=== PATIENT | female | born 1945 | race Caucasian/White ===

== ENCOUNTER 2016-08-18 21:52 | Inpatient (IN) | payer MEDICARE ==
[2016-08-18] MEDS ORDERED: ONDANSETRON 4 MG/2 ML VIAL IVP STA (22:17)
[2016-08-18] MEDS ORDERED: ASPIRIN 325 MG TAB PO STA (22:56)
[2016-08-18] MEDS ORDERED: SODIUM CHLORIDE 0.9% 1,000 ML IV ONE (22:56)
[2016-08-18] MEDS ORDERED: LABETALOL 5 MG/ML VIAL MDV IVP STA (23:03)
[2016-08-18 23:25] LABS: Basophils % (A) 0 %; CH 32.2; CHCM 37.2; Eosinophils # (A) 0.1 k/uL (0-0.7); Eosinophils % (A) 1 %; HGB 14.2 gm/dL (11.4-16.0); Luc % (Auto) 3; Lymphocytes # (A) 1.1 k/uL (1.0-4.8); Lymphocytes % (A) 14 %; MCH 32.5 pg (25.0-35.0); MCHC 37.5 g/dL (31.0-37.0); MCV 86.7 fL (80.0-100.0); Monocytes # (A) 0.5 k/uL (0-1.0); Monocytes % (A) 7 %; Neutrophils # (A) 5.7 k/uL (1.3-7.7); Neutrophils % (A) 75 %; RBC 4.38 m/uL (3.80-5.40); RDW 12.2 % (11.5-15.5); WBC 7.6 k/uL (3.8-10.6); WBC (Perox) 7.77
[2016-08-18 23:36] LABS: Blood Urea Nitrogen 19 mg/dL (7-17); Calcium 8.8 mg/dL (8.4-10.2); Carbon Dioxide 26 mmol/L (22-30); Chloride 85 mmol/L (98-107); Glucose 103 mg/dL (74-99); Non-African American GFR(MDRD) >60 (>60 ml/min/1.73 sqM)
[2016-08-18 23:37] LABS: Anion Gap 8 mmol/L
[2016-08-18 23:41] LABS: Potassium 2.8 mmol/L (3.5-5.1); Sodium 119 mmol/L (137-145)
[2016-08-18] MEDS ORDERED: POTASSIUM CHLORIDE ER 20 MEQ TAB.ER PO STA (23:44)
[2016-08-18] MEDS ORDERED: METOCLOPRAMIDE 5 MG/ML 2 ML VIAL IVP STA (23:58)
[2016-08-18] MEDS ORDERED: diphenhydrAMINE 50 MG/ML 1 ML VIAL IVP STA (23:58)
--- NOTE | 2016-08-19 00:14 | XR ---
Exam: XR CXR 2 VIEWS History: Dizzy. Comparison: 03/19/13. Technique: 2 views. Findings: No focal consolidation or significant effusion. The heart shadow is mildly enlarged. Impression: Mildly enlarged heart shadow. No focal consolidation or significant pleural effusion.
[2016-08-19] MEDS ORDERED: NALOXONE 0.4 MG/ML 1 ML VIAL IV PRN (00:17)
[2016-08-19] MEDS ORDERED: MORPHINE SULFATE 4 MG/ML SYRINGE IV PRN (00:17)
[2016-08-19] MEDS ORDERED: ONDANSETRON 4 MG/2 ML VIAL IVP PRN (00:17)
[2016-08-19] MEDS ORDERED: HYDROcodone/APAP 5-325MG 1 EACH TAB PO PRN (00:25)
[2016-08-19] MEDS ORDERED: LORazepam 0.5 MG TAB PO PRN (00:25)
[2016-08-19] MEDS ORDERED: SODIUM CHLORIDE 0.9% 1,000 ML IV SCH (00:30)
--- NOTE | 2016-08-19 00:30 | ED ---
General Adult HPI - General Chief complaint: ENT Stated complaint: FLU-LIKE SYMPTOMS; LIGHT HEADEDNESS Source: EMS Mode of arrival: EMS Limitations: no limitations - History of Present Illness Initial comments: 71-year-old female presented for evaluation of a constellation of symptoms including dizziness, nausea, vomiting, shortness of breath, and lightheadedness. She states that she has been intermittently having his symptoms since Friday but then became much worse. She states she was seen by Dr. Ward who changed her blood pressure medication from diltiazem to hydrochlorothiazide. She was also recently started on a Z-Matthew and prednisone for strep throat although the initial swab was negative and the culture was sent. 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 Gonzalez. Severity scale (1-10): 0 - Related Data Home Medications Medication Instructions Recorded Confirmed Aspirin 325 mg PO DAILY 09/10/15 08/18/16 Colesevelam [Welchol] 1,250 mg PO TID-W/MEALS 09/10/15 08/18/16 LORazepam [Ativan] 0.5 mg PO BID PRN 09/10/15 08/18/16 Levothyroxine Sodium [Synthroid] 50 mcg PO HS 09/10/15 08/18/16 Losartan Potassium 100 mg PO AC-BRKFST 09/10/15 08/18/16 OXcarbazepine [Trileptal] 300 mg PO QAM 09/10/15 08/18/16 amLODIPine BESYLATE [Norvasc] 10 mg PO AC-SUPPER 09/10/15 08/18/16 OXcarbazepine [Oxcarbazepine] 600 mg PO HS 09/11/15 08/18/16 Azithromycin [Zithromax Z-pack] See Taper PO DAILY 08/18/16 08/18/16 Hydrochlorothiazide 25 mg PO QAM 08/18/16 08/18/16 Hydrocodone/Acetaminophen [[place] 1 tab PO Q6HR PRN 08/18/16 08/18/16 5-325] methylPREDNISolone Dose Pack See Taper PO DAILY 08/18/16 08/18/16 [Medrol Dose Pack] Allergies Allergy/AdvReac Type Severity Reaction Status Date / Time nitroglycerin AdvReac Seizure Verified 08/18/16 23:09 with Patch Review of Systems ROS Statement: Those systems with pertinent positive or pertinent negative responses have been documented in the HPI. ROS Other: All systems not noted in ROS Statement are negative. Constitutional: Denies: fever, chills Eyes: Denies: eye pain, eye discharge ENT: Reports: throat pain. Denies: ear pain Respiratory: Reports: dyspnea. Denies: cough Cardiovascular: Denies: chest pain, palpitations, dyspnea on exertion, orthopnea Endocrine: Reports: fatigue. Denies: polydipsia, polyuria Gastrointestinal: Denies: abdominal pain, nausea, vomiting, diarrhea, constipation, hematemesis Genitourinary: Denies: urgency, dysuria Musculoskeletal: Denies: back pain, arthralgia, myalgia Skin: Denies: rash, lesions Neurological: Reports: weakness, other (Dizziness/lightheadedness). Denies: headache Psychiatric: Denies: anxiety, depression Hematological/Lymphatic: Denies: easy bleeding, easy bruising 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 Past Anesthesia/Blood Transfusion Reactions: No Reported Reaction Past Psychological History: No Psychological Hx Reported Smoking Status: Never smoker Past Alcohol Use History: None Reported Past Drug Use History: None Reported - Past Family History Mother Family Medical History: Congestive Heart Failure (CHF), Dementia, Renal Disease Father Family Medical History: Myocardial Infarction ([place]) General Exam Limitations: no limitations General appearance: alert, in no apparent distress Head exam: Present: atraumatic, normocephalic, normal inspection Eye exam: Present: normal appearance, PERRL, EOMI. Absent: scleral icterus, conjunctival injection, periorbital swelling ENT exam: Present: normal exam, mucous membranes moist Neck exam: Present: normal inspection. Absent: tenderness, meningismus, lymphadenopathy Respiratory exam: Present: normal lung sounds bilaterally. Absent: respiratory distress, wheezes, rales, rhonchi, stridor Cardiovascular Exam: Present: regular rate, normal rhythm, normal heart sounds. Absent: systolic murmur, diastolic murmur, rubs, gallop, clicks GI/Abdominal exam: Present: soft, normal bowel sounds. Absent: distended, tenderness, guarding, rebound, rigid Rectal exam: Present: deferred Extremities exam: Present: normal inspection, full ROM, normal capillary refill. Absent: tenderness, pedal edema, joint swelling, calf tenderness Back exam: Present: normal inspection Neurological exam: Present: alert, oriented X3, CN II-XII intact Psychiatric exam: Present: normal affect, normal mood Skin exam: Present: warm, dry, intact, normal color. Absent: rash Course Vital Signs 08/18/16 08/18/16 08/18/16 21:56 23:17 23:52 Temperature 97.6 F 97.9 F Pulse Rate 67 65 Pulse Rate [ Speech And Hearing Director ] Respiratory 16 18 16 Rate Blood Pressure 220/93 165/71 Blood Pressure 187/79 [Right Arm Supine] O2 Sat by Pulse 100 99 98 Oximetry 08/19/16 01:36 Temperature 98.0 F Pulse Rate Pulse Rate [ 75 Speech And Hearing Director ] Respiratory 16 Rate Blood Pressure Blood Pressure 179/75 [Right Arm Supine] O2 Sat by Pulse 97 Oximetry EKG Findings - EKG Comments: EKG Findings:: Normal sinus rhythm with LVH and a ventricular rate of 67, LOREE 164, QRS 120, QT/QTc 456/481. Medical Decision Making - Medical Decision Making 71-year-old female with a history of AVM repair in her brain presenting for evaluation of dizziness, nausea, shortness of breath, and lightheadedness. She recently had some medication changes from the size and hydrochlorothiazide for her hypertension. Otherwise she states she recently had a CT of her head some months ago which was normal and showed no changes. On physical examination the patient does appear to be in no apparent distress. Cranial nerves II through XII are intact without focal neurologic deficit. The patient required assistance and relating the hallway however due to the dizziness. Initially she was quite hypertensive however on repeat evaluations her blood pressure continued to improve. She required Zofran for continued nausea. Labs revealed a hyponatremia and hypokalemia and given these results decision was made to admit her. Admitting physician and had no further requests for her and admission orders were placed without further issue. - Lab Data Result diagrams: 08/18/16 23:12 08/18/16 23:12 Lab Results 08/18/16 08/18/16 08/18/16 Range/Units 23:12 23:12 23:12 WBC 7.6 (3.8-10.6) k/uL RBC 4.38 (3.80-5.40) m/uL Hgb 14.2 (11.4-16.0) gm/dL Hct 38.0 (34.0-46.0) % MCV 86.7 (80.0-100.0) fL MCH 32.5 (25.0-35.0) pg MCHC 37.5 H (31.0-37.0) g/dL RDW 12.2 (11.5-15.5) % Plt Count 220 (150-450) k/uL Neutrophils % 75 % Lymphocytes % 14 % Monocytes % 7 % Eosinophils % 1 % Basophils % 0 % Neutrophils # 5.7 (1.3-7.7) k/uL Lymphocytes # 1.1 (1.0-4.8) k/uL Monocytes # 0.5 (0-1.0) k/uL Eosinophils # 0.1 (0-0.7) k/uL Basophils # 0.0 (0-0.2) k/uL Sodium 119 L* (137-145) mmol/L Potassium 2.8 L* (3.5-5.1) mmol/L Chloride 85 L (98-107) mmol/L Carbon Dioxide 26 (22-30) mmol/L Anion Gap 8 mmol/L BUN 19 H (7-17) mg/dL Creatinine 0.60 (0.52-1.04) mg/dL Est GFR (MDRD) Af Amer >60 (>60 ml/min/1.73 sqM) Est GFR (MDRD) Non-Af >60 (>60 ml/min/1.73 sqM) Glucose 103 H (74-99) mg/dL Calcium 8.8 (8.4-10.2) mg/dL Magnesium (1.6-2.3) mg/dL Troponin I (0.000-0.034) ng/mL NT-Pro-B Natriuret Pep 73 pg/mL 08/18/16 08/18/16 Range/Units 23:12 23:12 WBC (3.8-10.6) k/uL RBC (3.80-5.40) m/uL Hgb (11.4-16.0) gm/dL Hct (34.0-46.0) % MCV (80.0-100.0) fL MCH (25.0-35.0) pg MCHC (31.0-37.0) g/dL RDW (11.5-15.5) % Plt Count (150-450) k/uL Neutrophils % % Lymphocytes % % Monocytes % % Eosinophils % % Basophils % % Neutrophils # (1.3-7.7) k/uL Lymphocytes # (1.0-4.8) k/uL Monocytes # (0-1.0) k/uL Eosinophils # (0-0.7) k/uL Basophils # (0-0.2) k/uL Sodium (137-145) mmol/L Potassium (3.5-5.1) mmol/L Chloride (98-107) mmol/L Carbon Dioxide (22-30) mmol/L Anion Gap mmol/L BUN (7-17) mg/dL Creatinine (0.52-1.04) mg/dL Est GFR (MDRD) Af Amer (>60 ml/min/1.73 sqM) Est GFR (MDRD) Non-Af (>60 ml/min/1.73 sqM) Glucose (74-99) mg/dL Calcium (8.4-10.2) mg/dL Magnesium 1.6 (1.6-2.3) mg/dL Troponin I <0.012 (0.000-0.034) ng/mL NT-Pro-B Natriuret Pep pg/mL Disposition Clinical Impression: Hyponatremia, Hypokalemia, Dizziness Disposition: ADMITTED IP TO THIS [facility] Decision to Admit Reason: Admit from EC Decision Date: 08/19/16 Decision Time: 00:29
[2016-08-19] MEDS: ASPIRIN 325 MG TAB PO SCH (07:30)
[2016-08-19] MEDS: OXcarbazepine 300 MG TAB PO SCH (07:30)
[2016-08-19] MEDS: LOSARTAN 50 MG TAB PO SCH (07:31)
[2016-08-19] MEDS: COLESEVELAM 625 MG TAB PO SCH ×3 (07:44→17:56)
[2016-08-19 07:48] LABS: Basophils % (A) 1 %; CH 32.4; CHCM 35.9; Eosinophils % (A) 1 %; HCT 38.6 % (34.0-46.0); HDW 2.33; HGB 13.5 gm/dL (11.4-16.0); Luc # (Auto) 0.16; Luc % (Auto) 3; Lymphocytes # (A) 1.4 k/uL (1.0-4.8); Lymphocytes % (A) 23 %; MCH 31.6 pg (25.0-35.0); MCV 90.3 fL (80.0-100.0); Mean Platelet Volume 6.2; Monocytes # (A) 0.4 k/uL (0-1.0); Monocytes % (A) 7 %; Neutrophils # (A) 3.9 k/uL (1.3-7.7); Neutrophils % (A) 66 %; RBC 4.27 m/uL (3.80-5.40); RDW 12.5 % (11.5-15.5); WBC (Perox) 6.26
[2016-08-19 07:59] LABS: Anion Gap 8 mmol/L; Blood Urea Nitrogen 14 mg/dL (7-17); Calcium 9.1 mg/dL (8.4-10.2); Carbon Dioxide 28 mmol/L (22-30); Chloride 93 mmol/L (98-107); Glucose 89 mg/dL (74-99); Non-African American GFR(MDRD) >60 (>60 ml/min/1.73 sqM); Potassium 3.4 mmol/L (3.5-5.1); Sodium 129 mmol/L (137-145)
[2016-08-19] MEDS ORDERED: HYDROCHLOROTHIAZIDE 25 MG TAB PO SCH (09:00)
[2016-08-19] MEDS ORDERED: Potassium Replacement Protocol 1 EACH MISC MISCELLANE PRN (11:23)
[2016-08-19] MEDS ORDERED: DEXTROSE 5% IN WATER 1,000 ML IV ONE (12:29)
[2016-08-19] MEDS: POTASSIUM CHLORIDE ER 20 MEQ TAB.ER PO SCH ×2 (12:30→13:45)
--- NOTE | 2016-08-19 12:35 | P.NPCON ---
History of Present Illness - Reason for Consult hyponatremia - History of Present Illness Reason for consultation: Hyponatremia History of present illness: Patient is a 71-year-old female seen in renal consultation for hyponatremia. Patient's sodium level was 119 on admission and he was started on IV hydration. Her sodium level this morning is 129. Patient was recently started on hydrochlorothiazide last Friday. She also developed nausea and some vomiting over the last few days. She was dizzy as well. She was having a sore throat for which she was evaluated at an urgent care and given antibiotics. Patient didn't really feel much better in terms of her nausea and dizziness and subsequently came to the hospital. Currently she is resting in bed. She feels better. No further vomiting or diarrhea. Denies chest pain or shortness of breath. No history of renal disease. Denies any family history of renal disease. GFR is at baseline. She denies drinking excessive amounts of liquids. Her oral intake the last few days has been poor due to nausea. She is currently maintained on normal saline running at 75 mL an hour. Vital signs are stable. General: The patient appeared well nourished and normally developed. HEENT: Head exam is unremarkable. Neck is without jugular venous distension. LUNGS: Lungs are clear to auscultation and percussion. Breath sounds decreased. HEART: Rate and Rhythm are regular. First and second heart sounds normal. No murmurs, rubs or gallops. ABDOMEN: Abdominal exam reveals normal bowel sounds. Non-tender and non- distended. No evidence of peritonitis. EXTREMITITES: No clubbing, cyanosis, or edema. 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 Past Anesthesia/Blood Transfusion Reactions: No Reported Reaction Past Psychological History: No Psychological Hx Reported Smoking Status: Never smoker Past Alcohol Use History: None Reported Past Drug Use History: None Reported - Past Family History Mother Family Medical History: Congestive Heart Failure (CHF), Dementia, Renal Disease Additional Family Medical History / Comment(s): in her 90s Father Family Medical History: Myocardial Infarction ([place]) Medications and Allergies Home Medications Medication Instructions Recorded Confirmed Type Aspirin 325 mg PO DAILY 09/10/15 08/18/16 History Colesevelam [Welchol] 1,250 mg PO TID-W/MEALS 09/10/15 08/18/16 History LORazepam [Ativan] 0.5 mg PO BID PRN 09/10/15 08/18/16 History Levothyroxine Sodium [Synthroid] 50 mcg PO HS 09/10/15 08/18/16 History Losartan Potassium 100 mg PO AC-BRKFST 09/10/15 08/18/16 History OXcarbazepine [Trileptal] 300 mg PO QAM 09/10/15 08/18/16 History amLODIPine BESYLATE [Norvasc] 10 mg PO AC-SUPPER 09/10/15 08/18/16 History OXcarbazepine [Oxcarbazepine] 600 mg PO HS 09/11/15 08/18/16 History Azithromycin [Zithromax Z-pack] See Taper PO DAILY 08/18/16 08/18/16 History Hydrochlorothiazide 25 mg PO QAM 08/18/16 08/18/16 History Hydrocodone/Acetaminophen [[place] 1 tab PO Q6HR PRN 08/18/16 08/18/16 History 5-325] methylPREDNISolone Dose Pack See Taper PO DAILY 08/18/16 08/18/16 History [Medrol Dose Pack] Allergies Allergy/AdvReac Type Severity Reaction Status Date / Time nitroglycerin AdvReac Seizure Verified 08/18/16 23:09 with Patch Physical Exam Vitals: Vital Signs Temp Pulse Pulse Resp BP BP Pulse Ox 08/19/16 07:00 97.2 F L 61 16 140/60 95 08/19/16 03:00 97.7 F 70 16 163/78 96 08/19/16 01:36 98.0 F 75 16 179/75 97 08/18/16 23:52 97.9 F 16 187/79 98 08/18/16 23:17 65 18 165/71 99 08/18/16 21:56 97.6 F 67 16 220/93 100 Intake and Output 08/18/16 08/19/16 08/19/16 22:59 06:59 14:59 Other: Voiding Method Bedside Commode # Voids 1 1 Weight 87.09 kg 81 kg Results - Lab Results Most recent lab results Calcium 9.1 mg/dL (8.4-10.2) 08/19/16 07:09 Magnesium 1.6 mg/dL (1.6-2.3) 08/18/16 23:12 08/19/16 07:09 08/19/16 11:52 Assessment and Plan Plan: Assessment: #1. Hypovolemic hyponatremia secondary to thiazide diuretics along with vomiting/poor oral intake. Improving with IV hydration. Sodium level was 119 on admission and is up to 129 this morning. #2. Hypokalemia secondary to GI losses as well as thiazide diuretic. Improved. #3. Benign hypertension. Better controlled now. Plan: Discontinue normal saline. Start D5W to be run at 50 mL an hour for the next 5 hours. Repeat sodium level at 5 PM today. Thiazide diuretic has been discontinued. Encouraged oral intake. Avoid rapid correction of sodium. Thank you for the consultation. I will continue to follow the patient with you during her hospital stay.
--- NOTE | 2016-08-19 13:16 | CT ---
EXAMINATION TYPE: CT brain wo con DATE OF EXAM: 08/19/2016 COMPARISON: Previous study dated 09/10/2015 HISTORY: Patient complains of dizziness. CT DLP: 1012 mGycm Automated exposure control for dose reduction was used. FINDINGS: There are mild, generalized changes of sulcal prominence and ventriculomegaly, compatible with atroph ic change. There is evidence of an old left posterior cerebral artery infarct. There is diffuse periv entricular white matter lucency, compatible with chronic white matter ischemic change. Areas of questionable ischemia along the precentral gyrus on the right are not as conspicuous on toda y's examination. There is no mass effect, midline shift or intracranial blood. Visualized portions of the paranasal sinuses and mastoids are clear. No depressed skull fracture is s een. IMPRESSION: 1. NO ACUTE INTRACRANIAL ABNORMALITY. 2. 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 3. MILD ATROPHY. 4. CHRONIC WHITE MATTER ISCHEMIC CHANGE.
[2016-08-19 15:50] VITALS: RESP 18
[2016-08-19] MEDS ORDERED: amLODIPine 10 MG TAB PO SCH (17:30)
[2016-08-19 17:40] LABS: Anion Gap 7 mmol/L; Blood Urea Nitrogen 17 mg/dL (7-17); Calcium 9.5 mg/dL (8.4-10.2); Carbon Dioxide 30 mmol/L (22-30); Chloride 90 mmol/L (98-107); Glucose 95 mg/dL (74-99); Non-African American GFR(MDRD) >60 (>60 ml/min/1.73 sqM); Potassium 3.6 mmol/L (3.5-5.1); Sodium 127 mmol/L (137-145)
--- NOTE | 2016-08-19 19:35 | P.HPIM ---
History of Present Illness H&P Date: 08/19/16 71-year-old female with history of essential hypertension who was recently started on hydrochlorothiazide over week ago for uncontrolled hypertension comes in the hospital with the complaints of dizziness and headaches. Patient apparently has had some upper respiratory symptoms was started on prednisone and a Z-Matthew 4 days ago at urgent care center Over the last 24 hours prior to admission patient was noted to have significant dizziness came in the hospital was noted to have a serum sodium of 119 Or night patient was given IV fluids thereafter her serum sodium improved to 129 At the time of my evaluation patient has having any headaches blurry vision nausea vomiting chest pain patient does state to have a cough nonproductive in nature at this time No urinary urgency frequency or diarrhea is reported Patient states that she drinks about 4-5 cups of water every day Does have a history of AVM status post surgical resection has had some atypical seizure-like activity which is controlled with Trileptal Review of Systems All systems: negative (Noted in HPI) 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 Past Anesthesia/Blood Transfusion Reactions: No Reported Reaction Past Psychological History: No Psychological Hx Reported Smoking Status: Never smoker Past Alcohol Use History: None Reported Past Drug Use History: None Reported - Past Family History Mother Family Medical History: Congestive Heart Failure (CHF), Dementia, Renal Disease Additional Family Medical History / Comment(s): in her 90s Father Family Medical History: Myocardial Infarction ([place]) Medications and Allergies Home Medications Medication Instructions Recorded Confirmed Type Aspirin 325 mg PO DAILY 09/10/15 08/18/16 History Colesevelam [Welchol] 1,250 mg PO TID-W/MEALS 09/10/15 08/18/16 History LORazepam [Ativan] 0.5 mg PO BID PRN 09/10/15 08/18/16 History Levothyroxine Sodium [Synthroid] 50 mcg PO HS 09/10/15 08/18/16 History Losartan Potassium 100 mg PO AC-BRKFST 09/10/15 08/18/16 History OXcarbazepine [Trileptal] 300 mg PO QAM 09/10/15 08/18/16 History amLODIPine BESYLATE [Norvasc] 10 mg PO AC-SUPPER 09/10/15 08/18/16 History OXcarbazepine [Oxcarbazepine] 600 mg PO HS 09/11/15 08/18/16 History Azithromycin [Zithromax Z-pack] See Taper PO DAILY 08/18/16 08/18/16 History Hydrochlorothiazide 25 mg PO QAM 08/18/16 08/18/16 History Hydrocodone/Acetaminophen [[place] 1 tab PO Q6HR PRN 08/18/16 08/18/16 History 5-325] methylPREDNISolone Dose Pack See Taper PO DAILY 08/18/16 08/18/16 History [Medrol Dose Pack] Allergies Allergy/AdvReac Type Severity Reaction Status Date / Time nitroglycerin AdvReac Seizure Verified 08/18/16 23:09 with Patch Physical Exam Vitals: Vital Signs Temp Pulse Pulse Resp BP BP Pulse Ox 08/19/16 15:00 96.6 F L 66 18 135/61 100 08/19/16 07:00 97.2 F L 61 16 140/60 95 08/19/16 03:00 97.7 F 70 16 163/78 96 08/19/16 01:36 98.0 F 75 16 179/75 97 08/18/16 23:52 97.9 F 16 187/79 98 08/18/16 23:17 65 18 165/71 99 08/18/16 21:56 97.6 F 67 16 220/93 100 Intake and Output 08/19/16 08/19/16 08/19/16 06:59 14:59 22:59 Other: Voiding Method Bedside Commode # Voids 1 3 Weight 81 kg Physical exam Gen. appearance oriented 3 in no distress Neck is supple no JVD Lungs good air entry clear to auscultation no rhonchi or wheezing Heart S1-S2 heard regular rate and rhythm no murmurs appreciated Abdomen is soft nontender no organomegaly bowel sounds are intact Neurologically cranial nerves II-12 grossly intact no focal motor or sensory deficits noted Skin no abnormalities appreciated Results CBC & Chem 7: 08/19/16 07:09 08/19/16 17:16 Labs: Abnormal Lab Results - Last 24 Hours (Table) 08/18/16 08/18/16 08/19/16 Range/Units 23:12 23:12 07:09 MCHC 37.5 H (31.0-37.0) g/dL Sodium 119 L* 129 L (137-145) mmol/L Potassium 2.8 L* 3.4 L (3.5-5.1) mmol/L Chloride 85 L 93 L (98-107) mmol/L BUN 19 H (7-17) mg/dL Glucose 103 H (74-99) mg/dL TSH (0.465-4.680) mIU/L Ur Random Sodium (30-90) mmol/L 08/19/16 08/19/16 08/19/16 Range/Units 11:52 12:00 17:16 MCHC (31.0-37.0) g/dL Sodium 129 L 127 L (137-145) mmol/L Potassium (3.5-5.1) mmol/L Chloride 90 L (98-107) mmol/L BUN (7-17) mg/dL Glucose (74-99) mg/dL TSH 5.760 H (0.465-4.680) mIU/L Ur Random Sodium 96 H (30-90) mmol/L Thrombosis Risk Factor Assmnt - Choose All That Apply Each Factor Represents 1 point: Obesity (BMI >25), Swollen legs (current) Other Risk Factors: Yes Each Risk Factor Represents 2 Points: Age 61-74 years Thrombosis Risk Factor Assessment Total Risk Factor Score: 4 Thrombosis Risk Factor Assessment Level: Moderate Risk Assessment and Plan Plan: 1 symptomatic hyponatremia likely due to a combination of dehydration and use of hydrochlorothiazide para #2 essential hypertension for a #3 history of AVM #4 chronic headaches #5 dyslipidemia Plan A computed tomography scan of the head will be done to rule out any abnormalities Serum sodium has rapidly been corrected we'll repeat a serum sodium if patient' s sodium is around 129 may need D5 W we'll have nephrology evaluate the patient has well If patient's sodium is improved and asymptomatic over the next 24 hours patient will be discharged home on a different medication depending on her blood pressures during the hospital physician This was discussed with the patient and the medical or surgical instrument maker
[2016-08-19] MEDS ORDERED: LEVOTHYROXINE 50 MCG TAB PO SCH (21:00)
[2016-08-19] MEDS ORDERED: OXcarbazepine 300 MG TAB PO SCH (21:00)
[2016-08-20] MEDS: COLESEVELAM 625 MG TAB PO SCH (07:59)
[2016-08-20] MEDS: LOSARTAN 50 MG TAB PO SCH (07:59)
[2016-08-20] MEDS: OXcarbazepine 300 MG TAB PO SCH (07:59)
[2016-08-20] MEDS: ASPIRIN 325 MG TAB PO SCH (07:59)
[2016-08-20 08:04] VITALS: BP 142/68; PULSE 63; TEMP 97.1
[2016-08-20 08:13] LABS: Basophils # (A) 0.1 k/uL (0-0.2); Basophils % (A) 1 %; CH 31.6; CHCM 35.5; Eosinophils # (A) 0.1 k/uL (0-0.7); Eosinophils % (A) 2 %; HCT 39.8 % (34.0-46.0); HDW 2.44; HGB 14.3 gm/dL (11.4-16.0); Luc # (Auto) 0.21; Luc % (Auto) 3; Lymphocytes # (A) 1.8 k/uL (1.0-4.8); Lymphocytes % (A) 27 %; MCHC 35.9 g/dL (31.0-37.0); MCV 89.1 fL (80.0-100.0); Mean Platelet Volume 6.1; Monocytes # (A) 0.5 k/uL (0-1.0); Monocytes % (A) 8 %; Neutrophils # (A) 3.8 k/uL (1.3-7.7); Neutrophils % (A) 59 %; RBC 4.46 m/uL (3.80-5.40); RDW 12.4 % (11.5-15.5); WBC 6.5 k/uL (3.8-10.6); WBC (Perox) 6.86
--- NOTE | 2016-08-20 08:28 | P.DS ---
Providers Date of admission: 08/19/16 00:28 Attending physician: Nate Melo Consults: 08/19/16 00:21 Consult Physician Routine Consulting Provider: Boni Schmidt Consult Reason/Comments: Hyponatremia Do you want consulting provider notified?: Yes Primary care physician: Nate Melo - Discharge Diagnosis(es) (1) Dizziness Current Visit: Yes Status: Acute (2) Hyponatremia Current Visit: Yes Status: Acute (3) Weakness Current Visit: No Status: Acute Hospital Course: This is a discharge summary a 71-year-old white female essentially admitted for hyponatremia. Etiology is related to the fact that she was recently changed hydrochlorothiazide by her barrel cap setter for elevated blood pressure. The patient also had element of pharyngitis which caused decreased appetite. The patient was rehydrated and has not been stable. BMP is pending for this morning. She will be cleared once nephrology clears the patient. Follow-up with me in 3 days for BMP. Patient Condition at Discharge: Stable Plan - Discharge Summary New Discharge Prescriptions: Continue Aspirin 325 mg PO DAILY OXcarbazepine [Trileptal] 300 mg PO QAM Losartan Potassium 100 mg PO AC-BRKFST amLODIPine BESYLATE [Norvasc] 10 mg PO AC-SUPPER Colesevelam [Welchol] 1,250 mg PO TID-W/MEALS Levothyroxine Sodium [Synthroid] 50 mcg PO HS LORazepam [Ativan] 0.5 mg PO BID PRN PRN Reason: Onset of Seizure OXcarbazepine [Oxcarbazepine] 600 mg PO HS Azithromycin [Zithromax Z-pack] See Taper PO DAILY methylPREDNISolone Dose Pack [Medrol Dose Pack] See Taper PO DAILY Hydrocodone/Acetaminophen [[place] 5-325] 1 tab PO Q6HR PRN PRN Reason: Headache Discontinued Hydrochlorothiazide 25 mg PO QAM Discharge Medication List Aspirin 325 mg PO DAILY 09/10/15 [History] Colesevelam [Welchol] 1,250 mg PO TID-W/MEALS 09/10/15 [History] LORazepam [Ativan] 0.5 mg PO BID PRN 09/10/15 [History] Levothyroxine Sodium [Synthroid] 50 mcg PO HS 09/10/15 [History] Losartan Potassium 100 mg PO AC-BRKFST 09/10/15 [History] OXcarbazepine [Trileptal] 300 mg PO QAM 09/10/15 [History] amLODIPine BESYLATE [Norvasc] 10 mg PO AC-SUPPER 09/10/15 [History] OXcarbazepine [Oxcarbazepine] 600 mg PO HS 09/11/15 [History] Azithromycin [Zithromax Z-pack] See Taper PO DAILY 08/18/16 [History] Hydrocodone/Acetaminophen [[place] 5-325] 1 tab PO Q6HR PRN 08/18/16 [History] methylPREDNISolone Dose Pack [Medrol Dose Pack] See Taper PO DAILY 08/18/16 [ History] Follow up Appointment(s)/Referral(s): Nate Melo MD [Primary Care Provider] - 3 Days Discharge Disposition: HOME SELF-CARE
[2016-08-20 08:29] LABS: Anion Gap 9 mmol/L; Blood Urea Nitrogen 15 mg/dL (7-17); Calcium 9.6 mg/dL (8.4-10.2); Carbon Dioxide 29 mmol/L (22-30); Chloride 92 mmol/L (98-107); Glucose 84 mg/dL (74-99); Magnesium 1.6 mg/dL (1.6-2.3); Non-African American GFR(MDRD) >60 (>60 ml/min/1.73 sqM); Potassium 3.4 mmol/L (3.5-5.1); Sodium 130 mmol/L (137-145)
== END 2016-08-20 09:22 | disposition home or self-care (01) | DRG 641 ==
LOC: EC 21:52 → 4MS4W 08-19 00:28
PROVIDERS: ADMIT Family Medicine; ATTEND Family Medicine
DX: E87.1 Hypo-osmolality and hyponatremia (principal); E86.0 Dehydration; G40.909 Epilepsy, unspecified, not intractable, without status epilepticus; E78.5 Hyperlipidemia, unspecified; T50.2X5A Adverse effect of carbonic-anhydrase inhibitors, benzothiadiazides and other diuretics, initial encounter; E87.6 Hypokalemia; I10 Essential (primary) hypertension; J02.9 Acute pharyngitis, unspecified; E86.1 Hypovolemia; R51 Headache; Z79.82 Long term (current) use of aspirin; Z79.899 Other long term (current) drug therapy; Z88.8 Allergy status to other drugs, medicaments and biological substances; Z82.49 Family history of ischemic heart disease and other diseases of the circulatory system; Y92.009 Unspecified place in unspecified non-institutional (private) residence as the place of occurrence of the external cause
CPT/HCPCS: 36415; 70450; 71020; 80048; 83735; 83880; 83930; 83935; 84295; 84300; 84439; 84443; 84484; 84560; 85025; 93005; 96361; 96374; 96375; 99285

== ENCOUNTER → 2016-10-07 | Outpatient (CLI) | payer MEDICARE ==
--- NOTE | 2016-10-07 11:06 | US ---
EXAMINATION TYPE: US kidneys/renal and bladder DATE OF EXAM: 10/07/2016 COMPARISON: NONE CLINICAL HISTORY: Hyponatremia E87.1. EXAM MEASUREMENTS: Right Kidney: 10.8 x 4.8 x 4.6 cm Left Kidney: 10.7 x 5.5 x 5.5 cm Right Kidney: no evidence of hydronephrosis or mass Left Kidney: hyperechoic area laterally = 0.9 x 0.8 x 1.1cm . This may represent focal cortical defec t and insinuating perirenal fat versus hyperechoic lesion such as an angiomyolipoma. Bladder: appears wnl Bilateral Jets seen: Yes There is no evidence for hydronephrosis at this point in time. No nephrolithiasis is seen. No kendrick s are identified. The urinary bladder is anechoic. Bilateral ureteral jets are seen. IMPRESSION: 1. No evidence of nephrolithiasis or hydronephrosis. 2. 9 mm hyperechoic area of the lateral left renal cortex which could represent a focal cortical defe ct within terminating perirenal fat or a hyperechoic lesion such as an angiomyolipoma.
== END | disposition home or self-care (01) ==
LOC: RADUSWWP 09:40
PROVIDERS: ATTEND Internal Medicine Nephrology
DX: E87.1 Hypo-osmolality and hyponatremia (principal)
CPT/HCPCS: 76770

== ENCOUNTER 2017-05-27 08:29 | Emergency (ER) | payer MEDICARE ==
[2017-05-27] MEDS ORDERED: SODIUM CHLORIDE 0.9% 500 ML IV STA (09:01)
--- NOTE | 2017-05-27 09:03 | ED ---
General Adult HPI - General Chief complaint: Abdominal Pain Stated complaint: poss med reaction Time Seen by Provider: 05/27/17 08:52 Source: patient, RN notes reviewed Mode of arrival: ambulatory Limitations: no limitations - History of Present Illness Initial comments: Patient 72-year-old female presenting to the emergency room today with a chief complaint of diarrhea. Patient does admit that she is diarrhea was so bright red blood per rectum at times over the last 5 days. Patient does admit she is felt some cramping in the abdomen. She states difficult time eating. She states she feels like she eats and things are going straight through her. She does admit that she had a tooth infection approximately one month ago was on antibiotics of penicillin for approximately 3 days switch to clindamycin which she took for 2 days was having a reaction to and was changed to azithromycin which she finished the entire course. Patient states she was doing well for approximately 2 weeks before the symptoms started. Patient doesn't that she had a stool sample given to the family physician and was called with a message stating that was positive. Patient denies any other complaints or symptoms currently. Patient denies any recent fever, chills, shortness of breath, chest pain, back pain, nausea or vomiting, numbness or tingling, dysuria or hematuria , constipation, headaches or visual changes, or any other complaints. - Related Data Home Medications Medication Instructions Recorded Confirmed Aspirin 325 mg PO DAILY 09/10/15 05/27/17 Colesevelam [Welchol] 1,875 mg PO AC-BRKFST 09/10/15 05/27/17 LORazepam [Ativan] 0.5 mg PO BID PRN 09/10/15 05/27/17 Levothyroxine Sodium [Synthroid] 50 mcg PO HS 09/10/15 05/27/17 Losartan Potassium 100 mg PO AC-BRKFST 09/10/15 05/27/17 OXcarbazepine [Trileptal] 300 mg PO HS 09/10/15 05/27/17 amLODIPine BESYLATE [Norvasc] 10 mg PO AC-SUPPER 09/10/15 05/27/17 Acetaminophen-Codeine 300-30mg 1 tab PO Q4-6H PRN 05/27/17 05/27/17 [Tylenol w/codeine #3] Colesevelam [Welchol] 1,250 mg PO AC-LUNCH 05/27/17 05/27/17 Multivitamins, Thera [Multivitamin 1 tab PO DAILY 05/27/17 05/27/17 (formulary)] Allergies Allergy/AdvReac Type Severity Reaction Status Date / Time nitroglycerin AdvReac Seizure Verified 05/27/17 10:12 with Patch Review of Systems ROS Statement: Those systems with pertinent positive or pertinent negative responses have been documented in the HPI. ROS Other: All systems not noted in ROS Statement are negative. 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 Eye: Pupils are equal, round and reactive to light, extra-ocular movements are intact. No nystagmus. There is normal conjunctiva bilaterally. No signs of icterus. Ears, nose, mouth and throat: There are moist mucous membranes and no oral lesions. Neck: The neck is supple, there is no tenderness or JVD. Cardiovascular: There is a regular rate and rhythm. No murmur, rub or gallop is appreciated. Respiratory: Lungs are clear to auscultation, respirations are non-labored, breath sounds are equal. No wheezes, stridor, rales, or rhonchi. Gastrointestinal: Soft, non-distended, non-tender abdomen without masses or organomegaly noted. There is no rebound or guarding present. No CVA tenderness. Bowel sounds are unremarkable. Musculoskeletal: Normal ROM, no tenderness. Strength 5/5. Sensation intact. Pulses equal bilaterally 2+. Neurological: A&O x 3. CN II-XII intact, There are no obvious motor or sensory deficits. Coordination appears grossly intact. Speech is normal. Skin: Skin is warm and dry and no rashes or lesions are noted. Psychiatric: Cooperative, appropriate mood & affect, normal judgment. Limitations: no limitations Course Vital Signs 05/27/17 05/27/17 08:36 11:00 Temperature 97.6 F Pulse Rate 93 82 Respiratory 20 20 Rate Blood Pressure 138/65 126/64 O2 Sat by Pulse 98 97 Oximetry Medical Decision Making - Medical Decision Making Case discussed in detail with attending physician Dr. Flores. Patient reexamined this time shows no signs of distress. Patient's labs been reviewed. CT of the abdomen and pelvis reviewed and does show findings consistent with colitis versus diverticulitis. They also see a mass left kidney measuring approximately a centimeter and a half. Patient be admitted so on Cipro Flagyl covering for infection with consult to urology for kidney mass. - Lab Data Result diagrams: 05/27/17 09:10 05/27/17 09:10 Lab Results 05/27/17 05/27/17 05/27/17 Range/Units 09:10 09:10 09:10 WBC 8.3 (3.8-10.6) k/uL RBC 4.42 (3.80-5.40) m/uL Hgb 11.8 (11.4-16.0) gm/dL Hct 36.4 (34.0-46.0) % MCV 82.3 (80.0-100.0) fL MCH 26.6 (25.0-35.0) pg MCHC 32.3 (31.0-37.0) g/dL RDW 15.6 H (11.5-15.5) % Plt Count 225 (150-450) k/uL Neutrophils % 82 % Lymphocytes % 9 % Monocytes % 6 % Eosinophils % 2 % Basophils % 1 % Neutrophils # 6.8 (1.3-7.7) k/uL Lymphocytes # 0.8 L (1.0-4.8) k/uL Monocytes # 0.5 (0-1.0) k/uL Eosinophils # 0.1 (0-0.7) k/uL Basophils # 0.0 (0-0.2) k/uL PT 9.8 (9.0-12.0) sec INR 1.0 (<1.2) APTT 22.0 (22.0-30.0) sec Sodium 142 (137-145) mmol/L Potassium 3.7 (3.5-5.1) mmol/L Chloride 107 (98-107) mmol/L Carbon Dioxide 25 (22-30) mmol/L Anion Gap 10 mmol/L BUN 20 H (7-17) mg/dL Creatinine 0.92 (0.52-1.04) mg/dL Est GFR (CKD-EPI)AfAm 72 (>60 ml/min/1.73 sqM) Est GFR (CKD-EPI)NonAf 63 (>60 ml/min/1.73 sqM) Glucose 104 H (74-99) mg/dL Calcium 9.4 (8.4-10.2) mg/dL Total Bilirubin 0.4 (0.2-1.3) mg/dL AST 21 (14-36) U/L ALT 28 (9-52) U/L Alkaline Phosphatase 90 (38-126) U/L Total Protein 6.2 L (6.3-8.2) g/dL Albumin 3.6 (3.5-5.0) g/dL Urine Color Urine Appearance (Clear) Urine pH (5.0-8.0) Ur Specific [place] (1.001-1.035) Urine Protein (Negative) Urine Glucose (UA) (Negative) Urine Ketones (Negative) Urine Blood (Negative) Urine Nitrite (Negative) Urine Bilirubin (Negative) Urine Urobilinogen (<2.0) mg/dL Ur Leukocyte Esterase (Negative) Urine RBC (0-5) /hpf Urine WBC (0-5) /hpf Ur Squamous Epith Cells (0-4) /hpf Urine Bacteria (None) /hpf Hyaline Casts (0-2) /lpf Urine Mucus (None) /hpf Stool Occult Blood (Negative) C. difficile (EIA) Intrp (Negative) 05/27/17 05/27/17 05/27/17 Range/Units 10:00 10:00 10:05 WBC (3.8-10.6) k/uL RBC (3.80-5.40) m/uL Hgb (11.4-16.0) gm/dL Hct (34.0-46.0) % MCV (80.0-100.0) fL MCH (25.0-35.0) pg MCHC (31.0-37.0) g/dL RDW (11.5-15.5) % Plt Count (150-450) k/uL Neutrophils % % Lymphocytes % % Monocytes % % Eosinophils % % Basophils % % Neutrophils # (1.3-7.7) k/uL Lymphocytes # (1.0-4.8) k/uL Monocytes # (0-1.0) k/uL Eosinophils # (0-0.7) k/uL Basophils # (0-0.2) k/uL PT (9.0-12.0) sec INR (<1.2) APTT (22.0-30.0) sec Sodium (137-145) mmol/L Potassium (3.5-5.1) mmol/L Chloride (98-107) mmol/L Carbon Dioxide (22-30) mmol/L Anion Gap mmol/L BUN (7-17) mg/dL Creatinine (0.52-1.04) mg/dL Est GFR (CKD-EPI)AfAm (>60 ml/min/1.73 sqM) Est GFR (CKD-EPI)NonAf (>60 ml/min/1.73 sqM) Glucose (74-99) mg/dL Calcium (8.4-10.2) mg/dL Total Bilirubin (0.2-1.3) mg/dL AST (14-36) U/L ALT (9-52) U/L Alkaline Phosphatase (38-126) U/L Total Protein (6.3-8.2) g/dL Albumin (3.5-5.0) g/dL Urine Color Yellow Urine Appearance Clear (Clear) Urine pH 5.5 (5.0-8.0) Ur Specific [place] 1.021 (1.001-1.035) Urine Protein Trace H (Negative) Urine Glucose (UA) Negative (Negative) Urine Ketones Negative (Negative) Urine Blood Large H (Negative) Urine Nitrite Negative (Negative) Urine Bilirubin Negative (Negative) Urine Urobilinogen <2.0 (<2.0) mg/dL Ur Leukocyte Esterase Moderate H (Negative) Urine RBC >182 H (0-5) /hpf Urine WBC 17 H (0-5) /hpf Ur Squamous Epith Cells 4 (0-4) /hpf Urine Bacteria Rare H (None) /hpf Hyaline Casts 16 H (0-2) /lpf Urine Mucus Many H (None) /hpf Stool Occult Blood Positive H (Negative) C. difficile (EIA) Intrp Negative (Negative) Disposition Clinical Impression: Diverticulitis, Kidney mass Disposition: ADMITTED IP TO THIS HOSP Condition: Stable Referrals: Nate Melo MD [Primary Care Provider] - 1-2 days Time of Disposition: 12:45
[2017-05-27 09:33] LABS: Basophils % (A) 1 %; Eosinophils # (A) 0.1 k/uL (0-0.7); Eosinophils % (A) 2 %; HCT 36.4 % (34.0-46.0); HGB 11.8 gm/dL (11.4-16.0); Lymphocytes # (A) 0.8 k/uL (1.0-4.8); Lymphocytes % (A) 9 %; MCH 26.6 pg (25.0-35.0); MCHC 32.3 g/dL (31.0-37.0); MCV 82.3 fL (80.0-100.0); Mean Platelet Volume 6.9; Monocytes # (A) 0.5 k/uL (0-1.0); Monocytes % (A) 6 %; Neutrophils # (A) 6.8 k/uL (1.3-7.7); Neutrophils % (A) 82 %; Platelet Count 225 k/uL (150-450); RBC 4.42 m/uL (3.80-5.40); RDW 15.6 % (11.5-15.5); WBC 8.3 k/uL (3.8-10.6)
[2017-05-27 09:45] LABS: Albumin 3.6 g/dL (3.5-5.0); Calcium 9.4 mg/dL (8.4-10.2); Potassium 3.7 mmol/L (3.5-5.1); Total Bilirubin 0.4 mg/dL (0.2-1.3); Total Protein 6.2 g/dL (6.3-8.2)
[2017-05-27 09:50] LABS: Prothrombin Time 9.8 sec (9.0-12.0)
[2017-05-27 10:24] LABS: Appearance,Urine Clear (Clear); Bacteria,Urine Rare /hpf; Bilirubin,Urine Negative (Negative); Blood,Urine Large (Negative); Color,Urine Yellow; Glucose,Urine (UA) Negative (Negative); Hyaline Casts,Urine 16 /lpf (0-2); Ketones,Urine Negative (Negative); Leukocyte Esterase,Urine Moderate (Negative); Mucus,Urine Many /hpf; Nitrite,Urine Negative (Negative); PH, Urine 5.5 (5.0-8.0); Protein,Urine Trace (Negative); RBC,Urine >182 /hpf (0-5); Specific Gravity,Urine 1.021 (1.001-1.035); Squamous Epithelial Cell,Urine 4 /hpf (0-4); Urobilinogen,Urine <2.0 mg/dL (<2.0); WBC,Urine 17 /hpf (0-5)
[2017-05-27] MEDS ORDERED: RX INFO: IV CONTRAST WAS GIVEN 1 EACH MISC MISCELLANE PRN (11:04)
--- NOTE | 2017-05-27 12:14 | CT ---
EXAMINATION TYPE: CT abdomen pelvis w con DATE OF EXAM: 05/27/2017 COMPARISON: 18 1417 HISTORY: Diarrhea, LLQ pain CT DLP: 1463 mGycm Automated exposure control for dose reduction was used. CONTRAST: CT scan of the abdomen pelvis is performed with IV Contrast, patient injected with 100 mL of Isovue 3 00. FINDINGS- LUNG BASES-subsegmental changes at both lung bases are suggestive of scar or atelectasis. Heart size is mildly prominent.. LIVER/GB-there are multiple hypodense lesions within the liver which are too small to characterize. T he largest seen near the dome of the liver left lobe measuring 1.2 cm and may contain some internal v ascularity.. PANCREAS- No gross abnormality is seen. SPLEEN- No gross abnormality is seen. Multiple small accessory spleen are noted. ADRENALS- No gross abnormality is seen. KIDNEYS/BLADDER-there is a heterogeneous mass involving the lower pole of the left kidney measuring 1 .5 x 1.4 cm. Measures 48 Hounsfield units. There within the mid posterior cortex of the left there is a 5 mm lesion too small to characterize bu t likely related to simple cyst.. BOWEL-there is diffuse colonic wall thickening with pericolonic inflammatory changes seen near the he patic flexure involving both the transverse colon and right colon. There are occasional diverticula t hroughout the colon. Colitis is favored over diverticulitis or neoplasm but follow-up to resolution i s recommended to exclude other etiologies. Shotty adenopathy in the region is seen. Therefore neoplas tic process not entirely excluded. A small hiatal hernia noted. LYMPH NODES- No greater than 1cm abdominal or pelvic lymph nodes are appreciated. OSSEOUS STRUCTURES-hypertrophic and degenerative changes of the spine are noted. Severe degenerative disc disease with vacuum disc are noted OTHER- aorta of normal caliber with mild atherosclerotic changes. No evidence of aneurysm. There is some atherosclerotic plaque near the origin of the SMA with approximately 40-50% reduction in diamete r near the origin best seen on coronal image 38 and 37. IMPRESSION- 1. Diffuse colonic wall thickening with the most marked findings involving the hepatic flexure and ri ght colon. Adjacent pericolonic inflammatory changes are noted as well as shotty adenopathy. Although there are occasional diverticula throughout the colon diffuse nature of the process favors colitis o carmelo diverticulitis. Follow-up to resolution to exclude underlying mass or mucosal lesion. 2. Heterogeneous mass lower pole left kidney measuring 1.5 x 1.4 cm for which MRI is recommended. Dif ferential diagnosis would include a malignant neoplasm kidney and angiomyolipoma. 3. Nonspecific hepatic lesions is also be assessed with MRI as discussed above.
[2017-05-27] MEDS ORDERED: LEVOFLOXACIN 500MG-D5W PMX 500 MG in DEXTROSE/WATER 1 100ML.BAG IVPB SCH (12:45)
[2017-05-27] MEDS ORDERED: HYDROcodone/APAP 5-325MG 1 EACH TAB PO PRN (12:45)
[2017-05-27] MEDS ORDERED: ACETAMINOPHEN TAB 325 MG TAB PO PRN (12:45)
[2017-05-27] MEDS ORDERED: metroNIDAZOLE-NS PMX 500 MG in SALINE 1 100ML.BAG IVPB STA (12:45)
[2017-05-27] MEDS ORDERED: ONDANSETRON 4 MG/2 ML VIAL IVP PRN (12:45)
[2017-05-27] MEDS ORDERED: NALOXONE 0.4 MG/ML 1 ML VIAL IV PRN (12:45)
[2017-05-27] MEDS ORDERED: LEVOFLOXACIN 500MG-D5W PMX 500 MG in DEXTROSE/WATER 1 100ML.BAG IVPB STA (12:45)
[2017-05-27] MEDS ORDERED: metroNIDAZOLE 500 MG TAB PO STA (14:43)
--- NOTE | 2017-05-27 14:44 | ED ---
Medical Decision Making - Medical Decision Making Patient was advised that she did not meet inpatient admission and would be placed in observation and insurance may not cover the admission. Patient states she does not want take this risk and feels that she is comfortable to follow-up outpatient. She was given a dose of Levaquin IV and will also be given dose of Flagyl by mouth prior to being discharged. She is advised to follow-up with family physician tomorrow and urologist. Patient states understanding and is in agreement. - Lab Data Result diagrams: 05/27/17 09:10 05/27/17 09:10 Lab Results 05/27/17 05/27/17 05/27/17 Range/Units 09:10 09:10 09:10 WBC 8.3 (3.8-10.6) k/uL RBC 4.42 (3.80-5.40) m/uL Hgb 11.8 (11.4-16.0) gm/dL Hct 36.4 (34.0-46.0) % MCV 82.3 (80.0-100.0) fL MCH 26.6 (25.0-35.0) pg MCHC 32.3 (31.0-37.0) g/dL RDW 15.6 H (11.5-15.5) % Plt Count 225 (150-450) k/uL Neutrophils % 82 % Lymphocytes % 9 % Monocytes % 6 % Eosinophils % 2 % Basophils % 1 % Neutrophils # 6.8 (1.3-7.7) k/uL Lymphocytes # 0.8 L (1.0-4.8) k/uL Monocytes # 0.5 (0-1.0) k/uL Eosinophils # 0.1 (0-0.7) k/uL Basophils # 0.0 (0-0.2) k/uL PT 9.8 (9.0-12.0) sec INR 1.0 (<1.2) APTT 22.0 (22.0-30.0) sec Sodium 142 (137-145) mmol/L Potassium 3.7 (3.5-5.1) mmol/L Chloride 107 (98-107) mmol/L Carbon Dioxide 25 (22-30) mmol/L Anion Gap 10 mmol/L BUN 20 H (7-17) mg/dL Creatinine 0.92 (0.52-1.04) mg/dL Est GFR (CKD-EPI)AfAm 72 (>60 ml/min/1.73 sqM) Est GFR (CKD-EPI)NonAf 63 (>60 ml/min/1.73 sqM) Glucose 104 H (74-99) mg/dL Calcium 9.4 (8.4-10.2) mg/dL Total Bilirubin 0.4 (0.2-1.3) mg/dL AST 21 (14-36) U/L ALT 28 (9-52) U/L Alkaline Phosphatase 90 (38-126) U/L Total Protein 6.2 L (6.3-8.2) g/dL Albumin 3.6 (3.5-5.0) g/dL Urine Color Urine Appearance (Clear) Urine pH (5.0-8.0) Ur Specific [place] (1.001-1.035) Urine Protein (Negative) Urine Glucose (UA) (Negative) Urine Ketones (Negative) Urine Blood (Negative) Urine Nitrite (Negative) Urine Bilirubin (Negative) Urine Urobilinogen (<2.0) mg/dL Ur Leukocyte Esterase (Negative) Urine RBC (0-5) /hpf Urine WBC (0-5) /hpf Ur Squamous Epith Cells (0-4) /hpf Urine Bacteria (None) /hpf Hyaline Casts (0-2) /lpf Urine Mucus (None) /hpf Stool Occult Blood (Negative) C. difficile (EIA) Intrp (Negative) 05/27/17 05/27/17 05/27/17 Range/Units 10:00 10:00 10:05 WBC (3.8-10.6) k/uL RBC (3.80-5.40) m/uL Hgb (11.4-16.0) gm/dL Hct (34.0-46.0) % MCV (80.0-100.0) fL MCH (25.0-35.0) pg MCHC (31.0-37.0) g/dL RDW (11.5-15.5) % Plt Count (150-450) k/uL Neutrophils % % Lymphocytes % % Monocytes % % Eosinophils % % Basophils % % Neutrophils # (1.3-7.7) k/uL Lymphocytes # (1.0-4.8) k/uL Monocytes # (0-1.0) k/uL Eosinophils # (0-0.7) k/uL Basophils # (0-0.2) k/uL PT (9.0-12.0) sec INR (<1.2) APTT (22.0-30.0) sec Sodium (137-145) mmol/L Potassium (3.5-5.1) mmol/L Chloride (98-107) mmol/L Carbon Dioxide (22-30) mmol/L Anion Gap mmol/L BUN (7-17) mg/dL Creatinine (0.52-1.04) mg/dL Est GFR (CKD-EPI)AfAm (>60 ml/min/1.73 sqM) Est GFR (CKD-EPI)NonAf (>60 ml/min/1.73 sqM) Glucose (74-99) mg/dL Calcium (8.4-10.2) mg/dL Total Bilirubin (0.2-1.3) mg/dL AST (14-36) U/L ALT (9-52) U/L Alkaline Phosphatase (38-126) U/L Total Protein (6.3-8.2) g/dL Albumin (3.5-5.0) g/dL Urine Color Yellow Urine Appearance Clear (Clear) Urine pH 5.5 (5.0-8.0) Ur Specific [place] 1.021 (1.001-1.035) Urine Protein Trace H (Negative) Urine Glucose (UA) Negative (Negative) Urine Ketones Negative (Negative) Urine Blood Large H (Negative) Urine Nitrite Negative (Negative) Urine Bilirubin Negative (Negative) Urine Urobilinogen <2.0 (<2.0) mg/dL Ur Leukocyte Esterase Moderate H (Negative) Urine RBC >182 H (0-5) /hpf Urine WBC 17 H (0-5) /hpf Ur Squamous Epith Cells 4 (0-4) /hpf Urine Bacteria Rare H (None) /hpf Hyaline Casts 16 H (0-2) /lpf Urine Mucus Many H (None) /hpf Stool Occult Blood Positive H (Negative) C. difficile (EIA) Intrp Negative (Negative) Disposition Clinical Impression: Diverticulitis, Kidney mass Disposition: HOME SELF-CARE Condition: Good Instructions: Diverticulitis (ED) Additional Instructions: Please use medication as discussed. Please follow-up with urologist/family doctor in the next 2 days. Please return to emergency room if the symptoms increase or worsen or for any other concerns. Prescriptions: Levofloxacin [Levaquin] 500 mg PO DAILY 6 Days tab Loperamide [Imodium] 2 mg PO DIRECTED #20 capsule metroNIDAZOLE [Flagyl] 500 mg PO TID #21 tab Referrals: Nate Melo MD [Primary Care Provider] - 1-2 days Time of Disposition: 14:42
[2017-05-27 14:54] VITALS: BP 140/87; PULSE 80; RESP 20; TEMP 98
[2017-05-27] MEDS ORDERED: metroNIDAZOLE-NS PMX 500 MG in SALINE 1 100ML.BAG IVPB SCH (16:00)
== END 2017-05-27 15:00 | disposition home or self-care (01) ==
LOC: EC 08:29
DX: K57.32 Diverticulitis of large intestine without perforation or abscess without bleeding (principal); N28.89 Other specified disorders of kidney and ureter; I10 Essential (primary) hypertension; G40.909 Epilepsy, unspecified, not intractable, without status epilepticus; Z86.73 Personal history of transient ischemic attack (TIA), and cerebral infarction without residual deficits; Z79.82 Long term (current) use of aspirin; Z79.899 Other long term (current) drug therapy; Z88.8 Allergy status to other drugs, medicaments and biological substances
CPT/HCPCS: 99284; 96365; 36415; 80053; 85025; 85610; 85730; 82272; 81001; 87324; 74177; J1956; Q9967

== ENCOUNTER 2017-05-30 10:12 | Inpatient (IN) | payer MEDICARE ==
[2017-05-30] MEDS ORDERED: SODIUM CHLORIDE 0.9% 1,000 ML IV STA ×2 (10:19)
--- NOTE | 2017-05-30 10:27 | ED ---
Abdominal Pain HPI - General Stated Complaint: Rectal bleeding,fever Time Seen by Provider: 05/30/17 10:12 Source: patient, family, EMS, RN notes reviewed, old records reviewed Mode of arrival: EMS - History of Present Illness Initial Comments: This is a 72-year-old female who presents with complaints of crampy abdominal pain with dark and bright red blood per rectum. She was brought in by EMS today. She was diagnosed with diverticulitis versus colitis 3 days ago in this emergency department she was offered admission but did not stay due to the observational status. She complains of left lower quadrant abdominal pain. She has a cough she was noted have a temperature of 100.2 per paramedics. She recently was on antibiotics about a month ago she had a tooth infection and was started on penicillin this was to clindamycin and ultimately switched to azithromycin which she did complete that. The CAT scan was performed 3 days ago showed evidence of colitis versus diverticulitis also a small left kidney mass. Patient admits to decreased oral intake does feel weak and lightheaded when she tries to walk. No overt chills or sweats reported this time. Patient was placed on Levaquin and Flagyl when she left the department 3 days ago and it is unclear whether it is related but apparently hasn't patient took a dose she had a seizure. She does have a known seizure disorder. Antibiotics were stopped. MD Complaint: abdominal pain, other - Related Data Home Medications Medication Instructions Recorded Confirmed Aspirin 325 mg PO DAILY 09/10/15 05/30/17 Colesevelam [Welchol] 1,875 mg PO AC-BRKFST 09/10/15 05/30/17 LORazepam [Ativan] 0.5 mg PO BID PRN 09/10/15 05/30/17 Levothyroxine Sodium [Synthroid] 50 mcg PO HS 09/10/15 05/30/17 Losartan Potassium 100 mg PO AC-BRKFST 09/10/15 05/30/17 OXcarbazepine [Trileptal] 300 mg PO HS 09/10/15 05/30/17 amLODIPine BESYLATE [Norvasc] 10 mg PO AC-SUPPER 09/10/15 05/30/17 Acetaminophen-Codeine 300-30mg 1 tab PO Q4-6H PRN 05/27/17 05/30/17 [Tylenol w/codeine #3] Colesevelam [Welchol] 1,250 mg PO AC-LUNCH 05/27/17 05/30/17 Multivitamins, Thera [Multivitamin 1 tab PO DAILY 05/27/17 05/30/17 (formulary)] Loperamide [Imodium] 2 - 4 mg PO DIRECTED PRN MDD 16 05/30/17 05/30/17 MG Previous Rx's Medication Instructions Recorded Levofloxacin [Levaquin] 500 mg PO DAILY 6 Days tab 05/27/17 metroNIDAZOLE [Flagyl] 500 mg PO TID #21 tab 05/27/17 Allergies Allergy/AdvReac Type Severity Reaction Status Date / Time nitroglycerin AdvReac Seizure Verified 05/27/17 10:12 with Patch Review of Systems ROS Statement: Those systems with pertinent positive or pertinent negative responses have been documented in the HPI. ROS Other: All systems not noted in ROS Statement are negative. 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 Past Anesthesia/Blood Transfusion Reactions: No Reported Reaction Past Psychological History: No Psychological Hx Reported Smoking Status: Never smoker Past Alcohol Use History: None Reported Past Drug Use History: None Reported - Past Family History Mother Family Medical History: Congestive Heart Failure (CHF), Dementia, Renal Disease Additional Family Medical History / Comment(s): in her 90s Father Family Medical History: Myocardial Infarction ([place]) General Exam - General Exam Comments Initial Comments: This is a well-developed well-nourished awake alert but lethargic appearing female General appearance: alert, in no apparent distress, lethargic Head exam: Present: atraumatic, normocephalic, normal inspection Eye exam: Present: normal appearance, PERRL, EOMI. Absent: scleral icterus, conjunctival injection, periorbital swelling ENT exam: Present: mucous membranes dry Neck exam: Present: normal inspection. Absent: tenderness, meningismus, lymphadenopathy Respiratory exam: Present: normal lung sounds bilaterally. Absent: respiratory distress, wheezes, rales, rhonchi, stridor Cardiovascular Exam: Present: regular rate, normal rhythm, normal heart sounds. Absent: systolic murmur, diastolic murmur, rubs, gallop, clicks GI/Abdominal exam: Present: soft, tenderness (Left lower quadrant tenderness palpation), normal bowel sounds. Absent: distended, guarding, rebound, rigid, bruit, pulsatile mass, hernia Rectal exam: Present: deferred Extremities exam: Present: normal inspection, full ROM, normal capillary refill. Absent: tenderness, pedal edema, joint swelling, calf tenderness Back exam: Present: normal inspection Neurological exam: Present: alert, oriented X3, CN II-XII intact Psychiatric exam: Present: normal affect, normal mood Skin exam: Present: warm, dry, intact, normal color. Absent: rash Course Vital Signs 05/30/17 05/30/17 10:30 12:04 Temperature 99.2 F Pulse Rate 76 78 Respiratory 16 16 Rate Blood Pressure 152/76 157/67 O2 Sat by Pulse 97 98 Oximetry Medical Decision Making - Medical Decision Making I did discuss findings with patient and her patient will require admission for failed outpatient treatment of colitis/possible diverticulitis. She did have a fever. She does demonstrate clinical dehydration. I did discuss case with Dr. Barrera who is covering for Dr. Melo - Lab Data Result diagrams: 05/30/17 10:29 05/30/17 10:29 Lab Results 05/30/17 05/30/17 05/30/17 Range/Units 10:29 10:29 10:29 WBC 4.4 (3.8-10.6) k/uL RBC 4.14 (3.80-5.40) m/uL Hgb 10.9 L (11.4-16.0) gm/dL Hct 33.9 L (34.0-46.0) % MCV 81.9 (80.0-100.0) fL MCH 26.4 (25.0-35.0) pg MCHC 32.2 (31.0-37.0) g/dL RDW 15.6 H (11.5-15.5) % Plt Count 202 (150-450) k/uL Neutrophils % 66 % Lymphocytes % 17 % Monocytes % 11 % Eosinophils % 3 % Basophils % 1 % Neutrophils # 2.9 (1.3-7.7) k/uL Lymphocytes # 0.8 L (1.0-4.8) k/uL Monocytes # 0.5 (0-1.0) k/uL Eosinophils # 0.1 (0-0.7) k/uL Basophils # 0.0 (0-0.2) k/uL PT 10.5 (9.0-12.0) sec INR 1.1 (<1.2) APTT 23.2 (22.0-30.0) sec Sodium 141 (137-145) mmol/L Potassium 3.1 L (3.5-5.1) mmol/L Chloride 108 H (98-107) mmol/L Carbon Dioxide 25 (22-30) mmol/L Anion Gap 8 mmol/L BUN 9 (7-17) mg/dL Creatinine 0.80 (0.52-1.04) mg/dL Est GFR (CKD-EPI)AfAm 85 (>60 ml/min/1.73 sqM) Est GFR (CKD-EPI)NonAf 74 (>60 ml/min/1.73 sqM) Glucose 97 (74-99) mg/dL Plasma Lactic Acid Dusty (0.7-2.0) mmol/L Calcium 8.9 (8.4-10.2) mg/dL Magnesium (1.6-2.3) mg/dL Total Bilirubin 0.3 (0.2-1.3) mg/dL AST 24 (14-36) U/L ALT 28 (9-52) U/L Alkaline Phosphatase 73 (38-126) U/L Total Protein 5.6 L (6.3-8.2) g/dL Albumin 3.1 L (3.5-5.0) g/dL Amylase 38 (30-110) U/L Lipase 76 (23-300) U/L Urine Color Urine Appearance (Clear) Urine pH (5.0-8.0) Ur Specific [place] (1.001-1.035) Urine Protein (Negative) Urine Glucose (UA) (Negative) Urine Ketones (Negative) Urine Blood (Negative) Urine Nitrite (Negative) Urine Bilirubin (Negative) Urine Urobilinogen (<2.0) mg/dL Ur Leukocyte Esterase (Negative) Urine WBC (0-5) /hpf Ur Squamous Epith Cells (0-4) /hpf Urine Mucus (None) /hpf Influenza Type A RNA (Not Detectd) Influenza Type B (PCR) (Not Detectd) Blood Type Blood Type Confirm Blood Type Recheck Antibody Screen Spec Expiration Date 05/30/17 05/30/17 05/30/17 Range/Units 10:29 10:29 10:29 WBC (3.8-10.6) k/uL RBC (3.80-5.40) m/uL Hgb (11.4-16.0) gm/dL Hct (34.0-46.0) % MCV (80.0-100.0) fL MCH (25.0-35.0) pg MCHC (31.0-37.0) g/dL RDW (11.5-15.5) % Plt Count (150-450) k/uL Neutrophils % % Lymphocytes % % Monocytes % % Eosinophils % % Basophils % % Neutrophils # (1.3-7.7) k/uL Lymphocytes # (1.0-4.8) k/uL Monocytes # (0-1.0) k/uL Eosinophils # (0-0.7) k/uL Basophils # (0-0.2) k/uL PT (9.0-12.0) sec INR (<1.2) APTT (22.0-30.0) sec Sodium (137-145) mmol/L Potassium (3.5-5.1) mmol/L Chloride (98-107) mmol/L Carbon Dioxide (22-30) mmol/L Anion Gap mmol/L BUN (7-17) mg/dL Creatinine (0.52-1.04) mg/dL Est GFR (CKD-EPI)AfAm (>60 ml/min/1.73 sqM) Est GFR (CKD-EPI)NonAf (>60 ml/min/1.73 sqM) Glucose (74-99) mg/dL Plasma Lactic Acid Dusty 0.7 (0.7-2.0) mmol/L Calcium (8.4-10.2) mg/dL Magnesium 1.8 (1.6-2.3) mg/dL Total Bilirubin (0.2-1.3) mg/dL AST (14-36) U/L ALT (9-52) U/L Alkaline Phosphatase (38-126) U/L Total Protein (6.3-8.2) g/dL Albumin (3.5-5.0) g/dL Amylase (30-110) U/L Lipase (23-300) U/L Urine Color Urine Appearance (Clear) Urine pH (5.0-8.0) Ur Specific [place] (1.001-1.035) Urine Protein (Negative) Urine Glucose (UA) (Negative) Urine Ketones (Negative) Urine Blood (Negative) Urine Nitrite (Negative) Urine Bilirubin (Negative) Urine Urobilinogen (<2.0) mg/dL Ur Leukocyte Esterase (Negative) Urine WBC (0-5) /hpf Ur Squamous Epith Cells (0-4) /hpf Urine Mucus (None) /hpf Influenza Type A RNA (Not Detectd) Influenza Type B (PCR) (Not Detectd) Blood Type A Negative Blood Type Confirm Blood Type Recheck CABO Indicated Antibody Screen NEGATIVE Spec Expiration Date 06/02/2017232805/30/17 05/30/17 05/30/17 Range/Units 10:44 11:44 12:34 WBC (3.8-10.6) k/uL RBC (3.80-5.40) m/uL Hgb (11.4-16.0) gm/dL Hct (34.0-46.0) % MCV (80.0-100.0) fL MCH (25.0-35.0) pg MCHC (31.0-37.0) g/dL RDW (11.5-15.5) % Plt Count (150-450) k/uL Neutrophils % % Lymphocytes % % Monocytes % % Eosinophils % % Basophils % % Neutrophils # (1.3-7.7) k/uL Lymphocytes # (1.0-4.8) k/uL Monocytes # (0-1.0) k/uL Eosinophils # (0-0.7) k/uL Basophils # (0-0.2) k/uL PT (9.0-12.0) sec INR (<1.2) APTT (22.0-30.0) sec Sodium (137-145) mmol/L Potassium (3.5-5.1) mmol/L Chloride (98-107) mmol/L Carbon Dioxide (22-30) mmol/L Anion Gap mmol/L BUN (7-17) mg/dL Creatinine (0.52-1.04) mg/dL Est GFR (CKD-EPI)AfAm (>60 ml/min/1.73 sqM) Est GFR (CKD-EPI)NonAf (>60 ml/min/1.73 sqM) Glucose (74-99) mg/dL Plasma Lactic Acid Dusty (0.7-2.0) mmol/L Calcium (8.4-10.2) mg/dL Magnesium (1.6-2.3) mg/dL Total Bilirubin (0.2-1.3) mg/dL AST (14-36) U/L ALT (9-52) U/L Alkaline Phosphatase (38-126) U/L Total Protein (6.3-8.2) g/dL Albumin (3.5-5.0) g/dL Amylase (30-110) U/L Lipase (23-300) U/L Urine Color Yellow Urine Appearance Clear (Clear) Urine pH 5.5 (5.0-8.0) Ur Specific [place] 1.009 (1.001-1.035) Urine Protein Negative (Negative) Urine Glucose (UA) Negative (Negative) Urine Ketones Negative (Negative) Urine Blood Negative (Negative) Urine Nitrite Negative (Negative) Urine Bilirubin Negative (Negative) Urine Urobilinogen <2.0 (<2.0) mg/dL Ur Leukocyte Esterase Small H (Negative) Urine WBC 5 (0-5) /hpf Ur Squamous Epith Cells 1 (0-4) /hpf Urine Mucus Rare H (None) /hpf Influenza Type A RNA Not Detected (Not Detectd) Influenza Type B (PCR) Not Detected (Not Detectd) Blood Type Blood Type Confirm A Negative Blood Type Recheck Antibody Screen Spec Expiration Date - Radiology Data Radiology results: report reviewed (I did review the imaging and report no acute findings), image reviewed Disposition Clinical Impression: Colitis, Dehydration, GI bleed, Failure of outpatient treatment, Abdominal pain , Febrile illness, acute, Hypokalemia Disposition: ADMITTED IP TO THIS HOSP Condition: Stable Referrals: Nate Melo MD [Primary Care Provider] - 1-2 days
[2017-05-30 10:55] LABS: Basophils % (A) 1 %; Eosinophils # (A) 0.1 k/uL (0-0.7); Eosinophils % (A) 3 %; HCT 33.9 % (34.0-46.0); HGB 10.9 gm/dL (11.4-16.0); Lymphocytes # (A) 0.8 k/uL (1.0-4.8); Lymphocytes % (A) 17 %; MCH 26.4 pg (25.0-35.0); MCHC 32.2 g/dL (31.0-37.0); MCV 81.9 fL (80.0-100.0); Monocytes # (A) 0.5 k/uL (0-1.0); Monocytes % (A) 11 %; Neutrophils # (A) 2.9 k/uL (1.3-7.7); Neutrophils % (A) 66 %; Platelet Count 202 k/uL (150-450); RBC 4.14 m/uL (3.80-5.40); RDW 15.6 % (11.5-15.5); WBC 4.4 k/uL (3.8-10.6)
[2017-05-30 11:01] LABS: Albumin 3.1 g/dL (3.5-5.0); Calcium 8.9 mg/dL (8.4-10.2); INR 1.1 (<1.2); Partial Thromboplastin Time 23.2 sec (22.0-30.0); Potassium 3.1 mmol/L (3.5-5.1); Prothrombin Time 10.5 sec (9.0-12.0); Total Bilirubin 0.3 mg/dL (0.2-1.3); Total Protein 5.6 g/dL (6.3-8.2)
--- NOTE | 2017-05-30 11:16 | XR ---
EXAMINATION TYPE: XR chest 2V DATE OF EXAM: 05/30/2017 COMPARISON: 08/18/2016 HISTORY: 73-year-old female with fever and abdominal pain TECHNIQUE: PA and lateral views FINDINGS: Heart upper limits of normal in size. Aorta and pulmonary vasculature within normal limits. Mild inte rstitial prominence is unchanged. No consolidation or pleural effusion. IMPRESSION: Chronic changes without acute cardiopulmonary process.
--- NOTE | 2017-05-30 11:17 | XR ---
EXAMINATION TYPE: XR KUB DATE OF EXAM: 05/30/2017 CLINICAL DATA: 72-year-old female abdominal pain, PHH COMPARISON: None FINDINGS: Lung bases are clear. No evidence for free intraperitoneal air. Scattered air within small bowel loops which are nondilated. Scattered air-fluid levels throughout th e colon. Phlebolith in the right in the pelvis. IMPRESSION: Scattered small bowel air without abnormal dilatation and air-fluid levels throughout the colon. Baylee elate for generalized ileus or enteritis. Overall nonobstructive bowel gas pattern. No free air.
[2017-05-30 12:45] LABS: Appearance,Urine Clear (Clear); Bilirubin,Urine Negative (Negative); Blood,Urine Negative (Negative); Color,Urine Yellow; Glucose,Urine (UA) Negative (Negative); Ketones,Urine Negative (Negative); Leukocyte Esterase,Urine Small (Negative); Mucus,Urine Rare /hpf; Nitrite,Urine Negative (Negative); PH, Urine 5.5 (5.0-8.0); Protein,Urine Negative (Negative); Specific Gravity,Urine 1.009 (1.001-1.035); Squamous Epithelial Cell,Urine 1 /hpf (0-4); Urobilinogen,Urine <2.0 mg/dL (<2.0); WBC,Urine 5 /hpf (0-5)
[2017-05-30] MEDS ORDERED: NALOXONE 0.4 MG/ML 1 ML VIAL IV PRN (13:11)
[2017-05-30] MEDS ORDERED: LORazepam 0.5 MG TAB PO PRN (13:14)
[2017-05-30] MEDS ORDERED: PIPERACILLIN-TAZOBACTAM 3.375 GM in DEXTROSE/WATER 1 50ML.BAG IVPB STA (13:15)
[2017-05-30] MEDS: 0.9% NACL WITH KCL 20 MEQ/L 1,000 ML IV SCH ×2 (14:32→22:33)
[2017-05-30 15:23] VITALS: BMI 28.6
[2017-05-30] MEDS ORDERED: amLODIPine 10 MG TAB PO SCH (17:30)
[2017-05-30] MEDS ORDERED: BENZOCAINE/MENTHOL LOZENG 1 EACH LOZENGE MUCOUS MEM PRN (17:46)
[2017-05-30] MEDS ORDERED: predniSONE 20 MG TAB PO STA (18:02)
--- NOTE | 2017-05-30 18:08 | P.HPIM ---
History of Present Illness Patient developed pleasant 72-year-old female came in with compensative for diarrhea multiple episodes has been going on for around 70 days. Patient was seen in ER recently was given a antibiotics levofloxacin and metronidazole was discharged home patient has taken 2 days of these antibiotics after which patient had symptoms consistent with TIA with tingling numbness and speech abnormality in the left side because of which she called her neurologist who asked her to discontinue the medication patient can you to have diarrhea. Patient does have history of ulcerative colitis has flareup once every year. Patient is not on any medications for ulcerative colitis. He is also complaining of sore throat patient does have some oral thrush secondary to the antibiotics that she received. Patient was started on Zosyn here there is a concern about seizures with the her episode of TIA because of which the the and medics were discontinued at that time. Patient had a CAT scan of the abdomen which did show diffuse colitis predominantly on the right side of the colon area I'll give her a dose of prednisone and gastroenterology will be consulted for further evaluation of colitis which can be ulcerative colitis exacerbation. Zosyn will be continued for now. Although my suspicion for diabetic colitis of infectious colitis is low. Patient has multiple colonoscopies in the past apparently. Patient is wishing to see her neurologist as an outpatient for her TIA like symptoms that happened a few days ago patient presently doesn't have any residual symptoms. Patient does have incidental finding of a possible renal mass which need to be further evaluated with MRI which can be done as an outpatient. Patient also comparing of sharp left lower quadrant abdominal pain Review of Systems REVIEW OF SYSTEMS: CONSTITUTIONAL: No fever, no malaise, no fatigue. HEENT: No recent visual problems or hearing problems. Denied any sore throat. CARDIOVASCULAR: No chest pain, orthopnea, PND, no palpitations, no syncope. PULMONARY: No shortness of breath, no cough, no hemoptysis. GASTROINTESTINAL: As mentioned in HPI NEUROLOGICAL: No headaches, no weakness, no numbness. HEMATOLOGICAL: Denies any bleeding or petechiae. GENITOURINARY: Denies any burning micturition, frequency, or urgency. MUSCULOSKELETAL/RHEUMATOLOGICAL: Denies any joint pain, swelling, or any muscle pain. ENDOCRINE: Denies any polyuria or polydipsia. The rest of the 14-point review of systems is negative. 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 Past Anesthesia/Blood Transfusion Reactions: No Reported Reaction Smoking Status: Never smoker - Past Family History Mother Family Medical History: Congestive Heart Failure (CHF), Dementia, Renal Disease Additional Family Medical History / Comment(s): in her 90s Father Family Medical History: Myocardial Infarction ([place]) Medications and Allergies Home Medications Medication Instructions Recorded Confirmed Type Aspirin 325 mg PO DAILY 09/10/15 05/30/17 History Colesevelam [Welchol] 1,875 mg PO AC-BRKFST 09/10/15 05/30/17 History LORazepam [Ativan] 0.5 mg PO BID PRN 09/10/15 05/30/17 History Levothyroxine Sodium [Synthroid] 50 mcg PO HS 09/10/15 05/30/17 History Losartan Potassium 100 mg PO AC-BRKFST 09/10/15 05/30/17 History OXcarbazepine [Trileptal] 300 mg PO HS 09/10/15 05/30/17 History amLODIPine BESYLATE [Norvasc] 10 mg PO AC-SUPPER 09/10/15 05/30/17 History Acetaminophen-Codeine 300-30mg 1 tab PO Q4-6H PRN 05/27/17 05/30/17 History [Tylenol w/codeine #3] Colesevelam [Welchol] 1,250 mg PO AC-LUNCH 05/27/17 05/30/17 History Levofloxacin [Levaquin] 500 mg PO DAILY 6 Days tab 05/27/17 05/30/17 Rx Multivitamins, Thera [Multivitamin 1 tab PO DAILY 05/27/17 05/30/17 History (formulary)] metroNIDAZOLE [Flagyl] 500 mg PO TID #21 tab 05/27/17 05/30/17 Rx Loperamide [Imodium] 2 - 4 mg PO DIRECTED PRN MDD 16 05/30/17 05/30/17 History MG Allergies Allergy/AdvReac Type Severity Reaction Status Date / Time ciprofloxacin [From Cipro] AdvReac Unknown Verified 05/30/17 15:56 metronidazole [From Flagyl] AdvReac Unknown Verified 05/30/17 15:56 nitroglycerin AdvReac Seizure Verified 05/27/17 10:12 with Patch Physical Exam Vitals: Vital Signs Temp Pulse Pulse Resp BP BP Pulse Ox 05/30/17 15:11 98.5 F 77 18 153/66 99 05/30/17 14:00 77 18 05/30/17 13:59 98.5 F 72 16 148/67 95 05/30/17 12:04 78 16 157/67 98 05/30/17 10:30 99.2 F 76 16 152/76 97 Intake and Output 05/30/17 05/30/17 05/30/17 06:59 14:59 22:59 Other: Voiding Method Toilet # Bowel Movements 1 Weight 83.007 kg 83.007 kg PHYSICAL EXAMINATION: GENERAL: The patient is alert and oriented x3, not in any acute distress. Well developed, well nourished. HEENT: Pupils are round and equally reacting to light. EOMI. No scleral icterus. No conjunctival pallor. Normocephalic, atraumatic. No pharyngeal erythema. No thyromegaly. CARDIOVASCULAR: S1 and S2 present. No murmurs, rubs, or gallops. PULMONARY: Chest is clear to auscultation, no wheezing or crackles. ABDOMEN: Soft, minimal left lower quadrant abdominal pain nondistended, normoactive bowel sounds. No palpable organomegaly. MUSCULOSKELETAL: No joint swelling or deformity. EXTREMITIES: No cyanosis, clubbing, or pedal edema. NEUROLOGICAL: Gross neurological examination did not reveal any focal deficits. SKIN: No rashes. Results CBC & Chem 7: 05/30/17 10:29 05/30/17 10:29 Labs: Abnormal Lab Results - Last 24 Hours (Table) 05/30/17 05/30/17 05/30/17 Range/Units 10:29 10:29 12:34 Hgb 10.9 L (11.4-16.0) gm/dL Hct 33.9 L (34.0-46.0) % RDW 15.6 H (11.5-15.5) % Lymphocytes # 0.8 L (1.0-4.8) k/uL Potassium 3.1 L (3.5-5.1) mmol/L Chloride 108 H (98-107) mmol/L Total Protein 5.6 L (6.3-8.2) g/dL Albumin 3.1 L (3.5-5.0) g/dL Ur Leukocyte Esterase Small H (Negative) Urine Mucus Rare H (None) /hpf Thrombosis Risk Factor Assmnt - Choose All That Apply Each Factor Represents 1 point: Obesity (BMI >25) Each Risk Factor Represents 2 Points: Age 61-74 years Thrombosis Risk Factor Assessment Total Risk Factor Score: 3 Thrombosis Risk Factor Assessment Level: Moderate Risk Assessment and Plan Plan: -Colitis: Possibility of her ulcerative colitis cannot be ruled out patient will be given a dose of steroid and patient will be continue on antibiotics. Patient will be continued on IV fluids -Hypokalemia secondary to diarrhea patient is on normal saline with potassium supplementation basic metabolic profile will be obtained tomorrow. -Oral thrush secondary to antibiotics we'll use nystatin swish and swallow. -ALLERGIC pharyngitis -TIA symptoms for which patient will be continued on aspirin and further evaluation and management as an outpatient by her neurologist patient doesn't have any sepsis symptoms here patient will be closely monitored for such symptoms. -Hypertension next and-history of seizures for which patient is on Trileptal which will be continued -Hypothyroidism continue with levothyroxine.
[2017-05-30] MEDS: NYSTATIN 100,000 UNIT/ML SUSP 500,000 UNIT/5 ML CUP PO SCH ×2 (18:51→21:09)
[2017-05-30] MEDS: LEVOTHYROXINE 50 MCG TAB PO SCH (21:03)
[2017-05-30] MEDS: OXcarbazepine 300 MG TAB PO SCH (21:03)
[2017-05-30] MEDS: PANTOPRAZOLE 40 MG/10 ML VIAL IV SCH (21:03)
[2017-05-30] MEDS: PIPERACILLIN-TAZOBACTAM 3.375 GM in DEXTROSE/WATER 1 50ML.BAG IVPB SCH (21:09)
[2017-05-31] MEDS: PIPERACILLIN-TAZOBACTAM 3.375 GM in DEXTROSE/WATER 1 50ML.BAG IVPB SCH ×3 (05:54→20:58)
[2017-05-31] MEDS: LOSARTAN 50 MG TAB PO SCH (08:05)
[2017-05-31] MEDS: NYSTATIN 100,000 UNIT/ML SUSP 500,000 UNIT/5 ML CUP PO SCH ×4 (08:05→20:59)
[2017-05-31] MEDS: PANTOPRAZOLE 40 MG/10 ML VIAL IV SCH ×2 (08:06→19:58)
[2017-05-31] MEDS: ASPIRIN 325 MG TAB PO SCH (08:07)
[2017-05-31] MEDS: COLESEVELAM 625 MG TAB PO SCH ×3 (08:07→11:21)
[2017-05-31] MEDS: MULTIVITAMINS, THERA 1 EACH TAB PO SCH (08:07)
[2017-05-31 11:54] LABS: Basophils % (A) 0 %; Calcium 8.8 mg/dL (8.4-10.2); Eosinophils % (A) 0 %; HCT 35.1 % (34.0-46.0); HGB 10.7 gm/dL (11.4-16.0); Hypochromasia Slight; Lymphocytes # (A) 0.7 k/uL (1.0-4.8); Lymphocytes % (A) 14 %; MCHC 30.6 g/dL (31.0-37.0); MCV 84.9 fL (80.0-100.0); Monocytes # (A) 0.3 k/uL (0-1.0); Monocytes % (A) 6 %; Neutrophils # (A) 3.8 k/uL (1.3-7.7); Neutrophils % (A) 77 %; Platelet Count 226 k/uL (150-450); Potassium 3.3 mmol/L (3.5-5.1); RBC 4.13 m/uL (3.80-5.40); RDW 15.5 % (11.5-15.5); WBC 4.9 k/uL (3.8-10.6)
[2017-05-31] MEDS ORDERED: Potassium Replacement Protocol 1 EACH MISC MISCELLANE PRN (12:40)
[2017-05-31] MEDS: POTASSIUM CHLORIDE ER 20 MEQ TAB.ER PO SCH ×2 (12:55→13:12)
--- NOTE | 2017-05-31 13:00 | CONS ---
CONSULTATION REASON FOR CONSULTATION: Abdominal pain and diarrhea. HISTORY OF PRESENT ILLNESS: The patient is a 72-year-old pleasant white female who was admitted to the hospital because of diarrhea for the last week 1 week duration. She was having bowel movements anywhere from 10-15 a day, which were loose to watery in consistency and saw small amount of blood in the stool. The patient went to the emergency room on Friday. She was given a prescription for Levaquin and Flagyl and was discharged home. She took the medications for 2 days, continued to have worsening symptoms and then she started having some tingling and numbness and speech; hence, came into the emergency room and subsequently admitted to the hospital for further evaluation. Yesterday she had about 15 bowel movements. No blood or mucus in the stool. She was started on Zosyn empirically. The patient was being treated for root canal by her dentist and was given prescription for penicillin, which she took for 3 days. Following that she had some tooth pain and the antibiotics were switched to clindamycin that she took for 2 days. Following that, the medications were switched to Zithromax. Her symptoms started around a week after taking the antibiotics. In the ER, she had a CT of the abdomen and pelvis done that showed diffuse colonic wall thickening, more marked in the hepatic flexure and right colon suspicious for colitis. PAST MEDICAL HISTORY: Significant for hypertension, seizure disorder, history of CVA in the past. PAST SURGERY HISTORY: Some kind of a brain surgery in 2000. MEDICATIONS: At home, aspirin, Ativan, Synthroid, Trileptal, losartan, Norvasc, Welchol, Levaquin, Flagyl, multivitamin, Lavelle, Imodium. ALLERGIES: To CIPRO, FLAGYL AND NITROGLYCERIN. SOCIAL HISTORY: No smoking or alcohol use. FAMILY HISTORY: Mother has congestive heart failure, chronic renal disease. Father had coronary artery disease and [place]. REVIEW OF SYSTEMS: CARDIOPULMONARY: No chest pain, shortness of breath. GENITOURINARY: No dysuria or hematuria. MUSCULOSKELETAL: Unremarkable. SKIN: Unremarkable. ENDOCRINE: Unremarkable. PSYCHIATRIC: Unremarkable. NEUROLOGY: She had some tingling, numbness, and slurred speech yesterday, which since resolved. HEMATOLOGY: Unremarkable. ENDOCRINE: Unremarkable. CONSTITUTIONAL: No recent weight loss. No fever, chills, night sweats. PHYSICAL EXAMINATION: She appears comfortable, no apparent distress. Vital signs are stable. Blood pressure is 133/66, pulse rate 77, temperature 98.5. HEENT examination unremarkable. Conjunctivae pink. Sclerae anicteric. Oral cavity no lesions. NECK: No jugular venous distention or lymph node enlargement. Chest is clear to auscultation. HEART: Regular rate and rhythm. Abdomen is soft, it was nontender, nondistended. Liver and spleen not palpable. Bowel sounds are positive. No organomegaly. EXTREMITIES: No pedal edema. SKIN: No rashes. NEUROLOGIC: Alert and oriented x3. No focal deficits. LAB: Done at the time of admission hospital WBC 4.4, hemoglobin 11.8, platelets are normal. Basic metabolic panel is within normal limits. BUN 20, creatinine 0.92. Amylase and lipase are normal. LFTs are normal. Urinalysis showed large amount of blood. C diff was negative. Influenza A and B were negative. IMPRESSION: This is a patient who presents to the hospital with a week history of lower abdominal cramping associated with severe diarrhea with bowel movements anywhere from 10-15 a day which are loose to watery in consistency. The symptoms started after antibiotic therapy for the treatment a week prior. She took penicillin followed by clindamycin and Zithromax for tooth pain. She was in the ER 3 days ago and had a CT of the abdomen and pelvis done that showed diffuse thickening of the colon, more in the right colon, with suspicion for infectious colitis, was prescribed Flagyl and Cipro and discharged home. However, because of persistent symptoms, she is admitted to the hospital. She still continues to have persistent diarrhea and antibiotics have been changed to Zosyn. Stool for C diff toxin, so far has been negative. At this time most likely we are dealing with infectious etiology. Doubt inflammatory bowel disease. Last colonoscopy 10 years ago according to the patient was within normal limits. RECOMMENDATIONS: 1. We will obtain stool cultures, ova and parasites. 2. Advance to full liquid diet. 3. Continue with empiric antibiotics. 4. No need for any endoscopy intervention at the present time. However, if she continues to have persistent diarrhea for the next 2 or 3 days, we will consider colonoscopy during this hospitalization. The plan was discussed with the patient as well as her who is at the bedside and agreeable to it. Thank you for this consultation. MMODL / IJN: [id number] /
[2017-05-31] MEDS: 0.9% NACL WITH KCL 20 MEQ/L 1,000 ML IV SCH ×2 (13:12→20:03)
--- NOTE | 2017-05-31 16:15 | P.PN ---
Subjective Patient is admitted for infectious colitis patient is feeling much better today diarrhea improved abdominal pain improved kind to monitor 1 more day possibly of discharge tomorrow patient is on IV fluids with potassium patient has low potassium Constitutional: Denied any fatigue denied any fever. Cardio vascular: denied any chest pain, palpitations Gastrointestinal as mentioned in HPI Pulmonary: Denied any shortness of breath cough Neurologic denied any new focal deficits Objective - Vital Signs Vital signs: Vital Signs Temp 97.0 F L 05/31/17 15:00 Pulse 66 05/31/17 15:00 Resp 24 05/31/17 15:00 BP 143/95 05/31/17 15:00 Pulse Ox 98 05/31/17 15:00 Intake & Output 05/30/17 05/31/17 05/31/17 18:59 06:59 18:59 Intake Total 300 930 Balance 300 930 Weight 83.007 kg 83.007 kg Intake: Intake, IV Titration 450 Amount 0.9% NaCl with KCl 20 Meq 400 /l 1,000 ml @ 100 mls/hr IV .Q10H LEONARDO Rx#: [id number] Piperacillin-Tazobactam 3 50 .375 gm In Dextrose/Water 1 50ml.bag @ 12.5 mls/hr IVPB Q8H LEONARDO Rx#: [id number] Oral 300 480 Other: Voiding Method Toilet Toilet Toilet # Voids 2 1 # Bowel Movements 1 2 - Exam PHYSICAL EXAMINATION: GENERAL: The patient is alert and oriented x3, not in any acute distress. Well developed, well nourished. HEENT: Pupils are round and equally reacting to light. EOMI. No scleral icterus. No conjunctival pallor. Normocephalic, atraumatic. No pharyngeal erythema. No thyromegaly. CARDIOVASCULAR: S1 and S2 present. No murmurs, rubs, or gallops. PULMONARY: Chest is clear to auscultation, no wheezing or crackles. ABDOMEN: Soft, minimal left lower quadrant abdominal pain nondistended, normoactive bowel sounds. No palpable organomegaly. MUSCULOSKELETAL: No joint swelling or deformity. EXTREMITIES: No cyanosis, clubbing, or pedal edema. NEUROLOGICAL: Gross neurological examination did not reveal any focal deficits. SKIN: No rashes. - Labs CBC & Chem 7: 05/31/17 11:03 04/07/18 11:03 Labs: Abnormal Lab Results - Last 24 Hours (Table) 05/31/17 05/31/17 Range/Units 11:03 11:03 Hgb 10.7 L (11.4-16.0) gm/dL MCHC 30.6 L (31.0-37.0) g/dL Lymphocytes # 0.7 L (1.0-4.8) k/uL Potassium 3.3 L (3.5-5.1) mmol/L Glucose 138 H (74-99) mg/dL Microbiology - Last 24 Hours (Table) 05/30/17 10:29 Blood Culture - Preliminary Blood No Growth after 24 hours Assessment and Plan Plan: -Colitis: Gastroenterology evaluated the patient and they believe patient has infectious colitis -Hypokalemia secondary to diarrhea patient is on normal saline with potassium supplementation basic metabolic profile will be obtained tomorrow. -Oral thrush secondary to antibiotics we'll use nystatin swish and swallow. -ALLERGIC pharyngitis -TIA symptoms for which patient will be continued on aspirin and further evaluation and management as an outpatient by her neurologist patient doesn't have any sepsis symptoms here patient will be closely monitored for such symptoms. -Hypertension next and-history of seizures for which patient is on Trileptal which will be continued -Hypothyroidism continue with levothyroxine.
[2017-05-31] MEDS: amLODIPine 5 MG TAB PO SCH (17:54)
[2017-05-31] MEDS: OXcarbazepine 300 MG TAB PO SCH (19:57)
[2017-05-31] MEDS: ACETAMINOPHEN TAB 325 MG TAB PO PRN (19:57)
[2017-05-31] MEDS: LEVOTHYROXINE 50 MCG TAB PO SCH (19:58)
[2017-06-01] MEDS: PIPERACILLIN-TAZOBACTAM 3.375 GM in DEXTROSE/WATER 1 50ML.BAG IVPB SCH ×3 (05:31→21:14)
[2017-06-01] MEDS: 0.9% NACL WITH KCL 20 MEQ/L 1,000 ML IV SCH (05:35)
[2017-06-01 07:48] LABS: Calcium 8.7 mg/dL (8.4-10.2); Potassium 3.7 mmol/L (3.5-5.1)
[2017-06-01] MEDS: PANTOPRAZOLE 40 MG/10 ML VIAL IV SCH ×2 (08:10→21:14)
[2017-06-01] MEDS: ASPIRIN 325 MG TAB PO SCH (08:10)
[2017-06-01] MEDS: LOSARTAN 50 MG TAB PO SCH (08:10)
[2017-06-01] MEDS: NYSTATIN 100,000 UNIT/ML SUSP 500,000 UNIT/5 ML CUP PO SCH ×4 (08:10→21:13)
[2017-06-01] MEDS: MULTIVITAMINS, THERA 1 EACH TAB PO SCH (08:10)
[2017-06-01] MEDS: COLESEVELAM 625 MG TAB PO SCH ×2 (08:11→13:56)
--- NOTE | 2017-06-01 11:58 | PN ---
PROGRESS NOTE The patient is a 72-year-old pleasant white female admitted to the hospital with severe diarrhea on and off for the last 1 week duration. She is having bowel movements anywhere from 10 to 12 a day, which are loose and watery in consistency. She was treated empirically with Cipro and Flagyl on outpatient basis and was discharged home and apparently did have a seizure 4 hours after starting the medications and hence it was discontinued. While in the hospital she has been on Zosyn. She still feels the same. No abdominal pain. No nausea, vomiting. No fever, chills, night sweats, but she had about 12 bowel movements all yesterday. No bleeding. PHYSICAL EXAMINATION: Appears comfortable, no apparent distress. Vital signs stable. Blood pressure is 143/75, temperature is 97, pulse rate 66. HEENT EXAMINATION: Unremarkable. Conjunctivae pink. Sclerae anicteric. Oral cavity no lesions. NECK: No JVD or lymph node enlargement. CHEST: Clear to auscultation. HEART: Regular rate and rhythm. ABDOMEN: Soft. Bowel sounds are positive. No organomegaly. EXTREMITIES: No pedal edema. SKIN: No rashes. NEUROLOGIC: Alert and oriented x3. No focal deficits. LABS: C diff is negative. Stool WBC, few leukocytes seen. Cultures are still pending. Blood cultures are negative. IMPRESSION: This lady presents to the hospital with diarrhea on and off for the last 1 week duration. She was treated for some dental work with multiple different antibiotics 2 weeks prior to that. She has been having severe diarrhea for the last 1 week, presently on Zosyn empirically. Stool cultures so far are pending. C diff toxin is negative. Abdominal CT scan done on May 27 showed diffuse colonic wall thickening involving the right colon, possibly infectious colitis. Doubt inflammatory bowel disease. RECOMMENDATIONS: 1. Continue with empiric antibiotics. 2. Await cultures. 3. Advance diet as tolerated. 4. No plans for colonoscopy at this time unless she continues to have persistent diarrhea. 5. I will continue to follow the patient closely during her hospital stay. Thank you for this consultation. ATIF / LINNEA: [id number] /
--- NOTE | 2017-06-01 13:07 | P.PN ---
Subjective Patient is admitted for infectious colitis patient is feeling much better today diarrhea improved abdominal pain improved kind to monitor 1 more day possibly of discharge tomorrow patient is on IV fluids with potassium patient has low potassium 06/01/2017 Abdominal pain improved, patient's diet is being advanced possibly of discharge tomorrow. Diarrhea improved Constitutional: Denied any fatigue denied any fever. Cardio vascular: denied any chest pain, palpitations Gastrointestinal as mentioned in HPI Pulmonary: Denied any shortness of breath cough Neurologic denied any new focal deficits Objective - Vital Signs Vital signs: Vital Signs Temp 98.7 F 06/01/17 07:00 Pulse 78 06/01/17 07:00 Resp 24 06/01/17 07:00 BP 147/69 06/01/17 07:00 Pulse Ox 98 06/01/17 07:00 Intake & Output 05/31/17 06/01/17 06/01/17 18:59 06:59 18:59 Intake Total 930 440 Balance 930 440 Intake: Intake, IV Titration 450 Amount 0.9% NaCl with KCl 20 Meq 400 /l 1,000 ml @ 100 mls/hr IV .Q10H LEONARDO Rx#: [id number] Piperacillin-Tazobactam 3 50 .375 gm In Dextrose/Water 1 50ml.bag @ 12.5 mls/hr IVPB Q8H LEONARDO Rx#: [id number] Oral 480 440 Other: Voiding Method Toilet # Voids 1 1 # Bowel Movements 2 - Exam PHYSICAL EXAMINATION: GENERAL: The patient is alert and oriented x3, not in any acute distress. Well developed, well nourished. HEENT: Pupils are round and equally reacting to light. EOMI. No scleral icterus. No conjunctival pallor. Normocephalic, atraumatic. No pharyngeal erythema. No thyromegaly. CARDIOVASCULAR: S1 and S2 present. No murmurs, rubs, or gallops. PULMONARY: Chest is clear to auscultation, no wheezing or crackles. ABDOMEN: Soft, minimal left lower quadrant abdominal pain nondistended, normoactive bowel sounds. No palpable organomegaly. MUSCULOSKELETAL: No joint swelling or deformity. EXTREMITIES: No cyanosis, clubbing, or pedal edema. NEUROLOGICAL: Gross neurological examination did not reveal any focal deficits. SKIN: No rashes. - Labs CBC & Chem 7: 05/31/17 11:03 06/01/17 07:12 Labs: Abnormal Lab Results - Last 24 Hours (Table) 06/01/17 Range/Units 07:12 Chloride 109 H (98-107) mmol/L BUN 4 L (7-17) mg/dL Microbiology - Last 24 Hours (Table) 05/30/17 10:29 Blood Culture - Preliminary Blood No Growth after 48 hours 05/31/17 11:50 Stool for WBCs - Final Stool 05/31/17 11:50 Stool Culture - Preliminary Stool Assessment and Plan Plan: -Colitis: Gastroenterology evaluated the patient and they believe patient has infectious colitis -Hypokalemia secondary to diarrhea improved now IV fluids and discontinued diet will be advanced -Oral thrush secondary to antibiotics we'll use nystatin swish and swallow. -ALLERGIC pharyngitis -TIA symptoms for which patient will be continued on aspirin and further evaluation and management as an outpatient by her neurologist patient doesn't have any sepsis symptoms here patient will be closely monitored for such symptoms. -Hypertension next and-history of seizures for which patient is on Trileptal which will be continued -Hypothyroidism continue with levothyroxine.
[2017-06-01] MEDS: amLODIPine 5 MG TAB PO SCH (17:42)
[2017-06-01] MEDS: LEVOTHYROXINE 50 MCG TAB PO SCH (21:13)
[2017-06-01] MEDS: OXcarbazepine 300 MG TAB PO SCH (21:13)
[2017-06-01] MEDS: ACETAMINOPHEN TAB 325 MG TAB PO PRN (21:21)
[2017-06-02] MEDS: PIPERACILLIN-TAZOBACTAM 3.375 GM in DEXTROSE/WATER 1 50ML.BAG IVPB SCH ×3 (06:02→22:13)
--- NOTE | 2017-06-02 08:19 | P.PN ---
Subjective Progress Note Date: 06/02/17 Principal diagnosis: Continuing care. Colitis. This is a continue prednisone a 70-year-old white female essentially admitted for presumed infectious colitis. The patient still has significant multiple episodes of diarrhea. Non-formed stool is noted. I do appreciate GI input. No significant fever or chills stated. She still has weakness. She seems to be emulating appropriately but feels as though she is somewhat unstable. Headache. She has normal history of seizure disorder, which is stable at this time. She states that she was given Levaquin and Flagyl when I was out of town last week and this causes some issues as far side effects. This stopped when she discontinued antibiotic Flagyl/Levaquin. Objective - Vital Signs Vital signs: Vital Signs Temp 98.4 F 06/02/17 05:50 Pulse 68 06/02/17 05:50 Resp 18 06/02/17 05:50 BP 113/60 06/02/17 05:50 Pulse Ox 98 06/02/17 05:50 Intake & Output 06/01/17 06/02/17 06/02/17 18:59 06:59 18:59 Intake Total 1430 Balance 1430 Weight 83.007 kg Intake: Intake, IV Titration 550 Amount 0.9% NaCl with KCl 20 Meq 500 /l 1,000 ml @ 100 mls/hr IV .Q10H LEONARDO Rx#: [id number] Piperacillin-Tazobactam 3 50 .375 gm In Dextrose/Water 1 50ml.bag @ 12.5 mls/hr IVPB Q8H LEONARDO Rx#: [id number] Oral 880 Other: Voiding Method Toilet Toilet # Voids 3 3 # Bowel Movements 5 - Constitutional General appearance: Present: average body habitus - EENT Eyes: Absent: abnormal pupil - Respiratory Respiratory: bilateral: CTA - Cardiovascular Rhythm: regular Heart sounds: normal: S1, S2 Abnormal Heart Sounds: Absent: S3 Gallop - Gastrointestinal General gastrointestinal: Present: tenderness - Neurologic Neurologic: Present: CNII-XII intact - Labs CBC & Chem 7: 05/31/17 11:03 06/01/17 07:12 Labs: Microbiology - Last 24 Hours (Table) 05/31/17 11:50 Stool Culture - Preliminary Stool Kait albicans 05/30/17 10:29 Blood Culture - Preliminary Blood No Growth after 48 hours Assessment and Plan (1) Abdominal pain Current Visit: Yes Status: Acute Code(s): R10.9 - UNSPECIFIED ABDOMINAL PAIN SNOMED Code(s): 67992758 (2) Colitis Current Visit: Yes Status: Acute Code(s): K52.9 - NONINFECTIVE GASTROENTERITIS AND COLITIS, UNSPECIFIED SNOMED Code(s): 45539081 (3) Dehydration Current Visit: Yes Status: Acute Code(s): E86.0 - DEHYDRATION SNOMED Code( s): 36914486 (4) Failure of outpatient treatment Current Visit: Yes Status: Acute Code(s): Z78.9 - OTHER SPECIFIED HEALTH STATUS SNOMED Code(s): 014796346 Plan: Continue current regimen or treatment. Check CMP and CBC in a.m. Continue full liquid diet. Question need for outpatient colonoscopy. See orders otherwise. Time with Patient: Less than 30
[2017-06-02] MEDS: COLESEVELAM 625 MG TAB PO SCH ×2 (08:31→12:05)
[2017-06-02] MEDS: LOSARTAN 50 MG TAB PO SCH (08:31)
[2017-06-02] MEDS: PANTOPRAZOLE 40 MG/10 ML VIAL IV SCH ×2 (08:31→22:24)
[2017-06-02] MEDS: ASPIRIN 325 MG TAB PO SCH (08:31)
[2017-06-02] MEDS: MULTIVITAMINS, THERA 1 EACH TAB PO SCH (08:31)
[2017-06-02] MEDS: NYSTATIN 100,000 UNIT/ML SUSP 500,000 UNIT/5 ML CUP PO SCH ×4 (08:31→22:25)
--- NOTE | 2017-06-02 14:45 | PN ---
PROGRESS NOTE DATE OF SERVICE: June 02, 2018 Patient is a 72-year-old pleasant white female admitted to the hospital with severe diarrhea for the last 1 week duration. She was started on empiric antibiotics. Stool studies so far have been negative. Cultures are still pending. Stool WBC was positive. The patient is on empiric antibiotics with Zosyn as she developed an allergic reaction with Cipro and Flagyl that was given to her on outpatient basis a week ago. She is doing much better today. She had three soft bowel movements. No further diarrhea. Abdominal pain has resolved. No nausea, vomiting. Tolerating diet well. PHYSICAL EXAMINATION: She appears comfortable. No apparent distress. VITAL SIGNS: Stable. Blood pressure is 129/59, pulse is 75, temperature 97.2. HEENT examination unremarkable. Conjunctivae pink. Sclerae anicteric. Oral cavity no lesions. Neck no jugular venous distention or lymph node enlargement. Chest was clear to auscultation. HEART: Regular rate and rhythm. ABDOMEN: Soft. Bowel sounds are positive. No organomegaly. Extremities no pedal edema. Skin no rashes. NEUROLOGIC: Alert and oriented x3. No focal deficits. LABS: Done today, CBC, CMP is within normal limits. IMPRESSION: Acute onset of abdominal pain and diarrhea for the last 1 week duration. Most likely infectious in etiology. The symptoms are improving on empiric antibiotics. Stool studies so far have been negative. RECOMMENDATIONS: 1. Continue antibiotics. 2. Advance diet as tolerated. 3. If she is doing well, she can be discharged home today or tomorrow with outpatient follow up in 2-3 weeks at which time we will discuss about a colonoscopy on an outpatient basis. 4. 5. Thank you for this consultation. MMODL / IJN: [id number] /
[2017-06-02 15:59] VITALS: RESP 16
[2017-06-02] MEDS: amLODIPine 5 MG TAB PO SCH (16:56)
[2017-06-02] MEDS: OXcarbazepine 300 MG TAB PO SCH (22:24)
[2017-06-02] MEDS: LEVOTHYROXINE 50 MCG TAB PO SCH (22:24)
[2017-06-03] MEDS: PIPERACILLIN-TAZOBACTAM 3.375 GM in DEXTROSE/WATER 1 50ML.BAG IVPB SCH (06:06)
[2017-06-03 07:56] VITALS: BP 143/70; PULSE 65; TEMP 96.7
[2017-06-03] MEDS: LOSARTAN 50 MG TAB PO SCH (07:58)
[2017-06-03] MEDS: NYSTATIN 100,000 UNIT/ML SUSP 500,000 UNIT/5 ML CUP PO SCH (07:58)
[2017-06-03] MEDS: PANTOPRAZOLE 40 MG/10 ML VIAL IV SCH (07:58)
[2017-06-03] MEDS: COLESEVELAM 625 MG TAB PO SCH (07:58)
[2017-06-03] MEDS: ASPIRIN 325 MG TAB PO SCH (07:59)
[2017-06-03] MEDS: MULTIVITAMINS, THERA 1 EACH TAB PO SCH (07:59)
--- NOTE | 2017-06-03 08:57 | P.DS ---
Providers Date of admission: 05/30/17 13:12 Attending physician: Nate Melo Consults: 05/30/17 17:47 Consult Physician Routine Consulting Provider: Kailash Tucker Consult Reason/Comments: diarrhea Do you want consulting provider notified?: Yes Primary care physician: Nate Melo - Discharge Diagnosis(es) (1) Abdominal pain Current Visit: Yes Status: Acute (2) Colitis Current Visit: Yes Status: Acute (3) Dehydration Current Visit: Yes Status: Acute (4) Failure of outpatient treatment Current Visit: Yes Status: Acute Hospital Course: This discharge summary 72-year-old white female essentially admitted for colitis. She did quite well after being placed on IV personal and tazobactam. She will be discharged on Levaquin and Flagyl and to follow-up in about 1 week. She is now tolerating diet and stools becoming better formed. We will discharged in stable condition. Patient Condition at Discharge: Stable Plan - Discharge Summary Discharge Rx Participant: No New Discharge Prescriptions: Continue Aspirin 325 mg PO DAILY OXcarbazepine [Trileptal] 300 mg PO HS Losartan Potassium 100 mg PO AC-BRKFST amLODIPine BESYLATE [Norvasc] 10 mg PO AC-SUPPER Colesevelam [Welchol] 1,875 mg PO AC-BRKFST Levothyroxine Sodium [Synthroid] 50 mcg PO HS LORazepam [Ativan] 0.5 mg PO BID PRN PRN Reason: Onset of Seizure Acetaminophen-Codeine 300-30mg [Tylenol w/codeine #3] 1 tab PO Q4-6H PRN PRN Reason: Pain Multivitamins, Thera [Multivitamin (formulary)] 1 tab PO DAILY Colesevelam [Welchol] 1,250 mg PO AC-LUNCH Levofloxacin [Levaquin] 500 mg PO DAILY 6 Days tab metroNIDAZOLE [Flagyl] 500 mg PO TID #21 tab Loperamide [Imodium] 2 - 4 mg PO DIRECTED PRN MDD 16 MG PRN Reason: Loose Stool Discharge Medication List Aspirin 325 mg PO DAILY 09/10/15 [History] Colesevelam [Welchol] 1,875 mg PO AC-BRKFST 09/10/15 [History] LORazepam [Ativan] 0.5 mg PO BID PRN 09/10/15 [History] Levothyroxine Sodium [Synthroid] 50 mcg PO HS 09/10/15 [History] Losartan Potassium 100 mg PO AC-BRKFST 09/10/15 [History] OXcarbazepine [Trileptal] 300 mg PO HS 09/10/15 [History] amLODIPine BESYLATE [Norvasc] 10 mg PO AC-SUPPER 09/10/15 [History] Acetaminophen-Codeine 300-30mg [Tylenol w/codeine #3] 1 tab PO Q4-6H PRN [History] Colesevelam [Welchol] 1,250 mg PO AC-LUNCH 05/27/17 [History] Levofloxacin [Levaquin] 500 mg PO DAILY 6 Days tab 05/27/17 [Rx] Multivitamins, Thera [Multivitamin (formulary)] 1 tab PO DAILY 05/27/17 [History ] metroNIDAZOLE [Flagyl] 500 mg PO TID #21 tab 05/27/17 [Rx] Loperamide [Imodium] 2 - 4 mg PO DIRECTED PRN MDD 16 MG 05/30/17 [History] Follow up Appointment(s)/Referral(s): Nate Melo MD [Primary Care Provider] - 1 Week Patient Instructions/Handouts: Diverticulitis (DC) Discharge Disposition: HOME SELF-CARE
[2017-06-03] MEDS: ACETAMINOPHEN TAB 325 MG TAB PO PRN (09:01)
[2017-06-03 09:32] LABS: HGB 10.9 gm/dL (11.4-16.0); Hypochromasia Slight; MCH 26.5 pg (25.0-35.0); MCHC 31.1 g/dL (31.0-37.0); MCV 85.2 fL (80.0-100.0); Mean Platelet Volume 6.9; Platelet Count 244 k/uL (150-450); RDW 15.9 % (11.5-15.5)
[2017-06-03 09:44] LABS: Albumin 3.2 g/dL (3.5-5.0); Calcium 9.1 mg/dL (8.4-10.2); Potassium 3.5 mmol/L (3.5-5.1); Total Bilirubin 0.3 mg/dL (0.2-1.3); Total Protein 5.7 g/dL (6.3-8.2)
== END 2017-06-03 09:36 | disposition home or self-care (01) | DRG 392 ==
LOC: EC 10:12 → 4MS4W 13:12
PROVIDERS: ADMIT Family Medicine; ATTEND Family Medicine
DX: A09 Infectious gastroenteritis and colitis, unspecified (principal); B37.0 Candidal stomatitis; G40.909 Epilepsy, unspecified, not intractable, without status epilepticus; E03.9 Hypothyroidism, unspecified; T36.95XA Adverse effect of unspecified systemic antibiotic, initial encounter; E86.0 Dehydration; E87.6 Hypokalemia; J02.9 Acute pharyngitis, unspecified; I10 Essential (primary) hypertension; Z79.890 Hormone replacement therapy; Z79.899 Other long term (current) drug therapy; Z88.1 Allergy status to other antibiotic agents; Z88.8 Allergy status to other drugs, medicaments and biological substances; Z79.82 Long term (current) use of aspirin; Z79.891 Long term (current) use of opiate analgesic; Z82.49 Family history of ischemic heart disease and other diseases of the circulatory system; Z86.73 Personal history of transient ischemic attack (TIA), and cerebral infarction without residual deficits; Z79.2 Long term (current) use of antibiotics
CPT/HCPCS: 36415; 71046; 74018; 80048; 80053; 81001; 82150; 83605; 83690; 83735; 84132; 85025; 85027; 85610; 85730; 86850; 86900; 86901; 87040; 87045; 87046; 87324; 87328; 87329; 87502; 89055; 96360; 96361; 99285

== ENCOUNTER 2017-08-06 06:40 | Day surgery (SDC) | payer MEDICARE ==
[2017-08-04 15:12] VITALS: BMI 27.7
[~2017-08-06 06:40] MED LIST: LACTATED RINGERS 1,000 ML IV SCH; LIDOCAINE 1% 20 ML VIAL (10MG/ML) FOR IV START INTRADERMA PRN; MIDAZOLAM 2 MG/2 ML VIAL IV PRN
[2017-08-06 07:12] VITALS: RESP 16; TEMP 97.7
[2017-08-06] MEDS ORDERED: LIDOCAINE 1% INJ 10MG/ML (20 ML MDV) ONE (07:43)
[2017-08-06] MEDS ORDERED: PROPOFOL 10 MG/ML 20 ML VIAL IV ONE (07:43)
[2017-08-06 08:47] VITALS: BP 151/83; PULSE 64
--- NOTE | 2017-08-06 10:14 | P.PCN ---
Date of Procedure: 08/06/17 Procedure(s) Performed: BRIEF HISTORY: Patient is a 72-year-old pleasant male, scheduled for an elective colonoscopy as a part of evaluation of intermittent diarrhea for the last few weeks duration. The patient was recently admitted to the clinic and hospital with severe diarrhea for 1 week duration. She was having 15-20 about daily. She was empirically treated with Flagyl and Cipro and his symptoms resolved. She does have long-standing history of ulcerative colitis diagnosed in her early 20s but she has been in remission all these years. Because of this sudden change in bowel habits she is scheduled for colonoscopy to evaluate further. PROCEDURE PERFORMED: Colonoscopy with biopsy. PREOPERATIVE DIAGNOSIS: Long-standing history of ulcerative colitis diagnosed in her early 20s, now with intermittent diarrhea. IV sedation per Anesthesia. PROCEDURE: After informed consent was obtained, the patient, was brought into the endoscopy unit. IV sedation was administered by Anesthesia under continuous monitoring. Digital rectal examination was normal. Initially the Olympus CF- 160 flexible video colonoscope was then inserted in the rectum, gradually advanced into the cecum without any difficulty. Careful examination was performed as the scope was gradually being withdrawn. Ileocecal valve and the appendiceal orifice were visualized and appeared normal. Prep was excellent. Mucosa of the cecum, appeared normal. There was segmental colitis with mild mucosal erythema, granularity, loss of mucosal folds noted in the transverse colon and biopsies were done from this area. The descending colon, sigmoid colon, and rectum appeared normal. Scattered sigmoid diverticulosis seen. Retroflexion was performed in the rectum and no lesions were seen. The patient tolerated the procedure well. IMPRESSION: Mild segmental colitis involving the transverse colon with patchy areas of erythema and loss of vascular markings consistent with mild active colitis status post multiple biopsies Rest of the colon appeared normal Scattered sigmoid diverticulosis RECOMMENDATIONS: Findings of this examination were discussed with the patient well as her family. She was advised to follow with the biopsy results..
== END 2017-08-06 09:00 | disposition home or self-care (01) ==
LOC: ORWHC2ENDO 06:40
PROVIDERS: ATTEND Internal Medicine Gastroenterology
DX: K51.90 Ulcerative colitis, unspecified, without complications (principal); K57.30 Diverticulosis of large intestine without perforation or abscess without bleeding; I10 Essential (primary) hypertension; E07.9 Disorder of thyroid, unspecified; R56.9 Unspecified convulsions; F41.9 Anxiety disorder, unspecified; Z79.82 Long term (current) use of aspirin; Z79.890 Hormone replacement therapy; Z79.899 Other long term (current) drug therapy; Z88.8 Allergy status to other drugs, medicaments and biological substances; Z88.1 Allergy status to other antibiotic agents
CPT/HCPCS: 88305; 45380; J2001; J2704

== ENCOUNTER → 2017-11-25 | Outpatient (CLI) | payer MEDICARE ==
[2017-11-25 11:12] LABS: Blood Urea Nitrogen 24 mg/dL (7-17)
--- NOTE | 2017-11-25 13:26 | CT ---
EXAMINATION TYPE: CT abdomen wo/w con DATE OF EXAM: 11/25/2017 COMPARISON: 05/27/2017 HISTORY: 72-year-old female follow-up neoplasm renal pelvis TECHNIQUE: Contiguous axial scanning of the abdomen before and after administration of 100 ml Omnipaq ue Isovue 300 IV contrast. Delayed images through the kidneys and coronal/sagittal reconstructions p erformed. CT DLP: 1250.3 mGycm Automated exposure control for dose reduction was used. FINDINGS: Heart normal size without pericardial effusion. Moderate arthroscopic calcifications throughout the v isualized aorta. Mild dependent atelectasis in the lower lungs with stable 6 mm nodularity posterior left base suggesting a benign etiology. No pleural effusion. Small hiatal hernia. Approximately 4 focal lesions within the liver, largest in the left hepatic lobe measuring 1.8 cm has some associated punctate calcifications. These lesions are unchanged for 6 months suggesting a benig n etiology. Probably cysts and/or hemangiomas. Portal venous system is patent. No biliary ductal dilatation. Adrenal glands, right kidney, spleen with a couple inferior splenules, and pancreas appear within nor mal limits. Numerous nonenlarged left-sided mesenteric lymph nodes are unchanged likely reactive/post inflammator y. 8 mm portacaval lymph node unchanged. No dilated small bowel, free fluid, or free air. Mild to moderate stool burden. The previous and colonic wall thickening has resolved. No pericolonic inflammatory change. Redemonstrated is heterogeneous hypodense lesion lower pole left kidney measuring 2.0 x 1.5 cm, uncha nged for 6 months. Pelvis not imaged. Bones: Degenerative changes mid to lower lumbar spine with grade 1 anterolisthesis at L4-L5. IMPRESSION: 1. STABLE 2.0 X 1.5 CM HETEROGENEOUS LESION LOWER POLE LEFT KIDNEY, SUSPECT THAT THIS REPRESENTS A CY STIC LESION WITH MULTIPLE SEPTATIONS. GIVEN 6 MONTHS OF STABILITY, CONSIDER CHARACTERIZING THIS A BOSNIAK 2F LESION AND PERFORMING AN ADDITIONAL SIX-MONTH FOLLOW-UP AFTER WHICH, ANNUAL SURVEILLANCE C AN BE PERFORMED. 2. APPROXIMATELY 4 LIVER LESIONS MEASURING UP TO 1.8 CM ARE STABLE FOR 6 MONTHS AND LIKELY REPRESENT A COMBINATION OF BENIGN CYSTS AND HEMANGIOMAS. THESE CAN ALSO BE REASSESSED AT FOLLOW-UP. 3. [id number] STOOL BURDEN WITH INTERVAL RESOLUTION OF THE PREVIOUS COLITIS.
== END | disposition home or self-care (01) ==
LOC: RADCTMAIN 10:29
PROVIDERS: ATTEND Urology
DX: D41.12 Neoplasm of uncertain behavior of left renal pelvis (principal); N28.9 Disorder of kidney and ureter, unspecified; K76.9 Liver disease, unspecified
CPT/HCPCS: 82565; 84520; 74170; 36415; Q9967

== ENCOUNTER → 2018-03-05 | Outpatient (CLI) | payer MEDICARE ==
--- NOTE | 2018-03-05 11:23 | BD ---
EXAMINATION TYPE: Axial Bone Density DATE OF EXAM: 03/05/2018 COMPARISON: 05.23.2004 DEXA bone scan report. CLINICAL HISTORY: 72 YR OLD FEMALE....ICD-10 CODE: Z78.0 POST MENOPAUSAL Height: 63.5 Weight: 188 FRAX RISK QUESTIONS: Family History (Parent hip fracture): YES RISK FACTORS HISTORY OF: Family History of Osteoporosis: YES, HER MOTHER, WITH HIP FX Diet low in dairy products/other sources of calcium: YES, VERY Postmenopausal woman: TOTAL HYST AT 46 YRS OLD Take estrogen and/or progesterone medications: HORMONES FOR ABOUT 20 YRS, IN THE PAST MEDICATIONS: Prednisone or other steroids: ASTHMA INHALER PRN Thyroid Medications: YES, GENERIC SYNTHROID, FOR ABOUT5 YRS Additional Medications: BP MEDS, SEIZURE MEDS AND ANTIDEPRESSANTS, CENTRUM SILVER, CHOLESTEROL MEDS.. WELCO Additional History: SEIZURES, HYPERTENSION, CHOLESTEROL EXAM MEASUREMENTS: Bone mineral densitometry was performed using the [employer] System. Bone mineral density as measured about the Lumbar spine is: ----- L1-L4(G/cm2): 1.036 T Score Values are as follows: ----- L1: -1.1 ----- L2: -2.2 ----- L3: -0.4 ----- L4: -1.3 ----- L1-L4: -1.2 Bone mineral density has: Increased 1.4% since study of: 05.23.2004 Bone mineral density about the R hip (g/cm2): 0.928 Bone mineral density about the L hip (g/cm2): 0.871 T Score values are as follows: -----R Neck: -0.3 -----L Neck: -1.4 -----R Total: -0.6 -----L Total: -1.1 Bone mineral density has: Decreased -11.7% since study of: 05.23.2004 FRAX%s: THERE IS A 15.3% CHANCE FOR A MAJOR OSTEOPOROTIC FX AND A 5.0% FOR HIP.....PROBABILITY OF F X IN 10 YRS TIME IMPRESSION: Osteopenia (T Score between -2.5 and -1) in low back and both hips is now present. There is slightly increased risk of fracture and the patient may be considered for treatment. Re-Screen 2-5 years. NOTE: T-SCORE=SD OF THE YOUNG ADULT MEAN.
--- NOTE | 2018-03-08 14:01 | MM ---
Reason for exam: screening (asymptomatic). Last mammogram was performed 3 years and 2 months ago. History: Patient is postmenopausal and had first child at age 36. Took progesterone for 20 years. MG 3D Screening Mammo W/Cad Bilateral CC and MLO view(s) were taken. Prior study comparison: January 13, 2015, bilateral MG screening mammo w CAD. October 23, 2012, bilateral digital screening mammo w/CAD. The breast tissue is heterogeneously dense. This may lower the sensitivity of mammography. There are benign-appearing bilateral breast calcifications. No suspicious abnormality. No significant new finding since 2014. ASSESSMENT: Benign, BI-RAD 2 RECOMMENDATION: Routine screening mammogram of both breasts in 1 year.
== END | disposition home or self-care (01) ==
LOC: RADMAMWWP 07:43
PROVIDERS: ATTEND Family Medicine
DX: Z12.31 Encounter for screening mammogram for malignant neoplasm of breast (principal); M85.88 Other specified disorders of bone density and structure, other site; Z78.0 Asymptomatic menopausal state
CPT/HCPCS: 77063; 77067; 77080

== ENCOUNTER → 2018-06-02 | Outpatient (CLI) | payer MEDICARE ==
--- NOTE | 2018-06-02 15:02 | US ---
EXAMINATION TYPE: US kidneys/renal and bladder DATE OF EXAM: 06/02/2018 COMPARISON: NONE CLINICAL HISTORY: D41.02 L RENAL MASS. EXAM MEASUREMENTS: Right Kidney: 10.2 x 4.5 x 4.4 cm Left Kidney: 10.6 x 4.7 x 5.0 cm Right Kidney: No hydronephrosis or masses seen Left Kidney: echogenic mass measuring 1.0 x 0.6 x 0.7cm Bladder: wnl Bilateral Jets seen: Yes There is no evidence for hydronephrosis at this point in time. No nephrolithiasis is seen. The urin chris bladder is anechoic. Bilateral ureteral jets are seen. 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
== END | disposition home or self-care (01) ==
LOC: RADUSWWP 14:07
PROVIDERS: ATTEND Urology
DX: D41.02 Neoplasm of uncertain behavior of left kidney (principal); Z88.1 Allergy status to other antibiotic agents; Z88.8 Allergy status to other drugs, medicaments and biological substances
CPT/HCPCS: 76770

== ENCOUNTER 2018-08-10 20:50 | Observation (INO) | payer MEDICARE ==
--- NOTE | 2018-08-10 21:16 | ED ---
Chest Pain HPI - General Chief Complaint: Chest Pain Stated Complaint: chest pain Time Seen by Provider: 08/10/18 21:13 Source: patient, EMS Mode of arrival: EMS Limitations: no limitations - History of Present Illness Initial Comments: This patient is 73-year-old woman presenting to be evaluated for substernal chest pain that developed at approximately 8 PM tonight as she was having a bowel movement. The pain was an aching, mild, and did radiate to the right side of her jaw. The patient states that she also was feeling "clammy," though apparently had denied diaphoresis in the triage area. The patient states the symptoms have completely resolved. She had not noted worsening or relieving factors at the time. MD Complaint: chest pain Onset/Timin -: hour(s) Onset: other Pain Location: substernal Pain Radiation: jaw/teeth Severity: mild Quality: aching Consistency: now resolved Improves With: nothing Worsens With: nothing Anginal Symptoms: diaphoresis Treatments Prior to Arrival: none - Related Data Home Medications Medication Instructions Recorded Confirmed Aspirin 325 mg PO DAILY 09/10/15 08/10/18 LORazepam [Ativan] 0.5 mg PO BID PRN 09/10/15 08/10/18 Levothyroxine Sodium [Synthroid] 75 mcg PO QAM 09/10/15 08/10/18 Losartan Potassium 100 mg PO AC-BRKFST 09/10/15 08/10/18 OXcarbazepine [Trileptal] 300 mg PO HS 09/10/15 08/10/18 amLODIPine BESYLATE [Norvasc] 10 mg PO AC-SUPPER 09/10/15 08/10/18 Colesevelam [Welchol] 1,250 mg PO BID 05/27/17 08/10/18 Multivitamins, Thera [Multivitamin 1 tab PO DAILY 05/27/17 08/10/18 (formulary)] Allergies Allergy/AdvReac Type Severity Reaction Status Date / Time azithromycin Allergy Unknown Verified 08/10/18 21:43 carvedilol Allergy Unknown Verified 08/10/18 21:43 clindamycin Allergy Unknown Verified 08/10/18 21:43 diltiazem Allergy Unknown Verified 08/10/18 21:43 hydrochlorothiazide Allergy Unknown Verified 08/10/18 21:43 iron Allergy Unknown Verified 08/10/18 21:43 methylprednisolone Allergy Unknown Verified 08/10/18 21:43 [From Medrol] omega-3 acid ethyl esters Allergy Unknown Verified 08/10/18 21:43 Penicillins Allergy Unknown Verified 08/10/18 21:43 ciprofloxacin [From Cipro] AdvReac SEIZURE Verified 08/10/18 21:43 LIKE ACTIVITY" metronidazole [From Flagyl] AdvReac SEIZURE Verified 08/10/18 21:43 LIKE ACTIVITY nitroglycerin AdvReac Seizure Verified 08/10/18 21:43 with Patch Review of Systems ROS Statement: Those systems with pertinent positive or pertinent negative responses have been documented in the HPI. ROS Other: All systems not noted in ROS Statement are negative. Constitutional: Denies: fever, chills Respiratory: Denies: cough, dyspnea Cardiovascular: Reports: chest pain. Denies: palpitations, orthopnea, edema, syncope Gastrointestinal: Denies: abdominal pain, nausea, vomiting, diarrhea, constipation Genitourinary: Denies: dysuria, hematuria Musculoskeletal: Denies: back pain Skin: Denies: rash Neurological: Denies: headache, weakness, numbness EKG Findings - EKG Results: EKG: interpreted by [facility], sinus rhythm (Rate 79 bpm), normal axis, normal QRS - Blocks, [place], Hypertrophy, ST Abn: Repolarization changes or abnormalities: nonspecific abnormality, ST segment, and/or T wave 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 Past Anesthesia/Blood Transfusion Reactions: No Reported Reaction Past Psychological History: No Psychological Hx Reported Smoking Status: Never smoker Past Alcohol Use History: None Reported Past Drug Use History: None Reported - Past Family History Mother Family Medical History: Congestive Heart Failure (CHF), Dementia, Renal Disease Additional Family Medical History / Comment(s): in her 90s Father Family Medical History: Myocardial Infarction ([place]) General Exam Limitations: no limitations General appearance: alert, in no apparent distress Head exam: Present: atraumatic, normocephalic Eye exam: Present: normal appearance. Absent: scleral icterus, conjunctival injection ENT exam: Present: normal oropharynx Neck exam: Present: normal inspection Respiratory exam: Present: normal lung sounds bilaterally. Absent: respiratory distress, wheezes, rales, rhonchi, stridor Cardiovascular Exam: Present: regular rate, normal rhythm, normal heart sounds. Absent: systolic murmur, diastolic murmur, rubs, gallop GI/Abdominal exam: Present: soft. Absent: distended, tenderness, guarding, rebound, rigid, mass Extremities exam: Present: normal inspection, normal capillary refill. Absent: pedal edema, calf tenderness Back exam: Present: normal inspection. Absent: CVA tenderness (R), CVA tenderness (L) Neurological exam: Present: alert Skin exam: Present: warm, dry, intact, normal color. 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
[2018-08-10 21:38] LABS: ALT 24 U/L (9-52); AST 30 U/L (14-36); African American GFR (CKD) >90 (>60 ml/min/1.73 sqM); Albumin 4.2 g/dL (3.5-5.0); Alkaline Phosphatase 105 U/L (38-126); Amylase 65 U/L (30-110); Anion Gap 8 mmol/L; Blood Urea Nitrogen 19 mg/dL (7-17); Calcium 9.6 mg/dL (8.4-10.2); Carbon Dioxide 22 mmol/L (22-30); Chloride 107 mmol/L (98-107); Glucose 102 mg/dL (74-99); Lipase 200 U/L (23-300); Sodium 137 mmol/L (137-145); Total Bilirubin 0.3 mg/dL (0.2-1.3); Total Protein 7.1 g/dL (6.3-8.2)
[2018-08-10 21:39] LABS: Basophils # (A) 0.1 k/uL (0-0.2); Basophils % (A) 1 %; Eosinophils # (A) 0.1 k/uL (0-0.7); Eosinophils % (A) 3 %; HCT 39.1 % (34.0-46.0); HGB 12.9 gm/dL (11.4-16.0); Lymphocytes # (A) 1.3 k/uL (1.0-4.8); Lymphocytes % (A) 24 %; MCH 28.6 pg (25.0-35.0); MCV 86.5 fL (80.0-100.0); Mean Platelet Volume 6.8; Monocytes # (A) 0.4 k/uL (0-1.0); Monocytes % (A) 7 %; Neutrophils # (A) 3.2 k/uL (1.3-7.7); Neutrophils % (A) 61 %; Platelet Count 238 k/uL (150-450); RBC 4.52 m/uL (3.80-5.40); RDW 14.5 % (11.5-15.5); WBC 5.2 k/uL (3.8-10.6)
--- NOTE | 2018-08-10 21:49 | XR ---
EXAMINATION TYPE: XR chest 1V portable DATE OF EXAM: 08/10/2018 COMPARISON: 05/30/2017 HISTORY: Chest pain TECHNIQUE: Single frontal view of the chest is obtained. FINDINGS: Heart and mediastinum are normal. Lungs are clear. Diaphragm is normal. There are chest le ads. Bony thorax is intact. IMPRESSION: Normal chest. No change.
[2018-08-10 21:56] LABS: INR 0.9 (<1.2); Partial Thromboplastin Time 23.6 sec (22.0-30.0); Prothrombin Time 9.6 sec (9.0-12.0)
[2018-08-10 22:05] LABS: D-Dimer >34.11 mg/L FEU (<0.60)
--- NOTE | 2018-08-10 23:24 | CT ---
EXAM: CT Angiography Chest With Intravenous Contrast CLINICAL HISTORY: ITS.REASON CT Reason: Pain TECHNIQUE: Axial computed tomographic angiography images of the chest with intravenous contrast using pulmonary embolism protocol. This CT exam was performed using one or more of the following dose reduction techniques: automated exposure control, adjustment of the mA and/or kV according to patient size, and/or use of iterative reconstruction technique. MIP reconstructed images were created and reviewed. COMPARISON: No relevant prior studies available. FINDINGS: Pulmonary arteries: Unremarkable. No pulmonary embolism. Aorta: No suspicious findings. No thoracic aortic aneurysm. Lungs: Unremarkable. No mass. No consolidation. Pleural space: Unremarkable. No significant effusion. No pneumothorax. Heart: Unremarkable. No cardiomegaly. No significant pericardial effusion. No evidence of RV dysfunction. Bones/joints: No acute fracture. No dislocation. Soft tissues: Unremarkable. Lymph nodes: Unremarkable. No enlarged lymph nodes. IMPRESSION: Normal chest CTA. No pulmonary embolism.
[2018-08-10] MEDS ORDERED: LOSARTAN 50 MG TAB PO STA (23:38)
[2018-08-10] MEDS ORDERED: LORazepam 1 MG TAB PO STA (23:38)
[2018-08-10] MEDS ORDERED: NITROGLYCERIN SL TABS 0.4 MG TAB SUBLINGUAL PRN (23:39)
[2018-08-10] MEDS ORDERED: SODIUM CHLORIDE 0.9% 1,000 ML IV SCH (23:45)
[2018-08-10] MEDS ORDERED: LORazepam 0.5 MG TAB PO PRN (23:47)
[2018-08-11] MEDS: ENOXAPARIN 80 MG/0.8 ML SYRINGE SQ SCH ×2 (00:02→11:57)
--- NOTE | 2018-08-11 01:07 | US ---
EXAM: US Duplex Bilateral Lower Extremity Veins CLINICAL HISTORY: ITS.REASON US Reason: positive d-dimer TECHNIQUE: Real-time duplex ultrasound scan of the bilateral lower extremity veins integrating B-mode two-dimensional vascular structure, Doppler spectral analysis, color flow Doppler imaging and compression. COMPARISON: No relevant prior studies available. FINDINGS: Right deep veins: Unremarkable. No DVT in the right common femoral, femoral, proximal deep femoral or popliteal veins. The veins demonstrate normal color flow, are normally compressible, with normal phasic flow and/or augmentation response. Right superficial veins: Unremarkable. No thrombus in the visualized right great saphenous vein. Left deep veins: Unremarkable. No DVT in the left common femoral, femoral, proximal deep femoral or popliteal veins. The veins demonstrate normal color flow, are normally compressible, with normal phasic flow and/or augmentation response. Left superficial veins: Unremarkable. No thrombus in the visualized left great saphenous vein. Soft tissues: No suspicious findings. No popliteal cyst. IMPRESSION: Normal bilateral lower extremity duplex venous ultrasound.
[2018-08-11 01:36] LABS: Cholesterol 176 mg/dL (<200); HDL Cholesterol 36 mg/dL (40-60); LDL Cholesterol,Calculated 101 mg/dL (0-99); Triglycerides 193 mg/dL (<150)
[2018-08-11 05:16] VITALS: RESP 16
[2018-08-11] MEDS ORDERED: LEVOTHYROXINE 50 MCG TAB PO SCH (06:30)
[2018-08-11] MEDS ORDERED: LOSARTAN 50 MG TAB PO SCH (07:30)
[2018-08-11] MEDS ORDERED: ASPIRIN 325 MG TAB PO SCH (09:00)
[2018-08-11] MEDS ORDERED: MULTIVITAMINS, THERA 1 EACH TAB PO SCH (09:00)
[2018-08-11] MEDS ORDERED: COLESEVELAM 625 MG TAB PO SCH (09:00)
[2018-08-11] MEDS ORDERED: ATORVASTATIN 40 MG TAB PO SCH (10:15)
--- NOTE | 2018-08-11 10:18 | P.CRDCN ---
History of Present Illness History of present illness: This is a pleasant [age] female past medical history significant for hypertension, seizure disorder, hypothyroidism, TIA in the past and peripheral vascular disease with mild to moderate carotid stenosis. She follows in the office with Dr. Ward. She denies prior history of coronary artery disease. We have been asked to see her in consultation secondary to chest discomfort. She describes a sharp chest pain in the mid-sternal region while having a simple bowel movement, no straining. The discomfort radiated to right jaw and was constant for 5 minutes. Ultimately subsided when she sat down on the couch. EMS was called while in route to the hospital she had another episode of chest discomfort that lasted for a few minutes and went away on its own. She also describes that she had a similar episode while walking Friday, which she does daily, the discomfort resolved when she sat down and rested. This was the first time this has happened while walking. She is seen and examined resting comfortably in the room with her at the bedside currently chest pain-fr ee. EKG reveals sinus mechanism nonspecific T-wave flattening noted in the inferior lead. No acute ST or T-wave abnormalities. Chest x-ray is negative for an acute cardiopulmonary process. CT chest is negative for pulmonary embolism. Bilateral venous Doppler negative for lower extremity DVT. Laboratory data reviewed, WBC 5.2, hemoglobin 12.9, platelets 238, d-dimer greater than 34, sodium 137, potassium 4.0, creatinine 0.64, magnesium 2.0, cardiac enzymes negative 3, LDL 101, HDL 36 and triglycerides 193. Current cardiac medications include aspirin 325 mg daily, losartan 100 mg daily, amlodipine 10 mg daily. At the time of my exam: CONSTITUTIONAL: Denies fever. Denies chills. EYES: Denies blurred vision. Denies vision changes. Denies eye pain. EARS, NOSE, MOUTH & THROAT: Denies headache. Denies sore throat. Denies ear pain. CARDIOVASCULAR: Denies chest pain. Denies shortness of breath. Denies orthopnea. Denies PND. Denies palpitations. RESPIRATORY: Denies cough. GASTROINTESTINAL: Denies abdominal pain. Denies diarrhea. Denies constipation. Denies nausea. Denies vomiting. MUSCULOSKELETAL: Denies myalgias. INTEGUMENTARY: Denies pruitis. Denies rash. NEUROLOGIC: Denies numbness. Denies tingling. Denies weakness. PSYCHIATRIC: Denies anxiety. Denies depression. ENDOCRINE: Denies fatigue. Denies weight change. Denies polydipsia. Denies polyurina. GENITOURINARY: Denies burning, hematuria or urgency with micturation. HEMATOLOGIC: Denies history of anemia. Denies bleeding. Blood pressure 150/83 heart rate 70 afebrile maintaining oxygen saturation on room air GENERAL: This is a 73-year-old female in no apparent distress at the time of my examination. HEENT: Head is atraumatic, normocephalic. Pupils are equal, round. Sclerae anicteric. Conjunctivae are clear. Mucous membranes of the mouth are moist. Neck is supple. There is no jugular venous distention. No carotid bruit is heard. LUNGS: Clear to auscultation no wheezes, rales or rhonchi. No chest wall tenderness is noted on palpation or with deep breathing. HEART: Regular rate and rhythm without murmurs, rubs or gallops. S1 and S2 heard. ABDOMEN: Soft, nontender. Bowel sounds are heard. No organomegaly noted. EXTREMITIES: No evidence of peripheral edema and no calf tenderness noted. VASCULAR: Radial and dorsalis pedis pulses palpated, no evidence of clubbing. NEUROLOGIC: Patient is awake, alert and oriented x3. ASSESSMENT Precordial chest pain Elevated d-dimer, unknown etiology. DVT and PE ruled out. Hypertension, uncontrolled on admission Dyslipidemia Peripheral vascular disease and evidence of mild to moderate carotid stenosis. Most recent Doppler performed in the office revealed left carotid ICA 50-79% stenosis and right ICA with 16-49% stenosis. Hypothyroidism History of seizures PLAN An acute coronary event has been ruled out. Obtain 2-D echocardiogram and Doppler study to assess cardiac structure and function. Perform Cardiolite stress test to assess for reversible cardiac ischemia. Initiate on atorvastatin 40 mg daily. If stress test is normal she is stable for discharge, follow up with Dr. Ward upon discharge. Thank you kindly for this consultation. Nurse Practitioner note has been reviewed, I agree with a documented findings and plan of care. Patient was seen and examined. 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 Past Anesthesia/Blood Transfusion Reactions: No Reported Reaction Past Psychological History: No Psychological Hx Reported Smoking Status: Never smoker Past Alcohol Use History: None Reported Past Drug Use History: None Reported - Past Family History Mother Family Medical History: Congestive Heart Failure (CHF), Dementia, Renal Disease Additional Family Medical History / Comment(s): in her 90s Father Family Medical History: Myocardial Infarction ([place]) Medications and Allergies Home Medications Medication Instructions Recorded Confirmed Type Aspirin 325 mg PO DAILY 09/10/15 08/10/18 History LORazepam [Ativan] 0.5 mg PO BID PRN 09/10/15 08/10/18 History Levothyroxine Sodium [Synthroid] 75 mcg PO QAM 09/10/15 08/10/18 History Losartan Potassium 100 mg PO AC-BRKFST 09/10/15 08/10/18 History OXcarbazepine [Trileptal] 300 mg PO HS 09/10/15 08/10/18 History amLODIPine BESYLATE [Norvasc] 10 mg PO AC-SUPPER 09/10/15 08/10/18 History Colesevelam [Welchol] 1,250 mg PO BID 05/27/17 08/10/18 History Multivitamins, Thera [Multivitamin 1 tab PO DAILY 05/27/17 08/10/18 History (formulary)] Allergies Allergy/AdvReac Type Severity Reaction Status Date / Time azithromycin Allergy Unknown Verified 08/10/18 21:43 carvedilol Allergy Unknown Verified 08/10/18 21:43 clindamycin Allergy Unknown Verified 08/10/18 21:43 diltiazem Allergy Unknown Verified 08/10/18 21:43 hydrochlorothiazide Allergy Unknown Verified 08/10/18 21:43 iron Allergy Unknown Verified 08/10/18 21:43 methylprednisolone Allergy Unknown Verified 08/10/18 21:43 [From Medrol] omega-3 acid ethyl esters Allergy Unknown Verified 08/10/18 21:43 Penicillins Allergy Unknown Verified 08/10/18 21:43 ciprofloxacin [From Cipro] AdvReac SEIZURE Verified 08/10/18 21:43 LIKE ACTIVITY" metronidazole [From Flagyl] AdvReac SEIZURE Verified 08/10/18 21:43 LIKE ACTIVITY nitroglycerin AdvReac Seizure Verified 08/10/18 21:43 with Patch Physical Exam Vitals: Vital Signs Temp Pulse Pulse Resp BP Pulse Ox 08/11/18 05:15 98.1 F 62 16 137/64 96 08/10/18 23:57 98.1 F 81 20 174/71 96 08/10/18 22:39 82 17 200/86 100 08/10/18 21:06 85 08/10/18 20:59 98.1 F 78 19 195/77 100 Intake and Output 08/10/18 08/11/18 08/11/18 22:59 06:59 14:59 Other: Weight 88.451 kg Results 08/10/18 21:11 08/10/18 21:11 Cardiac Enzymes 08/10/18 08/10/18 08/11/18 Range/Units 21:11 21:11 03:04 AST 30 (14-36) U/L Troponin I <0.012 <0.012 (0.000-0.034) ng/mL Coagulation 08/10/18 Range/Units 21:11 PT 9.6 (9.0-12.0) sec APTT 23.6 (22.0-30.0) sec Lipids 08/10/18 Range/Units 21:11 Triglycerides 193 H (<150) mg/dL Cholesterol 176 (<200) mg/dL HDL Cholesterol 36 L (40-60) mg/dL CBC 08/10/18 Range/Units 21:11 WBC 5.2 (3.8-10.6) k/uL RBC 4.52 (3.80-5.40) m/uL Hgb 12.9 (11.4-16.0) gm/dL Hct 39.1 (34.0-46.0) % Plt Count 238 (150-450) k/uL Comprehensive Metabolic Panel 08/10/18 Range/Units 21:11 Sodium 137 (137-145) mmol/L Potassium 4.0 (3.5-5.1) mmol/L Chloride 107 (98-107) mmol/L Carbon Dioxide 22 (22-30) mmol/L BUN 19 H (7-17) mg/dL Creatinine 0.64 (0.52-1.04) mg/dL Glucose 102 H (74-99) mg/dL Calcium 9.6 (8.4-10.2) mg/dL AST 30 (14-36) U/L ALT 24 (9-52) U/L Alkaline Phosphatase 105 (38-126) U/L Total Protein 7.1 (6.3-8.2) g/dL Albumin 4.2 (3.5-5.0) g/dL Current Medications Generic Name Dose Route Start Last Admin Trade Name Freq PRN Reason Stop Dose Admin Amlodipine Besylate 10 mg 08/11/18 17:30 Norvasc PO AC-SUPPER LEONARDO Aspirin 325 mg 08/11/18 09:00 Aspirin PO DAILY LEONARDO Colesevelam HCl 1,250 mg 08/11/18 09:00 Welchol PO BID LEONARDO Enoxaparin Sodium 80 mg 08/10/18 23:45 08/11/18 00:02 Lovenox SQ 80 mg Q12H LEONARDO Administration Sodium Chloride 1,000 mls @ 100 mls/hr 08/10/18 23:45 08/10/18 23:59 Saline 0.9% IV 100 mls/hr .Q10H LEONARDO Administration Levothyroxine Sodium 75 mcg 08/11/18 06:30 08/11/18 07:19 Synthroid PO 75 mcg QAM@0630 LEONARDO Administration Lorazepam 0.5 mg 08/10/18 23:47 Ativan PO BID PRN PRIOR TO ONSET OF SEIZURE Losartan Potassium 100 mg 08/11/18 07:30 Cozaar PO AC-BRKFST [facility] Multivitamins 1 each 08/11/18 09:00 Theragran PO DAILY [facility] Nitroglycerin 0.4 mg 08/10/18 23:39 Nitrostat SUBLINGUAL Q5M PRN Chest Pain Oxcarbazepine 300 mg 08/11/18 21:00 Trileptal PO HS LEONARDO Intake and Output 08/10/18 08/11/18 08/11/18 22:59 06:59 14:59 Other: Weight 88.451 kg 08/10/18 21:11 08/10/18 21:11
--- NOTE | 2018-08-11 11:36 | NM ---
EXAMINATION TYPE: NM stress cardiolite complete DATE OF EXAM: 08/11/2018 COMPARISON: NONE HISTORY: Chest pain TECHNIQUE: After the intravenous administration of 10.3 mCi Tc 99m Sestamibi - Rest images obtained 45 minutes post injection. The patient exercised using a ARTI protocol and 1 minute prior to peak exercise was injected with 26.7 mCi Tc 99m Sestamibi - Stress images obtained 15 minutes post injecti on. FINDINGS: Targeted heart rate was achieved during performance of the study. Review of stress and rest SPECT benji ges demonstrates no distinct perfusion abnormality. Gated analysis shows normal wall motion with an estimated left ventricular ejection fraction of 65 %. IMPRESSION: No scintigraphic evidence for reversible ischemia
[2018-08-11 12:36] VITALS: BP 136/74; PULSE 66; TEMP 97.8
--- NOTE | 2018-08-11 12:57 | ECHOF ---
Referral Reason:cp MEASUREMENTS -------- HEIGHT: 170.2 cm WEIGHT: 88.5 kg BP: 137/64 RVIDd: 2.5 cm (< 3.3) IVSd: 1.2 cm (0.6 - 1.1) LVIDd: 3.2 cm (3.9 - 5.3) LVPWd: 1.4 cm (0.6 - 1.1) IVSs: 1.3 cm LVIDs: 1.7 cm LVPWs: 1.4 cm Ao Diam: 2.7 cm (2.0 - 3.7) AV Cusp: 1.7 cm (1.5 - 2.6) LA Diam: 2.8 cm (2.7 - 3.8) MV EXCURSION: 19.197 mm (> 18.000) MV EF SLOPE: 72 mm/s (70 - 150) EPSS: 0.3 cm MV E Tristen: 0.75 m/s MV DecT: 181 ms MV A Tristen: 0.59 m/s MV E/A Ratio: 1.27 AR PHT: 652 ms RAP: 5.00 mmHg RVSP: 21.99 mmHg FINDINGS -------- Sinus rhythm. This was a technically adequate study. The left ventricular size is normal. There is mild concentric left ventricular hypertrophy. Overa ll left ventricular systolic function is normal with, an EF between 55 - 60 %. The right ventricle is normal in size. The left atrial size is normal. The right atrial size is normal. Interatrial and interventricular septum intact. Aortic valve is trileaflet and is mildly thickened. There is mild aortic regurgitation. Mild mitral annular calcification present. Mild mitral regurgitation is present. Mild tricuspid regurgitation present. There is no evidence of pulmonary hypertension. The right v entricular systolic pressure, as measured by Doppler, is 21.99mmHg. Trace/mild (physiologic) pulmonic regurgitation. The aortic root size is normal. Normal inferior vena cava with normal inspiratory collapse consistent with estimated right atrial pre ssure of 5 mmHg. There is no pericardial effusion. CONCLUSIONS -------- 1. Sinus rhythm. 2. This was a technically adequate study. 3. The left ventricular size is normal. 4. There is mild concentric left ventricular hypertrophy. 5. Overall left ventricular systolic function is normal with, an EF between 55 - 60 %. 6. The left atrial size is normal. 7. Aortic valve is trileaflet and is mildly thickened. 8. There is mild aortic regurgitation. 9. Mild mitral annular calcification present. 10. Mild mitral regurgitation is present. 11. Mild tricuspid regurgitation present. 12. There is no evidence of pulmonary hypertension. 13. Trace/mild (physiologic) pulmonic regurgitation. 14. The aortic root size is normal. 15. Normal inferior vena cava with normal inspiratory collapse consistent with estimated right atrial pressure of 5 mmHg. 16. There is no pericardial effusion. CARDIO CLINICIAN: Bel Klein RDCS
--- NOTE | 2018-08-11 13:34 | EST ---
EXERCISE STRESS DATE OF SERVICE: 08/11/2018 AGE: 73 SEX: Female HT: 67" WT: 195 pounds PROTOCOL: Cardiolite Piero STAGE: III DURATION OF EXERCISE: 6 minutes 15 seconds HEART RATE REST: 68 BLOOD PRESSURE REST: 145/72 MAXIMUM HEART RATE ACHIEVED: 154 MAXIMUM BLOOD PRESSURE: 212/68 85% MPHR: 125 100% MPHR: 147 METS: 7.5 INDICATIONS: Chest pain. CLINICAL INFORMATION: Baseline rhythm is sinus mechanism, rate 68, normal axis and intervals, normal electrocardiogram. Baseline blood pressure 145/72 mmHg. Patient exercise on Piero protocol for 6 minutes 15 seconds reaching a peak rate 154 beats per minute which is equal to 100% maximum predicted heart rate. Peak blood pressure 212/68 mmHg. Test was terminated secondary to fatigue. There was no chest pain. Electrocardiograph monitoring revealed no evidence of diagnostic ischemic ST deviation. Cardiolite was injected at peak exercise. CONCLUSION: 1. Good exercise tolerance. 2. Normal electrocardiograph response to exercise. 3. Nuclear images will be reported separately. MMODL / IJN: [id number] /
--- NOTE | 2018-08-11 13:38 | P.HPIM ---
History of Present Illness H&P Date: 08/11/18 Chief Complaint: Chest pain This history and physical and a 73-year-old white female with known history of TIA with chronic migraine headache is complaining significant substernal chest pressure which was radiating to the right side of her jaw. No left arm radiation. Some mild diaphoresis was also stated. Because of this, she was appropriately admitted to rule out myocardial infarction. She has no previous history of angina however, she has underlying history of hypercholesterolemia. She is intolerant to statins. Review of Systems Constitutional: Denies chills, Denies fever Eyes: denies blurred vision, denies pain Ears, nose, mouth and throat: Denies headache, Denies sore throat Cardiovascular: Reports as per HPI, Reports chest pain Respiratory: Denies cough Gastrointestinal: Denies abdominal pain, Denies diarrhea, Denies nausea, Denies vomiting Genitourinary: Denies dysuria, Denies hematuria 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 Past Anesthesia/Blood Transfusion Reactions: No Reported Reaction Past Psychological History: No Psychological Hx Reported Smoking Status: Never smoker Past Alcohol Use History: None Reported Past Drug Use History: None Reported - Past Family History Mother Family Medical History: Congestive Heart Failure (CHF), Dementia, Renal Disease Additional Family Medical History / Comment(s): in her 90s Father Family Medical History: Myocardial Infarction ([place]) Medications and Allergies Home Medications Medication Instructions Recorded Confirmed Type Aspirin 325 mg PO DAILY 09/10/15 08/10/18 History LORazepam [Ativan] 0.5 mg PO BID PRN 09/10/15 08/10/18 History Levothyroxine Sodium [Synthroid] 75 mcg PO QAM 09/10/15 08/10/18 History Losartan Potassium 100 mg PO AC-BRKFST 09/10/15 08/10/18 History OXcarbazepine [Trileptal] 300 mg PO HS 09/10/15 08/10/18 History amLODIPine BESYLATE [Norvasc] 10 mg PO AC-SUPPER 09/10/15 08/10/18 History Colesevelam [Welchol] 1,250 mg PO BID 05/27/17 08/10/18 History Multivitamins, Thera [Multivitamin 1 tab PO DAILY 05/27/17 08/10/18 History (formulary)] Allergies Allergy/AdvReac Type Severity Reaction Status Date / Time azithromycin Allergy Unknown Verified 08/10/18 21:43 carvedilol Allergy Unknown Verified 08/10/18 21:43 clindamycin Allergy Unknown Verified 08/10/18 21:43 diltiazem Allergy Unknown Verified 08/10/18 21:43 hydrochlorothiazide Allergy Unknown Verified 08/10/18 21:43 iron Allergy Unknown Verified 08/10/18 21:43 methylprednisolone Allergy Unknown Verified 08/10/18 21:43 [From Medrol] omega-3 acid ethyl esters Allergy Unknown Verified 08/10/18 21:43 Penicillins Allergy Unknown Verified 08/10/18 21:43 ciprofloxacin [From Cipro] AdvReac SEIZURE Verified 08/10/18 21:43 LIKE ACTIVITY" metronidazole [From Flagyl] AdvReac SEIZURE Verified 08/10/18 21:43 LIKE ACTIVITY nitroglycerin AdvReac Seizure Verified 08/10/18 21:43 with Patch Physical Exam Vitals: Vital Signs Temp Pulse Pulse Pulse Resp BP BP 08/11/18 12:00 97.8 F 66 16 136/74 08/11/18 08:00 85 16 08/11/18 07:34 97.7 F 70 16 150/83 08/11/18 05:15 98.1 F 62 16 137/64 08/10/18 23:57 98.1 F 81 20 174/71 08/10/18 22:39 82 17 200/86 08/10/18 21:06 85 08/10/18 20:59 98.1 F 78 19 195/77 Pulse Ox 08/11/18 12:00 98 08/11/18 08:00 08/11/18 07:34 98 08/11/18 05:15 96 08/10/18 23:57 96 08/10/18 22:39 100 08/10/18 21:06 08/10/18 20:59 100 Intake and Output 08/10/18 08/11/18 08/11/18 22:59 06:59 14:59 Other: Voiding Method Toilet Weight 88.451 kg - Constitutional General appearance: no acute distress - EENT Eyes: EOMI - Neck Neck: no lymphadenopathy - Respiratory Respiratory: bilateral: CTA - Cardiovascular Rhythm: regular Heart sounds: normal: S1, S2 Abnormal Heart Sounds: no S3 Gallop - Gastrointestinal General gastrointestinal: soft, no tenderness - Psychiatric Psychiatric: A&O x's 3, appropriate affect, intact judgment & insight Results CBC & Chem 7: 08/10/18 21:11 08/10/18 21:11 Labs: Abnormal Lab Results - Last 24 Hours (Table) 08/10/18 08/10/18 08/10/18 Range/Units 21:11 21:11 21:11 D-Dimer >34.11 H (<0.60) mg/L FEU BUN 19 H (7-17) mg/dL Glucose 102 H (74-99) mg/dL Triglycerides 193 H (<150) mg/dL LDL Cholesterol, Calc 101 H (0-99) mg/dL HDL Cholesterol 36 L (40-60) mg/dL Thrombosis Risk Factor Assmnt - Choose All That Apply Any of the Below Risk Factors Present?: Yes Each Factor Represents 1 point: Obesity (BMI >25) Other Risk Factors: Yes Each Risk Factor Represents 2 Points: Age 61-74 years Thrombosis Risk Factor Assessment Total Risk Factor Score: 3 Thrombosis Risk Factor Assessment Level: Moderate Risk Assessment and Plan (1) Angina pectoris Current Visit: Yes Status: Acute Code(s): I20.9 - ANGINA PECTORIS, UNSPECIFIED SNOMED Code(s): 969496558 (2) Chest pain Current Visit: Yes Status: Acute Code(s): R07.9 - CHEST PAIN, UNSPECIFIED SNOMED Code(s): 12305290 Plan: Rule out myocardial infraction. Stress thallium testing. Reconcile medications. She is full code otherwise. Anticipate discharge in the next 24 hours. Time with Patient: Less than 30
--- NOTE | 2018-08-11 13:40 | P.DS ---
Providers Date of admission: 08/10/18 23:47 Attending physician: Nate Melo Consults: 08/10/18 23:39 Consult Physician Routine Consulting Provider: John Ward Consult Reason/Comments: chest pain Do you want consulting provider notified?: Yes Primary care physician: Nate Melo - Discharge Diagnosis(es) (1) Angina pectoris Current Visit: Yes Status: Acute (2) Chest pain Current Visit: Yes Status: Acute Hospital Course: This discharge summary 73-year-old white female essentially admitted for angina pectoris. The patient was ruled out for myocardial infraction and somatically and had stress testing which was negative. The patient will be discharged in stable condition to follow-up with me in about 3-5 days. Patient Condition at Discharge: Fair Plan - Discharge Summary Discharge Rx Participant: No New Discharge Prescriptions: Continue RX: Aspirin 325 mg PO DAILY RX: OXcarbazepine [Trileptal] 300 mg PO HS RX: Losartan Potassium 100 mg PO AC-BRKFST RX: amLODIPine BESYLATE [Norvasc] 10 mg PO AC-SUPPER RX: Levothyroxine Sodium [Synthroid] 75 mcg PO QAM RX: LORazepam [Ativan] 0.5 mg PO BID PRN PRN Reason: PRIOR TO ONSET OF SEIZURE RX: Multivitamins, Thera [Multivitamin (formulary)] 1 tab PO DAILY RX: Colesevelam [Welchol] 1,250 mg PO BID Discharge Medication List RX: Aspirin 325 mg PO DAILY 09/10/15 [History] RX: LORazepam [Ativan] 0.5 mg PO BID PRN 09/10/15 [History] RX: Levothyroxine Sodium [Synthroid] 75 mcg PO QAM 09/10/15 [History] RX: Losartan Potassium 100 mg PO AC-BRKFST 09/10/15 [History] RX: OXcarbazepine [Trileptal] 300 mg PO HS 09/10/15 [History] RX: amLODIPine BESYLATE [Norvasc] 10 mg PO AC-SUPPER 09/10/15 [History] RX: Colesevelam [Welchol] 1,250 mg PO BID 05/27/17 [History] RX: Multivitamins, Thera [Multivitamin (formulary)] 1 tab PO DAILY 05/27/17 [History] Follow up Appointment(s)/Referral(s): Nate Melo MD [Primary Care Provider] - 1-2 days
[2018-08-11] MEDS ORDERED: amLODIPine 10 MG TAB PO SCH (17:30)
[2018-08-11] MEDS ORDERED: OXcarbazepine 300 MG TAB PO SCH (21:00)
== END 2018-08-11 14:09 | disposition home or self-care (01) ==
LOC: EC 20:50 → 1SOBS 23:47
PROVIDERS: ADMIT Family Medicine; ATTEND Family Medicine
DX: I20.9 Angina pectoris, unspecified (principal); R79.89 Other specified abnormal findings of blood chemistry; I10 Essential (primary) hypertension; I65.23 Occlusion and stenosis of bilateral carotid arteries; E03.9 Hypothyroidism, unspecified; G40.909 Epilepsy, unspecified, not intractable, without status epilepticus; E78.00 Pure hypercholesterolemia, unspecified; I73.9 Peripheral vascular disease, unspecified; E78.5 Hyperlipidemia, unspecified; E66.9 Obesity, unspecified; Z68.30 Body mass index [BMI] 30.0-30.9, adult; Z79.82 Long term (current) use of aspirin; Z79.890 Hormone replacement therapy; Z79.899 Other long term (current) drug therapy; Z88.1 Allergy status to other antibiotic agents; Z88.3 Allergy status to other anti-infective agents; Z88.0 Allergy status to penicillin; Z88.8 Allergy status to other drugs, medicaments and biological substances; Z90.710 Acquired absence of both cervix and uterus; Z86.73 Personal history of transient ischemic attack (TIA), and cerebral infarction without residual deficits; Z87.19 Personal history of other diseases of the digestive system; Z87.74 Personal history of (corrected) congenital malformations of heart and circulatory system; Z82.49 Family history of ischemic heart disease and other diseases of the circulatory system; Z81.8 Family history of other mental and behavioral disorders; Z84.1 Family history of disorders of kidney and ureter
CPT/HCPCS: 96372 ×2; 99285; 36415; 93005 ×2; 93017; 93306; 85379; 80061; 80053; 82150; 83690; 83735; 84484 ×2; 85025; 85610; 85730; 71045; 93970; 71275; 78452; G0378 ×2; A9500; J1650; Q9967

== ENCOUNTER 2018-09-11 22:04 | Emergency (ER) | payer MEDICARE ==
[2018-09-11 22:18] VITALS: RESP 16; TEMP 98.4
[2018-09-11 22:47] LABS: Basophils # (A) 0.1 k/uL (0-0.2); Basophils % (A) 1 %; Eosinophils # (A) 0.2 k/uL (0-0.7); Eosinophils % (A) 1 %; HCT 41.1 % (34.0-46.0); HGB 13.6 gm/dL (11.4-16.0); Lymphocytes # (A) 1.1 k/uL (1.0-4.8); Lymphocytes % (A) 10 %; MCH 28.8 pg (25.0-35.0); MCHC 33.2 g/dL (31.0-37.0); MCV 86.7 fL (80.0-100.0); Mean Platelet Volume 6.9; Monocytes # (A) 0.4 k/uL (0-1.0); Monocytes % (A) 4 %; Neutrophils # (A) 8.6 k/uL (1.3-7.7); Neutrophils % (A) 83 %; Platelet Count 274 k/uL (150-450); RBC 4.74 m/uL (3.80-5.40); RDW 14.5 % (11.5-15.5); WBC 10.4 k/uL (3.8-10.6)
[2018-09-11 22:56] LABS: ALT 21 U/L (9-52); AST 31 U/L (14-36); African American GFR (CKD) >90 (>60 ml/min/1.73 sqM); Albumin 4.5 g/dL (3.5-5.0); Alkaline Phosphatase 118 U/L (38-126); Anion Gap 9 mmol/L; Blood Urea Nitrogen 19 mg/dL (7-17); Calcium 9.7 mg/dL (8.4-10.2); Carbon Dioxide 22 mmol/L (22-30); Chloride 107 mmol/L (98-107); Glucose 130 mg/dL (74-99); Non-African American GFR(CKD) 88 (>60 ml/min/1.73 sqM); Sodium 138 mmol/L (137-145); Total Bilirubin 0.3 mg/dL (0.2-1.3); Total Protein 7.5 g/dL (6.3-8.2)
[2018-09-11 23:08] LABS: INR 0.9 (<1.2); Partial Thromboplastin Time 22.8 sec (22.0-30.0); Prothrombin Time 9.5 sec (9.0-12.0)
[2018-09-11 23:50] LABS: D-Dimer >35.20 mg/L FEU (<0.60)
--- NOTE | 2018-09-11 23:57 | CT ---
EXAM: CT Head Without Intravenous Contrast CLINICAL HISTORY: Pain TECHNIQUE: Axial computed tomography images of the head/brain without intravenous contrast. CTDI is 49.1 mGy and DLP is 1099.4 mGy-cm. This CT exam was performed using one or more of the following dose reduction techniques: automated exposure control, adjustment of the mA and/or kV according to patient size, and/or use of iterative reconstruction technique. COMPARISON: 09/10/15 FINDINGS: Brain: Stable appearance to old area of infarct in the left posterior cerebral artery distribution. No acute infarct. No evidence for hemorrhage or hematoma. Ventricles: Unremarkable. No ventriculomegaly. Bones/joints: Unremarkable. No acute fracture. Soft tissues: Unremarkable. Sinuses: Unremarkable as visualized. No acute sinusitis. Mastoid air cells: Unremarkable as visualized. No mastoid effusion. IMPRESSION: Stable compared to prior study. No acute abnormality
--- NOTE | 2018-09-12 00:08 | XR ---
EXAM: XR Chest, 1 View CLINICAL HISTORY: : chest pain TECHNIQUE: Frontal view of the chest. COMPARISON: 08/10/18 FINDINGS: Lungs: Unremarkable. No consolidation. Pleural space: Unremarkable. No pneumothorax. Heart: Unremarkable. No cardiomegaly. Mediastinum: Unremarkable. Bones/joints: Unremarkable. IMPRESSION: Unremarkable single view the chest
[2018-09-12 01:11] LABS: Appearance,Urine Clear (Clear); Bilirubin,Urine Negative (Negative); Blood,Urine Negative (Negative); Color,Urine Light Yellow; Glucose,Urine (UA) Negative (Negative); Ketones,Urine Negative (Negative); Leukocyte Esterase,Urine Negative (Negative); Nitrite,Urine Negative (Negative); PH, Urine 6.5 (5.0-8.0); Protein,Urine Negative (Negative); Specific Gravity,Urine 1.018 (1.001-1.035); Urobilinogen,Urine <2.0 mg/dL (<2.0)
--- NOTE | 2018-09-12 01:30 | CT ---
EXAM: CT Angiography Chest With Intravenous Contrast CLINICAL HISTORY: CT Reason: Pain TECHNIQUE: Axial computed tomographic angiography images of the chest with intravenous contrast using pulmonary embolism protocol. CTDI is 11.7 mGy and DLP is 384.5 mGy-cm. This CT exam was performed using one or more of the following dose reduction techniques: automated exposure control, adjustment of the mA and/or kV according to patient size, and/or use of iterative reconstruction technique. MIP reconstructed images were created and reviewed. Coronal and sagittal reformatted images were created and reviewed. COMPARISON: No relevant prior studies available. FINDINGS: Pulmonary arteries: Unremarkable. No pulmonary embolism. Aorta: No acute findings. No thoracic aortic aneurysm. Lungs: 4.5 mm sub-solid nodule seen only on lung windows subpleural region left upper lobe Pleural space: Unremarkable. No significant effusion. No pneumothorax. Heart: Cardiomegaly No significant pericardial effusion. No evidence of RV dysfunction. Bones/joints: No acute fracture. No dislocation. Soft tissues: Unremarkable. Lymph nodes: Unremarkable. No enlarged lymph nodes. IMPRESSION: No pulmonary embolism. No abnormality of the aorta. 4.5 mm subpleural nodule noted in the left upper lobe. Appropriate follow-up utilizing Maeve 2017 criteria is recommended. This appears stable compared to the prior study. No evidence for effusions. There is cardiomegaly.
--- NOTE | 2018-09-12 02:52 | ED ---
Chest Pain HPI - General Chief Complaint: Chest Pain Stated Complaint: chest pain Time Seen by Provider: 09/11/18 22:20 Source: family, EMS Mode of arrival: EMS Limitations: altered mental status - History of Present Illness Initial Comments: This patient is 73-year-old woman who presents to be evaluated for chest pain. This had come on tonight while she had been using computer. The patient is very somnolent and much of the history is aided by her who was there. The patient did take some Ativan after the onset of the symptoms. MD Complaint: chest pain -: minutes(s) Onset: other (Using a computer) Pain Location: substernal Severity: mild Consistency: constant Improves With: nothing Worsens With: nothing Anginal Symptoms: nausea Treatments Prior to Arrival: other (Ativan) - Related Data Home Medications Medication Instructions Recorded Confirmed Aspirin 325 mg PO DAILY 09/10/15 09/11/18 LORazepam [Ativan] 0.5 mg PO BID PRN 09/10/15 09/11/18 Levothyroxine Sodium [Synthroid] 75 mcg PO QAM 09/10/15 09/11/18 Losartan Potassium 100 mg PO AC-BRKFST 09/10/15 09/11/18 OXcarbazepine [Trileptal] 300 mg PO HS 09/10/15 09/11/18 amLODIPine BESYLATE [Norvasc] 10 mg PO AC-SUPPER 09/10/15 09/11/18 Colesevelam [Welchol] 1,250 mg PO BID 05/27/17 09/11/18 Multivitamins, Thera [Multivitamin 1 tab PO DAILY 05/27/17 09/11/18 (formulary)] Allergies Allergy/AdvReac Type Severity Reaction Status Date / Time azithromycin Allergy Unknown Verified 09/11/18 22:57 carvedilol Allergy Unknown Verified 09/11/18 22:57 clindamycin Allergy Unknown Verified 09/11/18 22:57 diltiazem Allergy Unknown Verified 09/11/18 22:57 hydrochlorothiazide Allergy Unknown Verified 09/11/18 22:57 iron Allergy Unknown Verified 09/11/18 22:57 methylprednisolone Allergy Unknown Verified 09/11/18 22:57 [From Medrol] omega-3 acid ethyl esters Allergy Unknown Verified 09/11/18 22:57 Penicillins Allergy Unknown Verified 09/11/18 22:57 ciprofloxacin [From Cipro] AdvReac SEIZURE Verified 09/11/18 22:57 LIKE ACTIVITY" metronidazole [From Flagyl] AdvReac SEIZURE Verified 09/11/18 22:57 LIKE ACTIVITY nitroglycerin AdvReac Seizure Verified 09/11/18 22:57 with Patch Review of Systems ROS Statement: Those systems with pertinent positive or pertinent negative responses have been documented in the HPI. ROS Other: All systems not noted in ROS Statement are negative. Limitations: ROS unobtainable due to patients medical condition (Very somnolent) Constitutional: Denies: fever Respiratory: Denies: cough, dyspnea Cardiovascular: Reports: chest pain. Denies: palpitations Gastrointestinal: Reports: nausea. Denies: abdominal pain, vomiting Genitourinary: Denies: dysuria Musculoskeletal: Denies: back pain Skin: Denies: rash Neurological: Denies: headache EKG Findings - EKG Comments: EKG Findings:: Possible old anterior infarct - EKG Results: EKG: interpreted by EDVIN, sinus rhythm (Rate approximately 87 bpm), normal axis, normal QRS, normal ST/T 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 Past Anesthesia/Blood Transfusion Reactions: No Reported Reaction Past Psychological History: No Psychological Hx Reported Smoking Status: Never smoker Past Alcohol Use History: None Reported Past Drug Use History: None Reported - Past Family History Mother Family Medical History: Congestive Heart Failure (CHF), Dementia, Renal Disease Additional Family Medical History / Comment(s): in her 90s Father Family Medical History: Myocardial Infarction ([place]) General Exam Limitations: no limitations General appearance: alert, in no apparent distress, other (Patient very somnolent but does arouse to tactile stimuli) Head exam: Present: atraumatic, normocephalic Eye exam: Present: normal appearance. Absent: scleral icterus, conjunctival injection ENT exam: Present: normal oropharynx Neck exam: Present: normal inspection Respiratory exam: Present: normal lung sounds bilaterally. Absent: respiratory distress, wheezes, rales, rhonchi, stridor Cardiovascular Exam: Present: regular rate, normal rhythm, normal heart sounds. Absent: systolic murmur, diastolic murmur, rubs, gallop GI/Abdominal exam: Present: soft. Absent: distended, tenderness, guarding, rebound, rigid, mass Extremities exam: Present: normal inspection, normal capillary refill. Absent: pedal edema, calf tenderness Back exam: Present: normal inspection. Absent: CVA tenderness (R), CVA tenderness (L) Neurological exam: Present: altered, CN II-XII intact. Absent: motor sensory deficit Skin exam: Present: warm, dry, intact, normal color. Absent: rash Course Vital Signs 09/11/18 09/12/18 09/12/18 22:12 00:14 03:09 Temperature 98.4 F Pulse Rate 89 77 75 Respiratory 16 16 16 Rate Blood Pressure 153/83 141/73 131/77 O2 Sat by Pulse 99 95 97 Oximetry Chest Pain MDM - [facility] Patient 73-year-old woman presenting to be evaluated for episode of chest pain. The patient was very somnolent and stated this was somewhat unusual for her that despite the Ativan and therefore CT brain also obtained. Following the evaluation I did reevaluate and the patient is alert and appropriate. She does state that her chest pain has resolved. I did offer admission but at this point the patient would prefer to go home and follow-up. Discussed appropriate follow-up as well as return parameters. Disposition Clinical Impression: Chest pain, D-dimer, elevated Disposition: HOME SELF-CARE Condition: Fair Instructions (If sedation given, give patient instructions): Chest Pain (ED) Is patient prescribed a controlled substance at d/c from ED?: No Referrals: Nate Melo MD [Primary Care Provider] - 1-2 days John Ward MD [STAFF PHYSICIAN] - 1-2 days
[2018-09-12 03:10] VITALS: BP 131/77; PULSE 75
== END 2018-09-12 03:11 | disposition home or self-care (01) ==
LOC: EC 22:04
DX: R07.2 Precordial pain (principal); R79.89 Other specified abnormal findings of blood chemistry; R11.0 Nausea; I10 Essential (primary) hypertension; G40.909 Epilepsy, unspecified, not intractable, without status epilepticus; E07.9 Disorder of thyroid, unspecified; Z86.73 Personal history of transient ischemic attack (TIA), and cerebral infarction without residual deficits; Z82.49 Family history of ischemic heart disease and other diseases of the circulatory system; Z79.82 Long term (current) use of aspirin; Z79.890 Hormone replacement therapy; Z79.899 Other long term (current) drug therapy; Z88.1 Allergy status to other antibiotic agents; Z88.8 Allergy status to other drugs, medicaments and biological substances; Z88.0 Allergy status to penicillin
CPT/HCPCS: 99285; 36415; 93005; 85379; 80053; 83735; 84484; 85025; 85610; 85730; 81003; 71045; 70450; 71275; Q9967

== ENCOUNTER 2018-10-01 12:15 | Emergency (ER) | payer MEDICARE ==
[2018-10-01] MEDS ORDERED: SODIUM CHLORIDE 0.9% 1,000 ML IV STA (12:21)
[2018-10-01 12:27] VITALS: TEMP 98
[2018-10-01] MEDS ORDERED: LABETALOL 5 MG/ML VIAL MDV IVP STA (12:28)
--- NOTE | 2018-10-01 12:44 | CT ---
EXAMINATION TYPE: CT brain wo con for TPA DATE OF EXAM: 10/01/2018 COMPARISON: 09/11/2018 HISTORY: CODE STROKE CT DLP: Not availabe at this time due to CODE STROKE STATUS [employer] Automated exposure control for dose reduction was used. FINDINGS: There is a large area of encephalomalacia involving the left occipital lobe, temporal lobe and tub tender ior left parietal lobe. No midline shift or mass effect. Generalized degenerative changes are seen. N o acute intracranial hemorrhage. Calvarium intact. IMPRESSION: DEGENERATIVE AND REMOTE ISCHEMIC CHANGE WITH NO ACUTE HEMORRHAGE OR MASS EFFECT.
--- NOTE | 2018-10-01 13:18 | ED ---
Neuro HPI - General Chief Complaint: Neuro Symptoms/Deficit Stated Complaint: Stroke Time Seen by Provider: 10/01/18 12:19 Source: patient, EMS, RN notes reviewed, old records reviewed Mode of arrival: EMS Limitations: physical limitation - History of Present Illness Is the patient presenting with stroke symptoms?: Yes Last Known Well Date: 10/01/18 Last Known Well Time: 11:00 -: hour(s) (1) Initial Comments: This is a 73-year-old female the ER for evaluation shortness a for evaluation regards to right-sided slurred speech right-sided weakness. Patient has history of TIA. Patient was seen in Dr. Melo's office with history of heart disease. Patient transferred to ER by EMS for stroke evaluation. Patient comes in with symptoms significantly improving speaking clearly and moving right extremity with greater strength, just some weakness compared to left currently. Patient denies headache or recent trauma Location: speech, right arm, right leg History of same: Yes Place: home Severity: mild Quality: weak, numb Improves With: time Worsens With: none On Anticoagulants: No Context: sudden onset Treatments Prior to Arrival: none - Related Data Home Medications: Home Medications Medication Instructions Recorded Confirmed LORazepam [Ativan] 0.5 mg PO BID PRN 09/10/15 10/01/18 Levothyroxine Sodium [Synthroid] 75 mcg PO QAM 09/10/15 10/01/18 Losartan Potassium 100 mg PO AC-BRKFST 09/10/15 10/01/18 OXcarbazepine [Trileptal] 300 mg PO HS 09/10/15 10/01/18 amLODIPine BESYLATE [Norvasc] 10 mg PO AC-SUPPER 09/10/15 10/01/18 Colesevelam [Welchol] 1,250 mg PO BID 05/27/17 10/01/18 Multivitamins, Thera [Multivitamin 1 tab PO DAILY 05/27/17 10/01/18 (formulary)] Aspirin EC [Ecotrin Low Dose] 81 mg PO DAILY 10/01/18 10/01/18 L.acidoph,Paracasei, B.lactis 1 cap PO DAILY 10/01/18 10/01/18 [Probiotic] Allergies/Adverse Reactions: Allergies Allergy/AdvReac Type Severity Reaction Status Date / Time azithromycin Allergy Unknown Verified 10/01/18 13:15 carvedilol Allergy Unknown Verified 10/01/18 13:15 clindamycin Allergy Unknown Verified 10/01/18 13:15 diltiazem Allergy Unknown Verified 10/01/18 13:15 hydrochlorothiazide Allergy Unknown Verified 10/01/18 13:15 iron Allergy Unknown Verified 10/01/18 13:15 methylprednisolone Allergy Unknown Verified 10/01/18 13:15 [From Medrol] omega-3 acid ethyl esters Allergy Unknown Verified 10/01/18 13:15 Penicillins Allergy Unknown Verified 10/01/18 13:15 ciprofloxacin [From Cipro] AdvReac SEIZURE Verified 10/01/18 13:15 LIKE ACTIVITY" metronidazole [From Flagyl] AdvReac SEIZURE Verified 10/01/18 13:15 LIKE ACTIVITY nitroglycerin AdvReac Seizure Verified 10/01/18 13:15 with Patch Review of Systems ROS Statement: Those systems with pertinent positive or pertinent negative responses have been documented in the HPI. ROS Other: All systems not noted in ROS Statement are negative. General Exam - General Exam Comments Initial Comments: NIH of 6 upon arrival, 3 Hospital NIH between 6 and 8 with right-sided weakness and slurred speech secondary documentation EMS Limitations: physical limitation General appearance: alert, in no apparent distress Head exam: Present: atraumatic, normocephalic, normal inspection Eye exam: Present: normal appearance, PERRL, EOMI. Absent: scleral icterus, conjunctival injection, periorbital swelling ENT exam: Present: normal exam, mucous membranes moist Neck exam: Present: normal inspection. Absent: tenderness, meningismus, lymphadenopathy Respiratory exam: Present: normal lung sounds bilaterally. Absent: respiratory distress, wheezes, rales, rhonchi, stridor Cardiovascular Exam: Present: regular rate, normal rhythm, normal heart sounds. Absent: systolic murmur, diastolic murmur, rubs, gallop, clicks GI/Abdominal exam: Present: soft, normal bowel sounds. Absent: distended, tenderness, guarding, rebound, rigid Extremities exam: Present: normal inspection, full ROM, normal capillary refill. Absent: tenderness, pedal edema, joint swelling, calf tenderness Back exam: Present: normal inspection Neurological exam: Present: alert, oriented X3, CN II-XII intact Psychiatric exam: Present: normal affect, normal mood Skin exam: Present: warm, dry, intact, normal color. Absent: rash Stroke MDM - Lab Data Result diagrams: 10/01/18 13:01 10/01/18 13:01 Lab Results 10/01/18 10/01/18 10/01/18 Range/Units 13: 13: 13:01 WBC 4.6 (3.8-10.6) k/uL RBC 4.53 (3.80-5.40) m/uL Hgb 13.2 (11.4-16.0) gm/dL Hct 40.0 (34.0-46.0) % MCV 88.2 (80.0-100.0) fL MCH 29.1 (25.0-35.0) pg MCHC 33.0 (31.0-37.0) g/dL RDW 15.2 (11.5-15.5) % Plt Count 229 (150-450) k/uL Neutrophils % 59 % Lymphocytes % 25 % Monocytes % 8 % Eosinophils % 4 % Basophils % 1 % Neutrophils # 2.7 (1.3-7.7) k/uL Lymphocytes # 1.1 (1.0-4.8) k/uL Monocytes # 0.4 (0-1.0) k/uL Eosinophils # 0.2 (0-0.7) k/uL Basophils # 0.1 (0-0.2) k/uL PT (9.0-12.0) sec INR (<1.2) APTT (22.0-30.0) sec Sodium 138 (137-145) mmol/L Potassium 4.3 (3.5-5.1) mmol/L Chloride 106 (98-107) mmol/L Carbon Dioxide 25 (22-30) mmol/L Anion Gap 7 mmol/L BUN 21 H (7-17) mg/dL Creatinine 0.78 (0.52-1.04) mg/dL Est GFR (CKD-EPI)AfAm 88 (>60 ml/min/1.73 sqM) Est GFR (CKD-EPI)NonAf 76 (>60 ml/min/1.73 sqM) Glucose 97 (74-99) mg/dL Calcium 9.7 (8.4-10.2) mg/dL Total Bilirubin 0.8 (0.2-1.3) mg/dL AST 25 (14-36) U/L ALT 26 (9-52) U/L Alkaline Phosphatase 111 (38-126) U/L Total Creatine Kinase 46 (30-135) U/L CK-MB (CK-2) 0.3 (0.0-2.4) ng/mL CK-MB (CK-2) Rel Index 0.7 Troponin I <0.012 (0.000-0.034) ng/mL Total Protein 7.4 (6.3-8.2) g/dL Albumin 4.3 (3.5-5.0) g/dL 10/01/18 Range/Units 13:01 WBC (3.8-10.6) k/uL RBC (3.80-5.40) m/uL Hgb (11.4-16.0) gm/dL Hct (34.0-46.0) % MCV (80.0-100.0) fL MCH (25.0-35.0) pg MCHC (31.0-37.0) g/dL RDW (11.5-15.5) % Plt Count (150-450) k/uL Neutrophils % % Lymphocytes % % Monocytes % % Eosinophils % % Basophils % % Neutrophils # (1.3-7.7) k/uL Lymphocytes # (1.0-4.8) k/uL Monocytes # (0-1.0) k/uL Eosinophils # (0-0.7) k/uL Basophils # (0-0.2) k/uL PT 9.8 (9.0-12.0) sec INR 0.9 (<1.2) APTT 22.9 (22.0-30.0) sec Sodium (137-145) mmol/L Potassium (3.5-5.1) mmol/L Chloride (98-107) mmol/L Carbon Dioxide (22-30) mmol/L Anion Gap mmol/L BUN (7-17) mg/dL Creatinine (0.52-1.04) mg/dL Est GFR (CKD-EPI)AfAm (>60 ml/min/1.73 sqM) Est GFR (CKD-EPI)NonAf (>60 ml/min/1.73 sqM) Glucose (74-99) mg/dL Calcium (8.4-10.2) mg/dL Total Bilirubin (0.2-1.3) mg/dL AST (14-36) U/L ALT (9-52) U/L Alkaline Phosphatase (38-126) U/L Total Creatine Kinase (30-135) U/L CK-MB (CK-2) (0.0-2.4) ng/mL CK-MB (CK-2) Rel Index Troponin I (0.000-0.034) ng/mL Total Protein (6.3-8.2) g/dL Albumin (3.5-5.0) g/dL - NIH Stroke Scale 1a. Level of Consciousness: (0) alert 1b. LOC Questions: (0) answers correctly 1c. LOC Commands: (0) performs tasks correctly 2. Best Gaze: (0) normal 3. Visual: (0) no visual loss 4. Facial Palsy: (0) normal symmetrical movement 5a. Motor Arm Left: (0) no drift 5b. Motor Arm Right: (1) drift 6a. Motor Leg Left: (0) no drift 6b. Motor Leg Right: (1) drift 7. Limb Ataxia: (0) absent 8. Sensory: (0) normal 9. Best Language: (0) no aphasia 10. Dysarthria: (1) mild/moderate dysarthria 11. Extinction/Inattention: (0) no abnormality - Thrombolytic Inclusion/Exclusion Thrombolytic Contraindications: Rapidly Improving s/s - Medical Decision Making 73 female the ER with history of CVA coming of CVA symptoms, CVA is resolved, no PE no TPA given outpatient be started on aspirin Plavix Lipitor and then transferred to [facility] for further evaluation by neurosurgery - Radiology Data Radiology results: report reviewed (CT brain does show old damage, CT a had neck does show acute occlusion of left MCA, M2), image reviewed - EKG Data -: EKG Interpreted by Me (EKG shows normal sinus rhythm rate of 60, IL 160, QRS 92, QTc 461) 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 Past Anesthesia/Blood Transfusion Reactions: No Reported Reaction Past Psychological History: No Psychological Hx Reported Smoking Status: Never smoker Past Alcohol Use History: None Reported Past Drug Use History: None Reported - Past Family History Mother Family Medical History: Congestive Heart Failure (CHF), Dementia, Renal Disease Additional Family Medical History / Comment(s): in her 90s Father Family Medical History: Myocardial Infarction (MT) Course Vital Signs 10/01/18 10/01/18 10/01/18 12:23 12:43 13:00 Temperature 98 F Pulse Rate 67 87 66 Respiratory 18 44 H 12 Rate Blood Pressure 200/94 200/94 192/68 O2 Sat by Pulse 100 100 86 L Oximetry 10/01/18 10/01/18 10/01/18 13:31 14:00 14:30 Temperature Pulse Rate 92 64 75 Respiratory 25 H 7 L 15 Rate Blood Pressure 183/85 185/79 O2 Sat by Pulse 98 Oximetry - Reevaluation(s) Reevaluation #1: 10/01/18 15:06 Medical records reviewed Reevaluation #2: 10/01/18 15:06 Code stroke was paged upon patient's arrival to ER, patient was seen by neuro intervention on stroke robot here in the emergency room, patient was not TPA candidate secondary to resolve symptoms but is being transferred to [facility] for possible neurosurgical intervention secondary to occluded M2 of the MCA Reevaluation #3: 10/01/18 15:07 Spoke with family regarding symptoms findings and need for further treatment, family is agreeable Critical Care Time Critical Care Time: Yes Total Critical Care Time: 31 Disposition Clinical Impression: Cerebrovascular accident Disposition: OTHER INSTITUTION NOT DEFINED Condition: Fair Is patient prescribed a controlled substance at d/c from ED?: No Referrals: Nate Melo MD [Primary Care Provider] - 1-2 days - Out of Hospital Transfer - Req. Specs Out of Hospital Transfer - Requested Specifics: Other Emergency Center ([facility])
--- NOTE | 2018-10-01 13:29 | CT ---
EXAMINATION TYPE: CT angio head neck DATE OF EXAM: 10/01/2018 HISTORY: CODE STROKE; Right extremity weakness COMPARISON: None CT DLP: 1638.9 mGycm. Automated Exposure Control for Dose Reduction was Utilized. TECHNIQUE: CTA scan of the neck is performed without and with IV Contrast, patient injected with 50 ml mL of Isovue 370, axial images are obtained, coronal and sagittal reformatted images are reviewed. Three-D reconstructed images are created on an independent workstation and reviewed. FINDINGS: There is subsegmental consolidation involving the lungs most typical of atelectasis common carotid arteries are patent bilaterally. There is atherosclerotic plaque and moderate stenosis at the level of the proximal ICA measuring less than 70%. Approximate 60-70% stenosis involving the proxima l right ICA. There is shoddy lymph nodes seen in the neck with a pathologic lymph node in the submandibular region measuring 1.1 cm. Multilevel degenerative change of the spine noted. Evidence of encephalomalacia noted involving the left temporal, occipital and posterior parietal lobe . There is a rather abrupt termination of the M2 segment of the left MCA which could been the basis of acute thrombosis. Should be correlated clinically. Bilateral ALLYSON appears to be patent. There is a hyp oplastic A1 segment of the right anterior cerebral artery There also is reduced enhancement along the distal margin of the M2 segment of the right MCA. Left ve rtebral artery is dominant. Basilar artery is patent. There is abrupt termination of the left posteri or cerebral artery in the distribution of previous infarct. IMPRESSION: 1. There is abrupt termination of the M2 segment left MCA compatible with occlusion correlate clinica lly. 2. There is diminished enhancement of the distal margin of the right MCA to segment and trifurcation. There is some enhancement or distally within the distal vessels. Occlusion or thrombosis in the diff erential diagnosis. Correlate clinically. 3. There is atherosclerotic plaque involving the carotid bifurcation bilaterally. Proximal and 60-70% stenosis involving the proximal right ICA. 4. There is pathologic adenopathy in the left submandibular region correlate clinically. 5. There is abrupt termination of the left posterior cerebral artery in the distribution of previous infarct. This suggest occlusion.
[2018-10-01 13:32] LABS: Albumin 4.3 g/dL (3.5-5.0); Calcium 9.7 mg/dL (8.4-10.2); Potassium 4.3 mmol/L (3.5-5.1); Total Bilirubin 0.8 mg/dL (0.2-1.3); Total Protein 7.4 g/dL (6.3-8.2)
[2018-10-01 13:33] LABS: INR 0.9 (<1.2); Partial Thromboplastin Time 22.9 sec (22.0-30.0); Prothrombin Time 9.8 sec (9.0-12.0)
[2018-10-01 13:36] LABS: Creatine Kinase 46 U/L (30-135)
[2018-10-01 13:37] LABS: Basophils # (A) 0.1 k/uL (0-0.2); Basophils % (A) 1 %; Eosinophils # (A) 0.2 k/uL (0-0.7); Eosinophils % (A) 4 %; HGB 13.2 gm/dL (11.4-16.0); Lymphocytes # (A) 1.1 k/uL (1.0-4.8); Lymphocytes % (A) 25 %; MCH 29.1 pg (25.0-35.0); MCV 88.2 fL (80.0-100.0); Mean Platelet Volume 6.6; Monocytes # (A) 0.4 k/uL (0-1.0); Monocytes % (A) 8 %; Neutrophils # (A) 2.7 k/uL (1.3-7.7); Neutrophils % (A) 59 %; Platelet Count 229 k/uL (150-450); RBC 4.53 m/uL (3.80-5.40); RDW 15.2 % (11.5-15.5); WBC 4.6 k/uL (3.8-10.6)
[2018-10-01 13:48] LABS: Creatine Kinase MB 0.3 ng/mL (0.0-2.4); Troponin I <0.012 ng/mL (0.000-0.034)
[2018-10-01] MEDS ORDERED: ATORVASTATIN 80 MG TAB PO STA (15:08)
[2018-10-01] MEDS ORDERED: ASPIRIN 81 MG PO STA (15:08)
[2018-10-01] MEDS: CLOPIDOGREL 75 MG TAB PO STA ×2 (15:34→15:36)
[2018-10-01 15:54] VITALS: BP 201/91; PULSE 64; RESP 18
== END 2018-10-01 15:51 | disposition other institution (70) ==
LOC: EC 12:15
DX: I63.9 Cerebral infarction, unspecified (principal); R29.706 NIHSS score 6; I10 Essential (primary) hypertension; G40.909 Epilepsy, unspecified, not intractable, without status epilepticus; E07.9 Disorder of thyroid, unspecified; Z86.14 Personal history of Methicillin resistant Staphylococcus aureus infection; Z98.890 Other specified postprocedural states; Z53.29 Procedure and treatment not carried out because of patient's decision for other reasons; Z79.890 Hormone replacement therapy; Z79.82 Long term (current) use of aspirin; Z79.899 Other long term (current) drug therapy; Z88.1 Allergy status to other antibiotic agents; Z88.8 Allergy status to other drugs, medicaments and biological substances; Z88.0 Allergy status to penicillin
CPT/HCPCS: 36415; 93005; 80053; 82550; 82553; 84484; 85025; 85610; 85730; 70496; 70450; 70498; 99291; 96374; 96361 ×3; Q9967

== ENCOUNTER → 2018-11-13 | Outpatient (CLI) | payer MEDICARE ==
--- NOTE | 2018-11-13 08:49 | MR ---
EXAMINATION TYPE: MR angio head wo/neck wo/w con DATE OF EXAM: 11/13/2018 COMPARISON: CTA 10/01/2018 HISTORY: Arteriovenous malformation / Stenosis CONTRAST: None TECHNIQUE: Multiplanar multiecho imaging on a 3.0 Talia magnet is performed through the wiyot of Tian lis. 3-D [id number] imaging is performed. Source images are reviewed on the computer in the axi al plane. Reconstructed images rotating on the computer are reviewed. FINDINGS: The left internal carotid artery bifurcates normally into A1 and M1 segments. The right A1 segment is very poorly visualized on source images is not evident on reconstructed images. This can b e congenital. There is truncation of the right middle cerebral artery at the level of the bifurcation s. The A2 segments are normal. There is poor visualization of the bilateral middle cerebral artery br anches. The right middle cerebral artery branches may be patent to the M1 segment with stenosis or de creased flow within the distal M1 region at the bifurcation. Some collateral flow appears to fill ope rcular loops bilaterally. Anterior communicating artery is patent. The right posterior communicating artery is faintly patent. The left posterior communicating artery is faintly patent. Vertebrobasilar arteries within the [id number] are normal. The left posterior cerebral artery appe ars diminutive compared to the right. Note is made of an old left occipital lobe infarct. No suspicio us aneurysm or aneurysmal dilatation is evident. IMPRESSIONS: 1. Poor visualization of the middle cerebral artery branches at the bifurcations. Collateral vascular ization likely reconstitutes the opercular loops. 2. Truncation of the left posterior cerebral artery compatible with prior left occipital lobe infarct . 3. The enhancement of the vessels appears compatible with the CTA findings of 10/01/2018 EXAMINATION TYPE: MR angio head wo/neck wo/w con DATE OF EXAM: 11/13/2018 COMPARISON: 04/07/2014 HISTORY: Arteriovenous malformation / Stenosis CONTRAST: None TECHNIQUE: Multiplanar multiecho imaging on a 3.0 Talia magnet is performed through the bilateral car otid bifurcations. 3-D [id number]-[id number] imaging is performed. Source images are reviewed on the compu ter in the axial plane. Reconstructed images rotating on the computer are reviewed. Slab artifact is evident during portions of this examination. FINDINGS: There is a three-vessel arch. Bilateral carotid bifurcations appear without significant flow-limiting stenosis. Minimal plaque may be present at the left internal carotid artery without flow-limiting stenosis. No flow gap is evident suggesting this narrowing is less than 70%. This may be approaching 50-69%. Correlate with symptoms. The bilateral vertebral arteries are codominant. The right vertebral artery at the junction with basi lar artery may has some narrowing without a flow gap suggesting stenosis of less than 70%. IMPRESSIONS: 1. Left internal carotid artery origin stenosis estimated between 50 and 69%. Right internal carotid artery narrowing is less than 50%. 2. Distal right vertebral artery narrowing without a flow gap most likely in the range of 50%.
== END | disposition home or self-care (01) ==
LOC: RADMRIMAIN 07:05
PROVIDERS: ATTEND Psychiatry & Neurology Neurology
DX: I65.23 Occlusion and stenosis of bilateral carotid arteries (principal); I65.01 Occlusion and stenosis of right vertebral artery; Z86.73 Personal history of transient ischemic attack (TIA), and cerebral infarction without residual deficits
CPT/HCPCS: 70544; 70549; A9585

== ENCOUNTER 2019-01-03 10:56 | Emergency (ER) | payer MEDICARE ==
[2019-01-03 11:18] VITALS: BP 141/75; PULSE 69; RESP 18; TEMP 98
--- NOTE | 2019-01-03 11:49 | ED ---
General Adult HPI - General Chief complaint: Extremity Injury, Lower Stated complaint: Fell leg pain Time Seen by Provider: 01/03/19 11:19 Source: patient, RN notes reviewed, old records reviewed Mode of arrival: ambulatory Limitations: no limitations - History of Present Illness Initial comments: 73-year-old female presenting with chief complaint right hip pain and right knee pain status post fall which occurred approximately 3 weeks prior. Patient is currently undergoing physical therapy for sciatica and low back pain, she had the physical therapist work her right knee and hip and since that she has had increased pain with ambulation predominantly in the right knee. She has been able to with a cane. Denies any symptoms in the ankle or foot. No fever or chills. No other symptoms reported. - Related Data Home Medications Medication Instructions Recorded Confirmed LORazepam [Ativan] 0.5 mg PO BID PRN 09/10/15 10/01/18 Levothyroxine Sodium [Synthroid] 75 mcg PO QAM 09/10/15 10/01/18 Losartan Potassium 100 mg PO AC-BRKFST 09/10/15 10/01/18 OXcarbazepine [Trileptal] 300 mg PO HS 09/10/15 10/01/18 amLODIPine BESYLATE [Norvasc] 10 mg PO AC-SUPPER 09/10/15 10/01/18 Colesevelam [Welchol] 1,250 mg PO BID 05/27/17 10/01/18 Multivitamins, Thera [Multivitamin 1 tab PO DAILY 05/27/17 10/01/18 (formulary)] Aspirin EC [Ecotrin Low Dose] 81 mg PO DAILY 10/01/18 10/01/18 L.acidoph,Paracasei, B.lactis 1 cap PO DAILY 10/01/18 10/01/18 [Probiotic] Allergies Allergy/AdvReac Type Severity Reaction Status Date / Time azithromycin Allergy Unknown Verified 01/03/19 11:14 carvedilol Allergy Unknown Verified 01/03/19 11:14 clindamycin Allergy Unknown Verified 01/03/19 11:14 diltiazem Allergy Unknown Verified 01/03/19 11:14 hydrochlorothiazide Allergy Unknown Verified 01/03/19 11:14 iron Allergy Unknown Verified 01/03/19 11:14 methylprednisolone Allergy Unknown Verified 01/03/19 11:14 [From Medrol] omega-3 acid ethyl esters Allergy Unknown Verified 01/03/19 11:14 Penicillins Allergy Unknown Verified 01/03/19 11:14 ciprofloxacin [From Cipro] AdvReac SEIZURE Verified 01/03/19 11:14 LIKE ACTIVITY" metronidazole [From Flagyl] AdvReac SEIZURE Verified 01/03/19 11:14 LIKE ACTIVITY nitroglycerin AdvReac Seizure Verified 01/03/19 11:14 with Patch Review of Systems ROS Statement: Those systems with pertinent positive or pertinent negative responses have been documented in the HPI. ROS Other: All systems not noted in ROS Statement are negative. 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 Past Anesthesia/Blood Transfusion Reactions: No Reported Reaction Past Psychological History: No Psychological Hx Reported Smoking Status: Never smoker Past Alcohol Use History: None Reported Past Drug Use History: None Reported - Past Family History Mother Family Medical History: Congestive Heart Failure (CHF), Dementia, Renal Disease Additional Family Medical History / Comment(s): in her 90s Father Family Medical History: Myocardial Infarction (MD) General Exam Limitations: no limitations General appearance: alert, in no apparent distress Head exam: Present: atraumatic, normocephalic Eye exam: Present: normal appearance, PERRL ENT exam: Present: normal exam Neck exam: Present: normal inspection. Absent: tenderness, meningismus Respiratory exam: Absent: respiratory distress Cardiovascular Exam: Present: regular rate, normal rhythm GI/Abdominal exam: Present: soft. Absent: distended, tenderness Extremities exam: Present: full ROM, tenderness (Tenderness on the medial knee. Normal range of motion both right knee and hip), normal capillary refill, joint swelling (Minimal right knee effusion), other (2+ pedal pulses on the right.). Absent: pedal edema Neurological exam: Present: alert, oriented X3, CN II-XII intact Psychiatric exam: Present: normal affect, normal mood Skin exam: Present: warm, dry, intact Course Vital Signs 01/03/19 11:14 Temperature 98.0 F Pulse Rate 69 Respiratory 18 Rate Blood Pressure 141/75 O2 Sat by Pulse 94 L Oximetry Medical Decision Making - Medical Decision Making 73-year-old with right knee and right hip pain. Mild swelling on exam. X-rays obtained of both right hip and the right knee, negative for fracture dislocation. She has mild osteoarthritis right hip. Right knee is well- appearing joint space intact. No effusion. Patient will continue symptomatic treatment, she will rest. She will follow-up with the primary care physician if symptoms persist may require further imaging including MRI. Disposition Clinical Impression: Contusion of knee, right Disposition: HOME SELF-CARE Condition: Good Instructions (If sedation given, give patient instructions): Knee Pain (ED), Contusion in Adults (ED) Is patient prescribed a controlled substance at d/c from ED?: No Referrals: Nate Melo MD [Primary Care Provider] - 1-2 days Time of Disposition: 12:30
--- NOTE | 2019-01-03 12:09 | XR ---
EXAMINATION TYPE: XR knee complete RT , 3 VIEWS DATE OF EXAM ORDERED: 01/03/2019 HISTORY: fall. COMPARISON: None. FINDINGS: No fracture, dislocation or knee joint effusion is seen. IMPRESSION: NO ACUTE OSSEOUS LESION.
--- NOTE | 2019-01-03 12:10 | XR ---
EXAMINATION TYPE: XR Hip Complete RT , 2 VIEWS DATE OF EXAM ORDERED: 01/03/2019 HISTORY: fall. COMPARISON: None. FINDINGS: There are mild degenerative changes within the hip joint. No fracture or dislocation is se en. Surrounding pelvic structures are unremarkable. IMPRESSION: NO ACUTE OSSEOUS LESION.
== END 2019-01-03 12:50 | disposition home or self-care (01) ==
LOC: EC 10:56
DX: S80.01XA Contusion of right knee, initial encounter (principal); M16.11 Unilateral primary osteoarthritis, right hip; M54.40 Lumbago with sciatica, unspecified side; I10 Essential (primary) hypertension; E07.9 Disorder of thyroid, unspecified; G40.909 Epilepsy, unspecified, not intractable, without status epilepticus; Z88.0 Allergy status to penicillin; Z88.1 Allergy status to other antibiotic agents; Z88.8 Allergy status to other drugs, medicaments and biological substances; Z79.82 Long term (current) use of aspirin; Z79.890 Hormone replacement therapy; Z79.899 Other long term (current) drug therapy; Z86.73 Personal history of transient ischemic attack (TIA), and cerebral infarction without residual deficits; W19.XXXA Unspecified fall, initial encounter
CPT/HCPCS: 73502; 99284

== ENCOUNTER 2019-12-02 17:16 | Inpatient (IN) | payer MEDICARE ==
--- NOTE | 2019-12-02 17:47 | ED ---
Recheck HPI - General Chief Complaint: Headache Stated Complaint: Hypertension Time Seen by Provider: 12/02/19 17:33 Source: patient, RN notes reviewed, old records reviewed Mode of arrival: ambulatory Limitations: no limitations - History of Present Illness Initial Comments: This is a 74-year-old female DF for evaluation patient is multiple complaints today uncontrolled blood pressure headache fatigue and chest pain. Patient admits chest pain the last few days but mainly present in with headache today. Patient admits to some somnolence lack of activity level. Does suffer from history of high blood pressure has a history of stroke and TIA, had history of brain surgery secondary to an AVM. MD Complaint: other (Not feeling well with her blood pressure and headache) -: days(s) Returns Today for: persistent/worsening pain related to initial visit Symptoms Since Prior Visit: worsening pain Associated Symptoms: none - Related Data Home Medications Medication Instructions Recorded Confirmed LORazepam [Ativan] 0.5 mg PO BID PRN 09/10/15 12/02/19 Levothyroxine Sodium [Synthroid] 75 mcg PO QAM 09/10/15 12/02/19 Losartan Potassium 100 mg PO DAILY 09/10/15 12/02/19 OXcarbazepine [Trileptal] 300 mg PO BID 09/10/15 12/02/19 amLODIPine BESYLATE [Norvasc] 10 mg PO DAILY 09/10/15 12/02/19 Colesevelam [Welchol] 1,875 mg PO AC-TID 05/27/17 12/02/19 Multivitamins, Thera [Multivitamin 1 tab PO DAILY 05/27/17 12/02/19 (formulary)] Aspirin EC [Ecotrin] 325 mg PO DAILY 12/02/19 12/02/19 [place]-3 Fatty Acids/Fish Oil [Fish 1 cap PO DAILY 12/02/19 12/02/19 Oil 1,000 mg Softgel] Allergies Allergy/AdvReac Type Severity Reaction Status Date / Time azithromycin Allergy Unknown Verified 12/02/19 19:30 carvedilol Allergy Unknown Verified 12/02/19 19:30 clindamycin Allergy Unknown Verified 12/02/19 19:30 diltiazem Allergy Unknown Verified 12/02/19 19:30 hydrochlorothiazide Allergy Unknown Verified 12/02/19 19:30 iron Allergy Unknown Verified 12/02/19 19:30 methylprednisolone Allergy Unknown Verified 12/02/19 19:30 [From Medrol] omega-3 acid ethyl esters Allergy Unknown Verified 12/02/19 19:30 Penicillins Allergy Unknown Verified 12/02/19 19:30 ciprofloxacin [From Cipro] AdvReac SEIZURE Verified 12/02/19 19:30 LIKE ACTIVITY" metronidazole [From Flagyl] AdvReac SEIZURE Verified 12/02/19 19:30 LIKE ACTIVITY nitroglycerin AdvReac Seizure Verified 12/02/19 19:30 with Patch Review of Systems ROS Statement: Those systems with pertinent positive or pertinent negative responses have been documented in the HPI. ROS Other: All systems not noted in ROS Statement are negative. 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 Past Anesthesia/Blood Transfusion Reactions: No Reported Reaction Past Psychological History: No Psychological Hx Reported Past Alcohol Use History: None Reported Past Drug Use History: None Reported - Past Family History Mother Family Medical History: Congestive Heart Failure (CHF), Dementia, Renal Disease Additional Family Medical History / Comment(s): in her 90s Father Family Medical History: Myocardial Infarction (AR) General Exam Limitations: no limitations General appearance: alert, in no apparent distress Head exam: Present: atraumatic, normocephalic, normal inspection Eye exam: Present: normal appearance, PERRL, EOMI. Absent: scleral icterus, conjunctival injection, periorbital swelling ENT exam: Present: normal exam, mucous membranes moist Neck exam: Present: normal inspection. Absent: tenderness, meningismus, lymphadenopathy Respiratory exam: Present: normal lung sounds bilaterally. Absent: respiratory distress, wheezes, rales, rhonchi, stridor Cardiovascular Exam: Present: regular rate, normal rhythm, normal heart sounds. Absent: systolic murmur, diastolic murmur, rubs, gallop, clicks GI/Abdominal exam: Present: soft, normal bowel sounds. Absent: distended, tenderness, guarding, rebound, rigid Extremities exam: Present: normal inspection, full ROM, normal capillary refill. Absent: tenderness, pedal edema, joint swelling, calf tenderness Back exam: Present: normal inspection Neurological exam: Present: alert, oriented X3, CN II-XII intact Psychiatric exam: Present: normal affect, normal mood Skin exam: Present: warm, dry, intact, normal color. Absent: rash Course Vital Signs 12/02/19 12/02/19 17:23 19:05 Temperature 98.4 F Pulse Rate 84 72 Respiratory 18 18 Rate Blood Pressure 188/68 117/67 O2 Sat by Pulse 100 99 Oximetry - Reevaluation(s) Reevaluation #1: 12/02/19 19:49 Medical record is reviewed Reevaluation #2: 12/02/19 19:49 Patient has improved headache or pain control, blood pressure is mildly improved Reevaluation #3: 12/02/19 19:49 Patient informed of results here in the ER need for admission for cardiology evaluation - Consultations Consultation #1: Spoke with Dr. Melo agrees to admit this patient Medical Decision Making - Medical Decision Making 74-year-old female for multiple complaints headache elevated blood pressure and occasional chest pain. Patient be admitted for cardiac evaluation secondary elevated troponin 0.4 - Lab Data Result diagrams: 12/02/19 17:55 12/02/19 17:55 Lab Results 12/02/19 12/02/19 12/02/19 Range/Units 17:55 17:55 17:55 WBC 5.7 (3.8-10.6) k/uL RBC 5.07 (3.80-5.40) m/uL Hgb 15.2 (11.4-16.0) gm/dL Hct 45.2 (34.0-46.0) % MCV 89.1 (80.0-100.0) fL MCH 30.0 (25.0-35.0) pg MCHC 33.7 (31.0-37.0) g/dL RDW 13.4 (11.5-15.5) % Plt Count 195 (150-450) k/uL Neutrophils % 84 % Lymphocytes % 7 % Monocytes % 6 % Eosinophils % 1 % Basophils % 1 % Neutrophils # 4.8 (1.3-7.7) k/uL Lymphocytes # 0.4 L (1.0-4.8) k/uL Monocytes # 0.3 (0-1.0) k/uL Eosinophils # 0.1 (0-0.7) k/uL Basophils # 0.0 (0-0.2) k/uL Sodium 131 L (137-145) mmol/L Potassium 3.8 (3.5-5.1) mmol/L Chloride 98 (98-107) mmol/L Carbon Dioxide 24 (22-30) mmol/L Anion Gap 9 mmol/L BUN 22 H (7-17) mg/dL Creatinine 0.77 (0.52-1.04) mg/dL Est GFR (CKD-EPI)AfAm 88 (>60 ml/min/1.73 sqM) Est GFR (CKD-EPI)NonAf 76 (>60 ml/min/1.73 sqM) Glucose 115 H (74-99) mg/dL Calcium 9.7 (8.4-10.2) mg/dL Phosphorus 3.0 (2.5-4.5) mg/dL Magnesium 1.8 (1.6-2.3) mg/dL Total Bilirubin 0.8 (0.2-1.3) mg/dL AST 36 (14-36) U/L ALT 27 (4-34) U/L Alkaline Phosphatase 116 (38-126) U/L Troponin I (0.000-0.034) ng/mL NT-Pro-B Natriuret Pep pg/mL Total Protein 7.4 (6.3-8.2) g/dL Albumin 4.4 (3.5-5.0) g/dL Urine Color Yellow Urine Appearance Clear (Clear) Urine pH 5.0 (5.0-8.0) Ur Specific [place] 1.022 (1.001-1.035) Urine Protein Negative (Negative) Urine Glucose (UA) Negative (Negative) Urine Ketones 2+ H (Negative) Urine Blood Trace H (Negative) Urine Nitrite Negative (Negative) Urine Bilirubin Negative (Negative) Urine Urobilinogen <2.0 (<2.0) mg/dL Ur Leukocyte Esterase Negative (Negative) Urine RBC 5 (0-5) /hpf Urine WBC 2 (0-5) /hpf Hyaline Casts 1 (0-2) /lpf Urine Mucus Occasional H (None) /hpf 12/02/19 12/02/19 Range/Units 17:55 17:55 WBC (3.8-10.6) k/uL RBC (3.80-5.40) m/uL Hgb (11.4-16.0) gm/dL Hct (34.0-46.0) % MCV (80.0-100.0) fL MCH (25.0-35.0) pg MCHC (31.0-37.0) g/dL RDW (11.5-15.5) % Plt Count (150-450) k/uL Neutrophils % % Lymphocytes % % Monocytes % % Eosinophils % % Basophils % % Neutrophils # (1.3-7.7) k/uL Lymphocytes # (1.0-4.8) k/uL Monocytes # (0-1.0) k/uL Eosinophils # (0-0.7) k/uL Basophils # (0-0.2) k/uL Sodium (137-145) mmol/L Potassium (3.5-5.1) mmol/L Chloride (98-107) mmol/L Carbon Dioxide (22-30) mmol/L Anion Gap mmol/L BUN (7-17) mg/dL Creatinine (0.52-1.04) mg/dL Est GFR (CKD-EPI)AfAm (>60 ml/min/1.73 sqM) Est GFR (CKD-EPI)NonAf (>60 ml/min/1.73 sqM) Glucose (74-99) mg/dL Calcium (8.4-10.2) mg/dL Phosphorus (2.5-4.5) mg/dL Magnesium (1.6-2.3) mg/dL Total Bilirubin (0.2-1.3) mg/dL AST (14-36) U/L ALT (4-34) U/L Alkaline Phosphatase (38-126) U/L Troponin I 0.402 H* (0.000-0.034) ng/mL NT-Pro-B Natriuret Pep 374 pg/mL Total Protein (6.3-8.2) g/dL Albumin (3.5-5.0) g/dL Urine Color Urine Appearance (Clear) Urine pH (5.0-8.0) Ur Specific [place] (1.001-1.035) Urine Protein (Negative) Urine Glucose (UA) (Negative) Urine Ketones (Negative) Urine Blood (Negative) Urine Nitrite (Negative) Urine Bilirubin (Negative) Urine Urobilinogen (<2.0) mg/dL Ur Leukocyte Esterase (Negative) Urine RBC (0-5) /hpf Urine WBC (0-5) /hpf Hyaline Casts (0-2) /lpf Urine Mucus (None) /hpf - EKG Data -: EKG Interpreted by Me (EKG sinus rhythm of 77 NE 158 QRS 90 QTC 459) - Radiology Data Radiology results: report reviewed (CT brain and chest x-ray negative for acute disease), image reviewed Critical Care Time Critical Care Time: Yes Total Critical Care Time: 31 Disposition Clinical Impression: Headache, Chest pain, NSTEMI (non-ST elevated myocardial infarction) Disposition: ADMITTED IP TO THIS [facility] Condition: Serious Is patient prescribed a controlled substance at d/c from ED?: No Referrals: Nate Melo MD [Primary Care Provider] - 1-2 days
[2019-12-02 18:10] LABS: Basophils % (A) 1 %; Eosinophils # (A) 0.1 k/uL (0-0.7); Eosinophils % (A) 1 %; HCT 45.2 % (34.0-46.0); HGB 15.2 gm/dL (11.4-16.0); Lymphocytes # (A) 0.4 k/uL (1.0-4.8); Lymphocytes % (A) 7 %; MCHC 33.7 g/dL (31.0-37.0); MCV 89.1 fL (80.0-100.0); Mean Platelet Volume 6.5; Monocytes # (A) 0.3 k/uL (0-1.0); Monocytes % (A) 6 %; Neutrophils # (A) 4.8 k/uL (1.3-7.7); Neutrophils % (A) 84 %; Platelet Count 195 k/uL (150-450); RBC 5.07 m/uL (3.80-5.40); RDW 13.4 % (11.5-15.5); WBC 5.7 k/uL (3.8-10.6)
[2019-12-02] MEDS ORDERED: MORPHINE SULFATE 4 MG/ML SYRINGE IVP STA (18:12)
[2019-12-02] MEDS ORDERED: ONDANSETRON 4 MG/2 ML VIAL IVP STA (18:12)
[2019-12-02 18:29] LABS: Albumin 4.4 g/dL (3.5-5.0); Calcium 9.7 mg/dL (8.4-10.2); Magnesium 1.8 mg/dL (1.6-2.3); Potassium 3.8 mmol/L (3.5-5.1); Total Bilirubin 0.8 mg/dL (0.2-1.3); Total Protein 7.4 g/dL (6.3-8.2)
[2019-12-02 18:40] LABS: Appearance,Urine Clear (Clear); Bilirubin,Urine Negative (Negative); Blood,Urine Trace (Negative); Color,Urine Yellow; Glucose,Urine (UA) Negative (Negative); Hyaline Casts,Urine 1 /lpf (0-2); Ketones,Urine 2+ (Negative); Leukocyte Esterase,Urine Negative (Negative); Mucus,Urine Occasional /hpf; Nitrite,Urine Negative (Negative); Protein,Urine Negative (Negative); RBC,Urine 5 /hpf (0-5); Specific Gravity,Urine 1.022 (1.001-1.035); Urobilinogen,Urine <2.0 mg/dL (<2.0); WBC,Urine 2 /hpf (0-5)
--- NOTE | 2019-12-02 19:06 | CT ---
EXAMINATION: CT brain wo con DATE AND TIME: 12/02/2019 6:44 PM CLINICAL INDICATION: Headache TECHNIQUE: Standard departmental protocol. DLP: 1068.4 mGy-cm COMPARISON: CT 10/01/2018 FINDINGS: The calvarium is intact. There is no intracranial hemorrhage. There is no intracranial mass or mass effect. No definite new intra-axial or extra-axial attenuation defect. The previously seen left occipital temporal and posterior left parietal lobe encephalomalacia is unch anged. The paranasal sinuses, middle ear cavities, and mastoid sinus air cells are clear. The orbits are unremarkable. IMPRESSION: NO ACUTE PROCESS.
[2019-12-02] MEDS ORDERED: ASPIRIN 81 MG PO STA (19:45)
[2019-12-02] MEDS ORDERED: NITROGLYCERIN SL TABS 0.4 MG TAB SUBLINGUAL PRN (19:45)
[2019-12-02] MEDS ORDERED: MORPHINE SULFATE 4 MG/ML SYRINGE IV PRN (19:45)
[2019-12-02] MEDS ORDERED: HEPARIN SOD,PORK IN 0.45% NACL 25,000 UNIT in 0.45% NACL 1 250ML.BAG IV SCH (22:30)
[2019-12-02] MEDS ORDERED: HEPARIN SODIUM,PORCINE 5,000 UNIT/ML 1 ML VIAL IV PRN (22:30)
[2019-12-02 23:34] LABS: Basophils % (A) 1 %; Eosinophils % (A) 0 %; HCT 41.9 % (34.0-46.0); HGB 14.3 gm/dL (11.4-16.0); Lymphocytes # (A) 0.5 k/uL (1.0-4.8); Lymphocytes % (A) 10 %; MCH 31.5 pg (25.0-35.0); MCHC 34.2 g/dL (31.0-37.0); MCV 92.1 fL (80.0-100.0); Mean Platelet Volume 6.7; Monocytes # (A) 0.4 k/uL (0-1.0); Monocytes % (A) 7 %; Neutrophils # (A) 4.2 k/uL (1.3-7.7); Neutrophils % (A) 80 %; Platelet Count 184 k/uL (150-450); RBC 4.55 m/uL (3.80-5.40); WBC 5.3 k/uL (3.8-10.6)
[2019-12-02 23:40] LABS: Partial Thromboplastin Time 24.7 sec (22.0-30.0); Prothrombin Time 10.1 sec (9.0-12.0)
[2019-12-03] MEDS: OXcarbazepine 300 MG TAB PO SCH ×3 (00:15→19:51)
[2019-12-03] MEDS: ACETAMINOPHEN TAB 325 MG TAB PO PRN ×2 (00:22→23:44)
[2019-12-03] MEDS: METOPROLOL TARTRATE 50 MG TAB PO SCH ×3 (00:22→19:51)
[2019-12-03 06:14] LABS: Basophils % (A) 1 %; Eosinophils # (A) 0.1 k/uL (0-0.7); Eosinophils % (A) 2 %; HGB 12.9 gm/dL (11.4-16.0); Lymphocytes # (A) 0.9 k/uL (1.0-4.8); Lymphocytes % (A) 19 %; MCH 29.7 pg (25.0-35.0); Mean Platelet Volume 6.9; Monocytes # (A) 0.3 k/uL (0-1.0); Monocytes % (A) 7 %; Neutrophils # (A) 3.2 k/uL (1.3-7.7); Neutrophils % (A) 69 %; Platelet Count 177 k/uL (150-450); RBC 4.34 m/uL (3.80-5.40); RDW 13.5 % (11.5-15.5); WBC 4.6 k/uL (3.8-10.6)
[2019-12-03 06:49] LABS: Cholesterol 175 mg/dL (<200); HDL Cholesterol 29 mg/dL (40-60); LDL Cholesterol,Calculated 121 mg/dL (0-99); Triglycerides 125 mg/dL (<150)
--- NOTE | 2019-12-03 08:17 | P.HPIM ---
History of Present Illness H&P Date: 12/03/19 Chief Complaint: visual distortion This is a history of physical 74-year-old white female with history of epilepsy and history of migraines who came in to my office yesterday with shortness of breath. EKG today show anterior T-wave inversion and she was scheduled for stress testing. However shortly after she went home she had worsening visual distortion and headache. The patient was then told to go to the emergency room and found to have slightly elevated troponin but normal computed tomography scan of the head. She is now admitted for appropriate evaluation for enzymatic elevation. She is a nonsmoker. 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 Review of Systems Constitutional: Denies chills, Denies fever Eyes: denies blurred vision, denies pain Ears, nose, mouth and throat: Denies headache, Denies sore throat Cardiovascular: Reports chest pain, Reports shortness of breath Gastrointestinal: Denies abdominal pain, Denies diarrhea, Denies nausea, Denies vomiting Genitourinary: Denies dysuria, Denies hematuria Past Medical History Past Medical History: CVA/TIA, Hypertension, Seizure Disorder, Thyroid Disorder Additional Past Medical History / Comment(s): TIA , BLOOD IN STOOL, CYST ON KIDNEY ON XRAY", back pain, COLITIS DX AT AGE 25 History of Any Multi-Drug Resistant Organisms: None Reported Past Surgical History: Hysterectomy Additional Past Surgical History / Comment(s): 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 Past Anesthesia/Blood Transfusion Reactions: No Reported Reaction Past Psychological History: No Psychological Hx Reported Smoking Status: Never smoker Past Alcohol Use History: None Reported Past Drug Use History: None Reported - Past Family History Mother Family Medical History: Congestive Heart Failure (CHF), Dementia, Renal Disease Additional Family Medical History / Comment(s): in her 90s Father Family Medical History: Coronary Artery Disease (CAD) Medications and Allergies Home Medications Medication Instructions Recorded Confirmed Type LORazepam [Ativan] 0.5 mg PO BID PRN 09/10/15 12/02/19 History Levothyroxine Sodium [Synthroid] 75 mcg PO QAM 09/10/15 12/02/19 History Losartan Potassium 100 mg PO DAILY 09/10/15 12/02/19 History OXcarbazepine [Trileptal] 300 mg PO BID 09/10/15 12/02/19 History amLODIPine BESYLATE [Norvasc] 10 mg PO DAILY 09/10/15 12/02/19 History Colesevelam [Welchol] 1,875 mg PO AC-TID 05/27/17 12/02/19 History Multivitamins, Thera [Multivitamin 1 tab PO DAILY 05/27/17 12/02/19 History (formulary)] Aspirin EC [Ecotrin] 325 mg PO DAILY 12/02/19 12/02/19 History [place]-3 Fatty Acids/Fish Oil [Fish 1 cap PO DAILY 12/02/19 12/02/19 History Oil 1,000 mg Softgel] Allergies Allergy/AdvReac Type Severity Reaction Status Date / Time azithromycin Allergy Unknown Verified 12/02/19 19:30 carvedilol Allergy Unknown Verified 12/02/19 19:30 clindamycin Allergy Unknown Verified 12/02/19 19:30 diltiazem Allergy Unknown Verified 12/02/19 19:30 hydrochlorothiazide Allergy Unknown Verified 12/02/19 19:30 iron Allergy Unknown Verified 12/02/19 19:30 methylprednisolone Allergy Unknown Verified 12/02/19 19:30 [From Medrol] omega-3 acid ethyl esters Allergy Unknown Verified 12/02/19 19:30 Penicillins Allergy Unknown Verified 12/02/19 19:30 ciprofloxacin [From Cipro] AdvReac SEIZURE Verified 12/02/19 19:30 LIKE ACTIVITY" metronidazole [From Flagyl] AdvReac SEIZURE Verified 12/02/19 19:30 LIKE ACTIVITY nitroglycerin AdvReac Seizure Verified 12/02/19 19:30 with Patch Physical Exam Vitals: Vital Signs Temp Pulse Pulse Resp BP BP Pulse Ox 12/03/19 04:00 98.2 F 60 18 122/59 95 12/03/19 00:00 98.2 F 73 18 127/59 94 L 12/02/19 22:00 98.3 F 80 18 160/69 98 12/02/19 20:16 98.3 F 87 16 143/50 100 12/02/19 20:05 98.3 F 80 18 160/69 98 12/02/19 19:05 72 18 117/67 99 12/02/19 17:23 98.4 F 84 18 188/68 100 Intake and Output 12/02/19 12/03/19 12/03/19 22:59 06:59 14:59 Other: Voiding Method Toilet Toilet # Voids 1 Weight 91.172 kg 90.6 kg - Constitutional General appearance: no acute distress - EENT Eyes: EOMI - Neck Neck: no lymphadenopathy - Respiratory Respiratory: bilateral: CTA - Cardiovascular Rhythm: regular Heart sounds: normal: S1, S2 Abnormal Heart Sounds: no S3 Gallop - Gastrointestinal General gastrointestinal: soft, no tenderness - Musculoskeletal Musculoskeletal: gait normal - Psychiatric Psychiatric: A&O x's 3 Results CBC & Chem 7: 12/03/19 06:01 12/02/19 17:55 Labs: Abnormal Lab Results - Last 24 Hours (Table) 12/02/19 12/02/19 12/02/19 Range/Units 17:55 17:55 17:55 Lymphocytes # 0.4 L (1.0-4.8) k/uL APTT (22.0-30.0) sec Sodium 131 L (137-145) mmol/L BUN 22 H (7-17) mg/dL Glucose 115 H (74-99) mg/dL Troponin I (0.000-0.034) ng/mL LDL Cholesterol, Calc (0-99) mg/dL HDL Cholesterol (40-60) mg/dL Urine Ketones 2+ H (Negative) Urine Blood Trace H (Negative) Urine Mucus Occasional H (None) /hpf 12/02/19 12/02/19 12/02/19 Range/Units 17:55 21:03 22:39 Lymphocytes # 0.5 L (1.0-4.8) k/uL APTT (22.0-30.0) sec Sodium (137-145) mmol/L BUN (7-17) mg/dL Glucose (74-99) mg/dL Troponin I 0.402 H* 0.338 H* (0.000-0.034) ng/mL LDL Cholesterol, Calc (0-99) mg/dL HDL Cholesterol (40-60) mg/dL Urine Ketones (Negative) Urine Blood (Negative) Urine Mucus (None) /hpf 12/03/19 12/03/19 12/03/19 Range/Units 00:37 06:01 06:01 Lymphocytes # (1.0-4.8) k/uL APTT 49.5 H (22.0-30.0) sec Sodium (137-145) mmol/L BUN (7-17) mg/dL Glucose (74-99) mg/dL Troponin I 0.396 H* (0.000-0.034) ng/mL LDL Cholesterol, Calc 121 H (0-99) mg/dL HDL Cholesterol 29 L (40-60) mg/dL Urine Ketones (Negative) Urine Blood (Negative) Urine Mucus (None) /hpf 12/03/19 Range/Units 06:01 Lymphocytes # 0.9 L (1.0-4.8) k/uL APTT (22.0-30.0) sec Sodium (137-145) mmol/L BUN (7-17) mg/dL Glucose (74-99) mg/dL Troponin I (0.000-0.034) ng/mL LDL Cholesterol, Calc (0-99) mg/dL HDL Cholesterol (40-60) mg/dL Urine Ketones (Negative) Urine Blood (Negative) Urine Mucus (None) /hpf Thrombosis Risk Factor Assmnt - Choose All That Apply Each Risk Factor Represents 2 Points: Age 61-74 years Thrombosis Risk Factor Assessment Total Risk Factor Score: 2 Thrombosis Risk Factor Assessment Level: Low Risk Assessment and Plan (1) Chest pain Current Visit: Yes Status: Acute Code(s): R07.9 - CHEST PAIN, UNSPECIFIED SNOMED Code(s): 13493866 (2) NSTEMI (non-ST elevated myocardial infarction) Current Visit: Yes Status: Acute Code(s): I21.4 - NON-ST ELEVATION (NSTEMI) MYOCARDIAL INFARCTION SNOMED Code(s): 32281395 (3) TIA (transient ischemic attack) Current Visit: No Status: Acute Code(s): G45.9 - TRANSIENT CEREBRAL ISCHEMIC ATTACK, UNSPECIFIED SNOMED Code(s): 417198816 Plan: Rule out myocardial infraction. [employer] consulted. Reconcile home medications. Brain CT is nominal for any new CVA or mass. Dr. Sheppard's group will be covering for the weekend. Anticipate discharge once cleared by cardiology. Continue heparin drip
[2019-12-03] MEDS: ATORVASTATIN 80 MG TAB PO SCH (08:48)
[2019-12-03] MEDS ORDERED: ASPIRIN 325 MG TAB PO SCH (09:00)
[2019-12-03] MEDS ORDERED: ALPRAZolam 0.25 MG TAB PO PRN (09:23)
[2019-12-03] MEDS ORDERED: SODIUM CHLORIDE 0.9% 1,000 ML in EMPTY BAG 1 BAG IV ONE (09:23)
[2019-12-03] MEDS ORDERED: ALPRAZolam 0.5 MG TAB PO PRN (09:23)
[2019-12-03] MEDS: LOSARTAN 50 MG TAB PO SCH (09:38)
--- NOTE | 2019-12-03 10:04 | P.CRDCN ---
History of Present Illness History of present illness: HISTORY OF PRESENTING ILLNESS This is a pleasant 74-year-old female past medical history significant for hypertension, peripheral vascular disease with carotid stenosis, ulcerative colitis, history of AV malformation status post brain surgery 2000 and history of seizures in the past. She follows in the office with Dr. Ward. We have been asked to see in consultation for chest pain. She states for the previous few months she has been noticing increasing and more frequent chest discomfort. She states she noticed it first at the beginning, when she would take a walk around her block she would feel discomfort in her chest that would persist until she got home and stopped walking. Her symptoms were infrequent and not at rest so she altered her typical activity to avoid strenuous work. However in the previous couple of days she has noticed more persistent chest discomfort. It started coming with no specific aggravating factor. At times she noticed it after she ate and she thought that it was related to indigestion. She saw her primary care physician, set up to undergo a stress test next week. However yesterday afternoon she had an intense episode of discomfort in the midsternal region described as a pressure associated with nausea and shortness of breath prompting her to come to the hospital for further evaluation. She is seen and examined with her at the bedside currently chest pain-free. DIAGNOSTICS EKG reveals sinus mechanism T-wave inversions in the precordial leads, change from previous EKG in 2019. Laboratory reviewed, CBC unremarkable, sodium 131, potassium 3.8, creatinine 0.77, magnesium 1.8, troponin 0.402, 0.338, 0.396, and T proBNP 374, LDL 121 and HDL 29. Current cardiac medications include aspirin 325 mg daily, losartan 100 mg daily and amlodipine 10 mg daily. Most recent stress test July 2018 was a Cardiolite stress test that was negative for reversible cardiac ischemia. Most recent echocardiogram obtained July 2018 revealed preserved LV systolic function with ejection fraction 55-60%. REVIEW OF SYSTEMS At the time of my exam: CONSTITUTIONAL: Denies fever or chills. CARDIOVASCULAR: Denies chest pain, shortness of breath, orthopnea, PND or palpitations. RESPIRATORY: Denies cough. GASTROINTESTINAL: Denies abdominal pain, diarrhea, constipation, nausea or vomiting. MUSCULOSKELETAL: Denies myalgias. NEUROLOGIC: Denies numbness, tingling or weakness. ENDOCRINE: Denies fatigue, weight change, polydipsia or polyurina. GENITOURINARY: Denies burning, hematuria or urgency with micturation. HEMATOLOGIC: Denies history of anemia or bleeding. PHYSICAL EXAMINATION Blood pressure 120/58 heart rate 52 afebrile and maintaining oxygen saturation on room air. CONSTITUTIONAL: No apparent distress. HEENT: Head is normocephalic. Pupils are equal, round. Sclerae anicteric. Mucous membranes of the mouth are moist. No JVD. No carotid bruit. CHEST EXAMINATION: Lungs are clear to auscultation. No chest wall tenderness is noted on palpation or with deep breathing. HEART EXAMINATION: Regular rate and rhythm. S1, S2 heard. No murmurs, gallops or rub. ABDOMEN: Soft, nontender. Positive bowel sounds. EXTREMITIES: 2+ peripheral pulses, no lower extremity edema and no calf tenderness. NEUROLOGIC EXAMINATION: Patient is awake, alert and oriented x3. ASSESSMENT Non-ST elevated myocardial infarction Unstable angina Hypertension Peripheral vascular disease History of ulcerative colitis History of AV malformation status post brain surgery 2000 PLAN Troponins seemed to be trending down indicating possible infarction 2 days ago when she first experienced chest pain. Recommend proceeding with cardiac catheterization. I have discussed the risks, benefits and alternative therapies for the above-mentioned procedure and for both sedation/analgesia as well as necessary blood product administration, if indicated, as they pertain to this patient. The patient has indicated understanding and acceptance of the risks and procedures discussed. Questions have been answered appropriately and she is agreeable to move forward with the above-stated procedure. Obtain 2-D echocardiogram and Doppler study to assess cardiac structure and function. Further recommendations to follow based upon clinical course. Thank you kindly for this consultation. Nurse Practitioner note has been reviewed, I agree with a documented findings and plan of care. Patient was seen and examined. Past Medical History Past Medical History: CVA/TIA, Hypertension, Seizure Disorder, Thyroid Disorder Additional Past Medical History / Comment(s): TIA , BLOOD IN STOOL, CYST ON K IDNEY ON XRAY", back pain, COLITIS DX AT AGE 25 History of Any Multi-Drug Resistant Organisms: None Reported Past Surgical History: Hysterectomy Additional Past Surgical History / Comment(s): Brain surgery 12/2000-found AVM-n o tumor Past Anesthesia/Blood Transfusion Reactions: No Reported Reaction Past Psychological History: No Psychological Hx Reported Smoking Status: Never smoker Past Alcohol Use History: None Reported Past Drug Use History: None Reported - Past Family History Mother Family Medical History: Congestive Heart Failure (CHF), Dementia, Renal Disease Additional Family Medical History / Comment(s): in her 90s Father Family Medical History: Coronary Artery Disease (CAD) Medications and Allergies Home Medications Medication Instructions Recorded Confirmed Type LORazepam [Ativan] 0.5 mg PO BID PRN 09/10/15 12/02/19 History Levothyroxine Sodium [Synthroid] 75 mcg PO QAM 09/10/15 12/02/19 History Losartan Potassium 100 mg PO DAILY 09/10/15 12/02/19 History OXcarbazepine [Trileptal] 300 mg PO BID 09/10/15 12/02/19 History amLODIPine BESYLATE [Norvasc] 10 mg PO DAILY 09/10/15 12/02/19 History Colesevelam [Welchol] 1,875 mg PO AC-TID 05/27/17 12/02/19 History Multivitamins, Thera [Multivitamin 1 tab PO DAILY 05/27/17 12/02/19 History (formulary)] Aspirin EC [Ecotrin] 325 mg PO DAILY 12/02/19 12/02/19 History [place]-3 Fatty Acids/Fish Oil [Fish 1 cap PO DAILY 12/02/19 12/02/19 History Oil 1,000 mg Softgel] Allergies Allergy/AdvReac Type Severity Reaction Status Date / Time azithromycin Allergy Unknown Verified 12/02/19 19:30 carvedilol Allergy Unknown Verified 12/02/19 19:30 clindamycin Allergy Unknown Verified 12/02/19 19:30 diltiazem Allergy Unknown Verified 12/02/19 19:30 hydrochlorothiazide Allergy Unknown Verified 12/02/19 19:30 iron Allergy Unknown Verified 12/02/19 19:30 methylprednisolone Allergy Unknown Verified 12/02/19 19:30 [From Medrol] omega-3 acid ethyl esters Allergy Unknown Verified 12/02/19 19:30 Penicillins Allergy Unknown Verified 12/02/19 19:30 ciprofloxacin [From Cipro] AdvReac SEIZURE Verified 12/02/19 19:30 LIKE ACTIVITY" metronidazole [From Flagyl] AdvReac SEIZURE Verified 12/02/19 19:30 LIKE ACTIVITY nitroglycerin AdvReac Seizure Verified 12/02/19 19:30 with Patch Physical Exam Vitals: Vital Signs Temp Pulse Pulse Resp BP BP Pulse Ox 12/03/19 08:00 96.2 F L 52 L 16 120/58 98 12/03/19 04:00 98.2 F 60 18 122/59 95 12/03/19 00:00 98.2 F 73 18 127/59 94 L 12/02/19 22:00 98.3 F 80 18 160/69 98 12/02/19 20:16 98.3 F 87 16 143/50 100 12/02/19 20:05 98.3 F 80 18 160/69 98 12/02/19 19:05 72 18 117/67 99 12/02/19 17:23 98.4 F 84 18 188/68 100 Intake and Output 12/02/19 12/03/19 12/03/19 22:59 06:59 14:59 Other: Voiding Method Toilet Toilet # Voids 1 0 Weight 91.172 kg 90.6 kg Results 12/03/19 06:01 12/02/19 17:55 Cardiac Enzymes 12/02/19 12/02/19 12/02/19 Range/Units 17:55 17:55 21:03 AST 36 (14-36) U/L Troponin I 0.402 H* 0.338 H* (0.000-0.034) ng/mL 12/03/19 Range/Units 00:37 AST (14-36) U/L Troponin I 0.396 H* (0.000-0.034) ng/mL Coagulation 12/02/19 12/03/19 Range/Units 22:39 06:01 PT 10.1 (9.0-12.0) sec APTT 24.7 49.5 H (22.0-30.0) sec Lipids 12/03/19 Range/Units 06:01 Triglycerides 125 (<150) mg/dL Cholesterol 175 (<200) mg/dL HDL Cholesterol 29 L (40-60) mg/dL CBC 12/02/19 12/02/19 12/03/19 Range/Units 17:55 22:39 06:01 WBC 5.7 5.3 4.6 (3.8-10.6) k/uL RBC 5.07 4.55 4.34 (3.80-5.40) m/uL Hgb 15.2 14.3 12.9 (11.4-16.0) gm/dL Hct 45.2 41.9 39.0 (34.0-46.0) % Plt Count 195 184 177 (150-450) k/uL Comprehensive Metabolic Panel 12/02/19 Range/Units 17:55 Sodium 131 L (137-145) mmol/L Potassium 3.8 (3.5-5.1) mmol/L Chloride 98 (98-107) mmol/L Carbon Dioxide 24 (22-30) mmol/L BUN 22 H (7-17) mg/dL Creatinine 0.77 (0.52-1.04) mg/dL Glucose 115 H (74-99) mg/dL Calcium 9.7 (8.4-10.2) mg/dL AST 36 (14-36) U/L ALT 27 (4-34) U/L Alkaline Phosphatase 116 (38-126) U/L Total Protein 7.4 (6.3-8.2) g/dL Albumin 4.4 (3.5-5.0) g/dL Current Medications Generic Name Dose Route Start Last Admin Trade Name Freq PRN Reason Stop Dose Admin Acetaminophen 650 mg 12/03/19 00:14 12/03/19 00:22 Acetaminophen Tab 325 Mg Tab PO 650 mg Q6HR PRN Administration Fever and/ or Pain Aspirin 325 mg 12/03/19 09:00 12/03/19 08:48 Aspirin 325 Mg Tab PO 325 mg DAILY LEONARDO Administration Atorvastatin Calcium 80 mg 12/03/19 09:00 12/03/19 08:48 Atorvastatin 80 Mg Tab PO 80 mg DAILY LEONARDO Administration Heparin Sodium (Porcine) 0 unit 12/02/19 22:30 Heparin Sodium,Porcine 5,000 Unit/Ml 1 Ml Vial IV PER PROTOCOL PRN Low PTT Protocol Heparin Sodium/Sodium Chloride 250 mls @ 9.117 mls/hr 12/02/19 22:30 12/03/19 00:16 25,000 unit/ Sodium Chloride IV 10 units/kg/hr .Q24H LEONARDO 9.117 mls/hr Administration Protocol 10 UNITS/KG/HR Metoprolol Tartrate 50 mg 12/02/19 21:00 12/03/19 00:22 Metoprolol Tartrate 50 Mg Tab PO 50 mg BID LEONARDO Administration Morphine Sulfate 4 mg 12/02/19 19:45 Morphine Sulfate 4 Mg/Ml Syringe IV Q4HR PRN Chest Pain Nitroglycerin 0.4 mg 12/02/19 19:45 Nitroglycerin Sl Tabs 0.4 Mg Tab SUBLINGUAL Q5M PRN Chest Pain Oxcarbazepine 300 mg 12/02/19 22:30 12/03/19 08:48 Oxcarbazepine 300 Mg Tab PO 300 mg BID LEONARDO Administration Intake and Output 12/02/19 12/03/19 12/03/19 22:59 06:59 14:59 Other: Voiding Method Toilet Toilet # Voids 1 0 Weight 91.172 kg 90.6 kg 12/03/19 06:01 12/02/19 17:55
[2019-12-03] MEDS ORDERED: HEPARIN SODIUM 1,000 UN/ML (10ML VL) ONE (10:42)
[2019-12-03] MEDS ORDERED: LIDOCAINE 1% INJ 10MG/ML (20 ML MDV) ONE (10:42)
[2019-12-03] MEDS ORDERED: VERAPAMIL 2.5 MG/ML 2 ML AMP ONE (10:42)
[2019-12-03] MEDS ORDERED: IV FLUID CONTINUATION 250 ML IV ONE (10:49)
[2019-12-03] MEDS ORDERED: MIDAZOLAM 2 MG/2 ML VIAL IVP ONE (11:33)
[2019-12-03] MEDS ORDERED: LIDOCAINE 1% INJ 10MG/ML (20 ML MDV) SQ ONE (11:37)
[2019-12-03] MEDS ORDERED: VERAPAMIL SYRINGE (5 MG/10 ML) INTRAARTER ONE (11:48)
[2019-12-03] MEDS ORDERED: TICAGRELOR 90 MG TAB ONE (11:57)
[2019-12-03] MEDS ORDERED: BIVALIRUDIN BOLUS 250 MG/50 ML IV ONE (11:59)
[2019-12-03] MEDS ORDERED: BIVALIRUDIN 250 MG in SODIUM CHLORIDE 0.9% 50 ML IV ONE (12:01)
[2019-12-03] MEDS ORDERED: TICAGRELOR 90 MG TAB PO ONE (12:01)
[2019-12-03] MEDS: NITROGLYCERIN 1000MCG/10ML SYRINGE INTRACORON ONE ×2 (12:05→12:09)
[2019-12-03] MEDS ORDERED: IOPAMIDOL-370 125ML BTL INJ ONE (12:15)
[2019-12-03] MEDS ORDERED: RX INFO: IV CONTRAST WAS GIVEN 1 EACH MISC MISCELLANE PRN (12:20)
[2019-12-03] MEDS ORDERED: ATROPINE SULFATE 0.1 MG/ML 10ML SYRINGE IV PRN (12:20)
[2019-12-03] MEDS ORDERED: ZOLPIDEM 5 MG TAB PO PRN (12:20)
[2019-12-03] MEDS ORDERED: NITROGLYCERIN SL TABS 0.4 MG TAB SUBLINGUAL PRN (12:20)
[2019-12-03] MEDS ORDERED: MAG HYDROX/AL HYDROX/SIMETH 30 ML CUP PO PRN (12:20)
[2019-12-03] MEDS ORDERED: SODIUM CHLORIDE 0.9% 1,000 ML IV SCH (12:30)
--- NOTE | 2019-12-03 13:03 | LTR ---
DATE OF SERVICE: 12/03/2019 RE: Sara Thurston Dear Dr. Melo; Ms. Sara Thurston underwent a heart catheterization and was found to have critical disease involving the left anterior descending artery. I did perform successful stenting of the LAD with good angiographic results. Thank you for allowing us to participate in this patient's care and please do not hesitate to call if you have any question or concern. Sincerely, MD ATIF Lugo / LINNEA: [id number] /
--- NOTE | 2019-12-03 13:03 | CC ---
CARDIAC CATHETERIZATION REPORT DATE OF SERVICE: 12/03/2019 PERFORMING PHYSICIAN: John Ward MD. PROCEDURE PERFORMED: 1. Selective right and left coronary angiogram. 2. Successful stenting of the mid left anterior descending artery using 3.5 x 15 mm Xience EDSON with an excellent angiographic results and reduction of stenosis from 99% to 0%. INDICATION: This is a very pleasant 74-year-old female patient with hypertension and dyslipidemia who was admitted to the hospital with chest discomfort and ruled in for acute non-ST- elevation myocardial infarction. She was seen by Dr. So who recommended proceeding with coronary angiogram. APPROACH: Right radial artery. COMPLICATION: None. LEVEL OF SEDATION: Moderate with sedation length of 37 minutes. PROCEDURE DESCRIPTION: After obtaining informed consent, the patient was brought to the cardiac laboratory technology teacher. The right radial artery was cannulated using micropuncture technique, the micropuncture wire passed easily, then I placed a 6-Iranian sheath. At that point, I did selective right and left coronary angiogram using JR4 and JL3.5 catheters. After that, I did intervene on the LAD, please see a separate paragraph for that. After that, the procedure was completed without any complication. SELECTIVE CORONARY ANGIOGRAM: 1. The right coronary artery is a large caliber vessel and it is a dominant vessel. The RCA has intermediate to severe lesion in the midportion appeared to be in the range of 50% to 60%. The RCA distally bifurcates into PDA and PLV branches and both appeared to be angiographically normal. 2. The left main is angiographically normal, it bifurcates into LCX and LAD. 3. The LCX is a large caliber vessel, it is a codominant vessel. The proximal left circumflex is normal and gives rise into an OM1 which has mild to moderate disease in the ostium. The mid left circumflex appeared to be angiographically normal and gives rise into a second OM branch which appeared to be normal. The left circumflex distally gives rise into a small third obtuse marginal branch which is also angiographically normal and the circumflex continues after that as a PDA on the inferior wall. 4. The LAD, the proximal LAD has mild disease only. The mid LAD has a critical lesion, appeared to be in the range of 99.9%. The LAD distally appeared to have only mild disease. The LAD does reach and wrap around the apex. PCI OF THE LAD: Anticoagulation was initiated using Angiomax. Subsequently, I did engage the left main using JL3.5 guide. The LAD using a whisper wire. After that I did balloon angioplasty using 3.0 x 12 mm balloon before I deployed 3.5 x 15 mm Xience EDSON where the stent was positioned under fluoroscopy guidance and deployed under 12 atmospheres for 20 seconds. The following angiogram showed excellent angiographic results and the procedure was completed without any complication. CONCLUSION: 1. Critical disease involving the mid left anterior descending artery. I performed successful stenting of the LAD with an excellent angiographic results and without any complication. 2. Mild disease involving the left circumflex coronary system. 3. Intermediate to severe disease involving the mid RCA. POSTPROCEDURE MANAGEMENT: 1. Dual anti-platelet therapy. 2. Aggressive cholesterol control. 3. Risk factor modifications. 4. Assess for ischemia in the right coronary artery territory probably as an outpatient. MMODL / IJN: [id number] /
--- NOTE | 2019-12-03 13:35 | ECHOF ---
Referral Reason:nstemi, cp MEASUREMENTS -------- HEIGHT: 170.2 cm WEIGHT: 90.3 kg BP: 120/58 RVIDd: 3.1 cm (< 3.3) IVSd: 1.2 cm (0.6 - 1.1) LVIDd: 3.6 cm (3.9 - 5.3) LVPWd: 1.0 cm (0.6 - 1.1) IVSs: 1.8 cm LVIDs: 2.1 cm LVPWs: 1.7 cm LA Diam: 3.6 cm (2.7 - 3.8) LAESV Index (A-L): 22.18 ml/m Ao Diam: 2.9 cm (2.0 - 3.7) AV Cusp: 2.3 cm (1.5 - 2.6) MV EXCURSION: 16.399 mm (> 18.000) MV EF SLOPE: 75 mm/s (70 - 150) EPSS: 0.3 cm MV E Tristen: 0.84 m/s MV DecT: 139 ms MV A Tristen: 0.98 m/s MV E/A Ratio: 0.86 AR PHT: 661 ms RAP: 5.00 mmHg RVSP: 28.49 mmHg FINDINGS -------- Sinus rhythm. This was a technically good study. The left ventricular size is normal. There is borderline concentric left ventricular hypertrophy. Overall left ventricular systolic function is normal with, an EF between 60 - 65 %. The right ventricle is normal in size. Normal LA size by volume 22+/-6 ml/m2. The right atrium is normal in size. Interatrial and interventricular septum intact. There is mild aortic valve sclerosis. There is mild aortic regurgitation. There is trace mitral regurgitation. Mild tricuspid regurgitation present. Right ventricular systolic pressure is normal at < 35 mmHg. Trace/mild (physiologic) pulmonic regurgitation. The aortic root size is normal. Normal inferior vena cava with normal inspiratory collapse consistent with estimated right atrial pre ssure of 5 mmHg. There is no pericardial effusion. CONCLUSIONS -------- 1. The left ventricular size is normal. 2. There is borderline concentric left ventricular hypertrophy. 3. Overall left ventricular systolic function is normal with, an EF between 60 - 65 %. 4. There is mild aortic valve sclerosis. 5. There is mild aortic regurgitation. 6. There is trace mitral regurgitation. 7. Mild tricuspid regurgitation present. 8. Trace/mild (physiologic) pulmonic regurgitation. 9. There is no pericardial effusion. RADIO SPORTSCASTER: Awilda Motnoya RDCS
[2019-12-03 15:01] VITALS: BMI 31.2
--- NOTE | 2019-12-03 15:37 | XR ---
EXAMINATION TYPE: XR chest 2V DATE OF EXAM: 12/03/2019 COMPARISON: Prior chest x-ray 09/11/2018 HISTORY: Chest pain TECHNIQUE: Frontal and lateral views of the chest are obtained. FINDINGS: There is no focal air space opacity, pleural effusion, or pneumothorax seen. The cardiac silhouette size is within normal limits. The aorta is dense. The osseous structures are intact. IMPRESSION: No acute cardiopulmonary process.
[2019-12-03] MEDS: TICAGRELOR 90 MG TAB PO SCH (19:51)
[2019-12-04 07:19] LABS: Calcium 9.2 mg/dL (8.4-10.2); Potassium 3.3 mmol/L (3.5-5.1)
[2019-12-04 07:22] LABS: Basophils % (A) 1 %; Eosinophils # (A) 0.2 k/uL (0-0.7); Eosinophils % (A) 3 %; HCT 38.5 % (34.0-46.0); HGB 12.9 gm/dL (11.4-16.0); Lymphocytes # (A) 0.8 k/uL (1.0-4.8); Lymphocytes % (A) 16 %; MCH 30.7 pg (25.0-35.0); MCHC 33.7 g/dL (31.0-37.0); MCV 91.3 fL (80.0-100.0); Mean Platelet Volume 6.8; Monocytes # (A) 0.5 k/uL (0-1.0); Monocytes % (A) 9 %; Neutrophils # (A) 3.5 k/uL (1.3-7.7); Neutrophils % (A) 68 %; Platelet Count 175 k/uL (150-450); RBC 4.21 m/uL (3.80-5.40); RDW 13.3 % (11.5-15.5); WBC 5.2 k/uL (3.8-10.6)
[2019-12-04 08:33] VITALS: BP 131/63; PULSE 65; RESP 16; TEMP 97.4
[2019-12-04] MEDS: TICAGRELOR 90 MG TAB PO SCH (08:34)
[2019-12-04] MEDS: ATORVASTATIN 80 MG TAB PO SCH (08:35)
[2019-12-04] MEDS: OXcarbazepine 300 MG TAB PO SCH (08:35)
[2019-12-04] MEDS: LOSARTAN 50 MG TAB PO SCH (08:35)
[2019-12-04] MEDS: METOPROLOL TARTRATE 50 MG TAB PO SCH (08:35)
[2019-12-04] MEDS ORDERED: ASPIRIN 81 MG PO SCH (09:00)
[2019-12-04] MEDS ORDERED: POTASSIUM CHLORIDE ER 20 MEQ TAB.ER PO STA (10:54)
--- NOTE | 2019-12-04 11:41 | P.DS ---
Providers Date of admission: 12/03/19 13:46 Attending physician: Nate Melo Consults: 12/02/19 19:45 Consult Physician Urgent Consulting Provider: Serg Dsouza Consult Reason/Comments: cp Do you want consulting provider notified?: Yes 12/03/19 12:20 Consult Physician Routine Consulting Provider: Cardiology Yessenia Consult Reason/Comments: Post Interventional patient Do you want consulting provider notified?: Already Contacted Primary care physician: Nate Melo Hospital Course: patient is admitted for the non-ST leg microinfarction underwent cardiac catheterization and stenting of the mid LAD cleared by cardiology patient was discharged today patient was started on beta skip and had a normal ejection fraction. Patient will be discharged today with dual antibiotic therapy beta skip statin and losartan. PHYSICAL EXAMINATION: GENERAL: The patient is alert and oriented x3, not in any acute distress. Well developed, well nourished. HEENT: Pupils are round and equally reacting to light. EOMI. No scleral icterus. No conjunctival pallor. Normocephalic, atraumatic. No pharyngeal erythema. No thyromegaly. CARDIOVASCULAR: S1 and S2 present. No murmurs, rubs, or gallops. PULMONARY: Chest is clear to auscultation, no wheezing or crackles. ABDOMEN: Soft, nontender, nondistended, normoactive bowel sounds. No palpable organomegaly. MUSCULOSKELETAL: No joint swelling or deformity. EXTREMITIES: No cyanosis, clubbing, or pedal edema. NEUROLOGICAL: Gross neurological examination did not reveal any focal deficits. SKIN: No rashes. for rest of the medical problems and has physician course please refer to the documentation or dictation from Dr. Melo her primary care physician from yesterday Patient Condition at Discharge: Serious Plan - Discharge Summary Discharge Rx Participant: No New Discharge Prescriptions: New Ticagrelor [Brilinta] 90 mg PO BID #60 tab Atorvastatin [Lipitor] 80 mg PO HS #30 tab Metoprolol Tartrate [Lopressor] 50 mg PO BID #60 tab Nitroglycerin Sl Tabs [Nitrostat] 0.4 mg SUBLINGUAL Q5M PRN #30 tab PRN Reason: Chest Pain Continue OXcarbazepine [Trileptal] 300 mg PO BID Losartan Potassium 100 mg PO DAILY Levothyroxine Sodium [Synthroid] 75 mcg PO QAM LORazepam [Ativan] 0.5 mg PO BID PRN PRN Reason: PRIOR TO ONSET OF SEIZURE Multivitamins, Thera [Multivitamin (formulary)] 1 tab PO DAILY Colesevelam [Welchol] 1,875 mg PO AC-TID Aspirin EC [Ecotrin] 325 mg PO DAILY [place]-3 Fatty Acids/Fish Oil [Fish Oil 1,000 mg Softgel] 1 cap PO DAILY Discontinued amLODIPine BESYLATE [Norvasc] 10 mg PO DAILY Discharge Medication List LORazepam [Ativan] 0.5 mg PO BID PRN 09/10/15 [History] Levothyroxine Sodium [Synthroid] 75 mcg PO QAM 09/10/15 [History] Losartan Potassium 100 mg PO DAILY 09/10/15 [History] OXcarbazepine [Trileptal] 300 mg PO BID 09/10/15 [History] Colesevelam [Welchol] 1,875 mg PO AC-TID 05/27/17 [History] Multivitamins, Thera [Multivitamin (formulary)] 1 tab PO DAILY 05/27/17 [History] Aspirin EC [Ecotrin] 325 mg PO DAILY 12/02/19 [History] [place]-3 Fatty Acids/Fish Oil [Fish Oil 1,000 mg Softgel] 1 cap PO DAILY 12/02/19 [History] Atorvastatin [Lipitor] 80 mg PO HS #30 tab 12/04/19 [Rx] Metoprolol Tartrate [Lopressor] 50 mg PO BID #60 tab 12/04/19 [Rx] Nitroglycerin Sl Tabs [Nitrostat] 0.4 mg SUBLINGUAL Q5M PRN #30 tab 12/04/19 [Rx] Ticagrelor [Brilinta] 90 mg PO BID #60 tab 12/04/19 [Rx] Follow up Appointment(s)/Referral(s): John Ward MD [STAFF PHYSICIAN] - 12/10/19 5:00 pm (Staff may call you to change appointment.) Nate Melo MD [Primary Care Provider] - 3 Days (Please call during normal business hours.) Patient Instructions/Handouts: *Surgery [facility] - After Heart Catheterization - Twx Operator Instructions Discharge Disposition: HOME SELF-CARE
--- NOTE | 2019-12-04 11:57 | P.PN ---
Subjective Progress Note Date: 12/04/19 HISTORY OF PRESENTING ILLNESS This is a pleasant 74-year-old female past medical history significant for hypertension, peripheral vascular disease with carotid stenosis, ulcerative colitis, history of AV malformation status post brain surgery 2000 and history of seizures in the past. She follows in the office with Dr. Ward. We have been asked to see in consultation for chest pain. She states for the previous few months she has been noticing increasing and more frequent chest discomfort. She states she noticed it first at the beginning, when she would take a walk around her block she would feel discomfort in her chest that would persist until she got home and stopped walking. Her symptoms were infrequent and not at rest so she altered her typical activity to avoid strenuous work. However in the previous couple of days she has noticed more persistent chest discomfort. It started coming with no specific aggravating factor. At times she noticed it after she ate and she thought that it was related to indigestion. She saw her primary care physician, set up to undergo a stress test next week. However yesterday afternoon she had an intense episode of discomfort in the midsternal region described as a pressure associated with nausea and shortness of breath prompting her to come to the hospital for further evaluation. She is seen and examined with her at the bedside currently chest pain-free. 12/04/2019 Patient seen and examined. Denies any chest pain, anxious to go home. No SOB. Recieved PCI to LAD yesterday. Admits to some intolerance of BBlocker in the pa st however willing to attempt BBlocker. REVIEW OF SYSTEMS At the time of my exam: CONSTITUTIONAL: Denies fever or chills. CARDIOVASCULAR: Denies chest pain, shortness of breath, orthopnea, PND or p alpitations. RESPIRATORY: Denies cough. GASTROINTESTINAL: Denies abdominal pain, diarrhea, constipation, nausea or vomiting. MUSCULOSKELETAL: Denies myalgias. NEUROLOGIC: Denies numbness, tingling or weakness. ENDOCRINE: Denies fatigue, weight change, polydipsia or polyurina. GENITOURINARY: Denies burning, hematuria or urgency with micturation. HEMATOLOGIC: Denies history of anemia or bleeding. PHYSICAL EXAMINATION Vitals reviewed CONSTITUTIONAL: No apparent distress. HEENT: Head is normocephalic. Pupils are equal, round. Sclerae anicteric. Mucous membranes of the mouth are moist. No JVD. No carotid bruit. CHEST EXAMINATION: Lungs are clear to auscultation. No chest wall tenderness is noted on palpation or with deep breathing. HEART EXAMINATION: Regular rate and rhythm. S1, S2 heard. No murmurs, gallops or rub. ABDOMEN: Soft, nontender. Positive bowel sounds. EXTREMITIES: 2+ peripheral pulses, no lower extremity edema and no calf tenderness. NEUROLOGIC EXAMINATION: Patient is awake, alert and oriented x3. ASSESSMENT Non-ST elevated myocardial infarction Unstable angina Hypertension Peripheral vascular disease History of ulcerative colitis History of AV malformation status post brain surgery 2000 PLAN patient with ejection fraction 60-65% without significant valvular disease. patient received PCI to her mid LAD yesterday and has been doing well. Patient is stable for discharge home on aspirin and Brilinta. Continue losartan and metoprolol. Patient states she did have back spasm with prior beta skip however is willing to try current regimen. Follow-up in office in [address] Ward. Objective - Vital Signs Vital signs: Vital Signs Temp 97.4 F L 12/04/19 08:30 Pulse 65 12/04/19 08:30 Resp 16 12/04/19 08:30 BP 131/63 12/04/19 08:30 Pulse Ox 96 12/04/19 08:30 Intake & Output 12/03/19 12/04/19 12/04/19 18:59 06:59 18:59 Intake Total 545 75 240 Output Total 200 Balance 345 75 240 Weight 90.6 kg 90.4 kg Intake: IV 185 Intake, IV Titration 75 Amount Sodium Chloride 0.9% 1, 75 000 ml @ 75 mls/hr IV . [id number] [facility] Rx#:[id number] Oral 360 240 Output: Urine 200 Other: Voiding Method Toilet Toilet Toilet # Voids 1 2 - Labs CBC & Chem 7: 12/04/19 06:47 12/04/19 06:47 Labs: Abnormal Lab Results - Last 24 Hours (Table) 12/04/19 12/04/19 Range/Units 06:47 06:47 Lymphocytes # 0.8 L (1.0-4.8) k/uL Sodium 133 L (137-145) mmol/L Potassium 3.3 L (3.5-5.1) mmol/L BUN 28 H (7-17) mg/dL
== END 2019-12-04 12:46 | disposition home or self-care (01) | DRG 247 ==
LOC: EC 17:16 → INTOOBSV 19:47 → 3SCARD 19:47 → OBSVTOIN 12-03 13:46
PROVIDERS: ADMIT Family Medicine; ATTEND Family Medicine
PROC: 027034Z Dilation of Coronary Artery, One Artery with Drug-eluting Intraluminal Device, Percutaneous Approach (ICD-10-PCS; principal; 2019-12-03 12:50)
PROC: 4A023N7 Measurement of Cardiac Sampling and Pressure, Left Heart, Percutaneous Approach (ICD-10-PCS; principal; 2019-12-03 12:50)
PROC: B2111ZZ Fluoroscopy of Multiple Coronary Arteries using Low Osmolar Contrast (ICD-10-PCS; principal; 2019-12-03 12:50)
DX: I21.4 Non-ST elevation (NSTEMI) myocardial infarction (principal); E78.5 Hyperlipidemia, unspecified; I10 Essential (primary) hypertension; I73.9 Peripheral vascular disease, unspecified; M16.10 Unilateral primary osteoarthritis, unspecified hip; G40.909 Epilepsy, unspecified, not intractable, without status epilepticus; I20.0 Unstable angina; Z79.82 Long term (current) use of aspirin; Z79.890 Hormone replacement therapy; Z79.899 Other long term (current) drug therapy; Z88.1 Allergy status to other antibiotic agents; Z88.0 Allergy status to penicillin; Z88.8 Allergy status to other drugs, medicaments and biological substances; Z91.09 Other allergy status, other than to drugs and biological substances; Z86.73 Personal history of transient ischemic attack (TIA), and cerebral infarction without residual deficits; Z90.710 Acquired absence of both cervix and uterus; Z98.890 Other specified postprocedural states; Z82.49 Family history of ischemic heart disease and other diseases of the circulatory system; Z81.8 Family history of other mental and behavioral disorders; Z84.1 Family history of disorders of kidney and ureter
CPT/HCPCS: 36415; 70450; 71046; 80048; 80053; 80061; 81001; 83735; 83880; 84100; 84484; 85025; 85610; 85730; 93005; 93306; 93454; 96374; 96375; 99291

== ENCOUNTER → 2020-11-01 | Outpatient (CLI) | payer MEDICARE ==
--- NOTE | 2020-11-02 07:30 | CT ---
EXAMINATION TYPE: CT angio neck DATE OF EXAM: 11/01/2020 HISTORY: Carotid stenosis. History of AVM surgery. COMPARISON: MRA neck October 2019 CT DLP: 337.3 mGycm. Automated Exposure Control for Dose Reduction was Utilized. TECHNIQUE: CTA scan of the neck is performed with IV Contrast, patient injected with 65ml mL of Isov ue 370, axial images are obtained, coronal and sagittal reformatted images are reviewed. 3D reconstru cted images are created on an independent workstation and reviewed. FINDINGS: Carotid/Vascular Structures: Mild peripheral Calcified plaque in the aortic arch extends into 3 great vessels . No significant stenosis. Normal origin right common carotid artery from right brachiocepha lic artery with focal moderate noncalcified plaque causing stenosis under 50% axial image 29. Mild ca lcified plaque distal right common carotid artery No additional significant plaque or stenosis in com mon carotid arteries bilaterally. Patent external carotid arteries bilaterally without significant pl aque or stenosis. No significant plaque right carotid bulb. Just distal to this however there is more severe mixed plaq ue. There is significant stenosis with near complete occlusion seen near slice 543 of the raw data im ages over very short segment. Remainder of proximal right internal carotid artery shows mild mixed pl aque without significant stenosis. Distal right common carotid artery shows severe predominantly calc ified plaque with mixed peripheral plaque distally. Significant stenosis at this level is present in the supraclinoid segment. Moderate mixed plaque left carotid bulb extends into proximal internal carotid artery without signifi cant stenosis. Mild calcified plaque distally. There is dominant left vertebral artery. Vertebral arteries are patent to basilar junction. Other: Anterior to the left submandibular gland there is 1.4 x 1.1 cm slightly enlarged lymph node on axial image 53 noted. Additional suspicious but subcentimeter lymph node seen axial image 57 just de ep to the horizontal aspect of left mandible. Moderate disc space narrowing C5-C6 and C6-C7 levels. IMPRESSION: 1. Suspect there has been interval left neck surgery, no significant stenosis is evident on current s tudy. 2. Severe mixed plaque shortly after origin of right internal carotid artery causing near complete oc clusion, stenosis 90-99% is thought present. There is additional significant stenosis in the estimate d 70-80% in the distal right internal carotid artery, supraclinoid segment. NASCET criteria was used in interpretation of this exam?
== END | disposition home or self-care (01) ==
LOC: RADCTMAIN 16:27
PROVIDERS: ATTEND Psychiatry & Neurology Neurology
DX: I65.21 Occlusion and stenosis of right carotid artery (principal)
CPT/HCPCS: 82565; 84520; 70498; 36415; Q9967

== ENCOUNTER 2020-12-01 04:58 | Emergency (ER) | payer MEDICARE ==
[2020-12-01] MEDS ORDERED: SODIUM CHLORIDE 0.9% 1,000 ML IV STA (05:17)
--- NOTE | 2020-12-01 05:18 | ED ---
Recheck HPI - General Source: patient, family, RN notes reviewed, old records reviewed, Caregiver Mode of arrival: ambulatory Limitations: no limitations - History of Present Illness MD Complaint: medication refill request (Patient needs pain control), other (Right-sided neck pain) -: days(s) Returns Today for: persistent/worsening pain related to initial visit Symptoms Since Prior Visit: worsening pain Associated Symptoms: nausea Treatments Prior to Arrival: Given Pain Meds on <Reg Jaramillo - Last Filed: 12/01/20 07:14> <Guido Goodwin - Last Filed: 12/01/20 09:46> - General Chief Complaint: Neck Pain/Injury Stated Complaint: Jaw pain, headache Time Seen by Provider: 12/01/20 05:07 - History of Present Illness Initial Comments: This is a 75-year-old female to the ER for evaluation. Patient Dese for evaluation severe neck pain. Patient recently had a CEA of carotid artery. Patient presents today for severe pain in the neck she is surgery 5 days ago and is taking Tylenol for pain and the pain is not being controlled with Tylenol. Patient also states that the patient is just having too much pain does negative Tylenols causing her pain. She has no nausea no vomiting no fevers no chest pain no abdominal pain. (Reg Jaramillo) - Related Data Home Medications Medication Instructions Recorded Confirmed LORazepam [Ativan] 0.5 mg PO BID PRN 09/10/15 12/02/19 Levothyroxine Sodium [Synthroid] 75 mcg PO QAM 09/10/15 12/02/19 Losartan Potassium 100 mg PO DAILY 09/10/15 12/02/19 OXcarbazepine [Trileptal] 300 mg PO BID 09/10/15 12/02/19 Colesevelam [Welchol] 1,875 mg PO AC-TID 05/27/17 12/02/19 Multivitamins, Thera [Multivitamin 1 tab PO DAILY 05/27/17 12/02/19 (formulary)] Aspirin EC [Ecotrin] 325 mg PO DAILY 12/02/19 12/02/19 [place]-3 Fatty Acids/Fish Oil [Fish 1 cap PO DAILY 12/02/19 12/02/19 Oil 1,000 mg Softgel] Previous Rx's Medication Instructions Recorded Atorvastatin [Lipitor] 80 mg PO HS #30 tab 12/04/19 Metoprolol Tartrate [Lopressor] 50 mg PO BID #60 tab 12/04/19 Nitroglycerin Sl Tabs [Nitrostat] 0.4 mg SUBLINGUAL Q5M PRN #30 tab 12/04/19 Ticagrelor [Brilinta] 90 mg PO BID #60 tab 12/04/19 Allergies Allergy/AdvReac Type Severity Reaction Status Date / Time azithromycin Allergy Unknown Verified 12/01/20 05:06 carvedilol Allergy Unknown Verified 12/01/20 05:06 clindamycin Allergy Unknown Verified 12/01/20 05:06 diltiazem Allergy Unknown Verified 12/01/20 05:06 hydrochlorothiazide Allergy Unknown Verified 12/01/20 05:06 iron Allergy Unknown Verified 12/01/20 05:06 methylprednisolone Allergy Unknown Verified 12/01/20 05:06 [From Medrol] omega-3 acid ethyl esters Allergy Unknown Verified 12/01/20 05:06 Penicillins Allergy Unknown Verified 12/01/20 05:06 ciprofloxacin [From Cipro] AdvReac SEIZURE Verified 12/01/20 05:06 LIKE ACTIVITY" metronidazole [From Flagyl] AdvReac SEIZURE Verified 12/01/20 05:06 LIKE ACTIVITY nitroglycerin AdvReac Seizure Verified 12/01/20 05:06 with Patch Review of Systems ROS Other: All systems not noted in ROS Statement are negative. <Reg Jaramillo - Last Filed: 12/01/20 07:14> ROS Other: All systems not noted in ROS Statement are negative. <Guido Goodwin - Last Filed: 12/01/20 09:46> ROS Statement: Those systems with pertinent positive or pertinent negative responses have been documented in the HPI. Past Medical History Past Medical History: CVA/TIA, Hypertension, Seizure Disorder, Thyroid Disorder Additional Past Medical History / Comment(s): TIA , BLOOD IN STOOL, CYST ON KIDNEY ON XRAY", back pain, COLITIS DX AT AGE 25 History of Any Multi-Drug Resistant Organisms: None Reported Past Surgical History: Hysterectomy Additional Past Surgical History / Comment(s): 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, carotid surgery Past Anesthesia/Blood Transfusion Reactions: No Reported Reaction Past Psychological History: No Psychological Hx Reported Smoking Status: Never smoker Past Alcohol Use History: None Reported Past Drug Use History: None Reported - Past Family History Mother Family Medical History: Congestive Heart Failure (CHF), Dementia, Renal Disease Additional Family Medical History / Comment(s): in her 90s Father Family Medical History: Coronary Artery Disease (CAD) <Reg Jaramillo - Last Filed: 12/01/20 07:14> General Exam Limitations: no limitations General appearance: alert, in no apparent distress Head exam: Present: atraumatic, normocephalic, normal inspection Eye exam: Present: normal appearance, PERRL, EOMI. Absent: scleral icterus, co njunctival injection, periorbital swelling ENT exam: Present: normal exam, mucous membranes moist Neck exam: Present: normal inspection. Absent: tenderness, meningismus, lymphadenopathy Respiratory exam: Present: normal lung sounds bilaterally. Absent: respiratory distress, wheezes, rales, rhonchi, stridor Cardiovascular Exam: Present: regular rate, normal rhythm, normal heart sounds. Absent: systolic murmur, diastolic murmur, rubs, gallop, clicks GI/Abdominal exam: Present: soft, normal bowel sounds. Absent: distended, tenderness, guarding, rebound, rigid Extremities exam: Present: normal inspection, full ROM, normal capillary refill. Absent: tenderness, pedal edema, joint swelling, calf tenderness Back exam: Present: normal inspection Neurological exam: Present: alert, oriented X3, CN II-XII intact Psychiatric exam: Present: normal affect, normal mood Skin exam: Present: warm, dry, intact, normal color. Absent: rash <Reg Jaramillo - Last Filed: 12/01/20 07:14> ENT exam: Present: other (Postoperative changes right side of neck with minimal/mild swelling and ecchymosis.) <Guido Goodwin - Last Filed: 12/01/20 09:46> - General Exam Comments Initial Comments: Patient surgical site and right neck scar is clean dry and intact (Reg Jaramillo) Course <Reg Jaramillo - Last Filed: 12/01/20 07:14> Vital Signs 12/01/20 12/01/20 12/01/20 04:59 05:40 07:19 Temperature 98.5 F Pulse Rate 76 67 68 Respiratory 20 18 18 Rate Blood Pressure 196/73 187/74 178/73 O2 Sat by Pulse 99 97 100 Oximetry - Reevaluation(s) Reevaluation #1: 12/01/20 07:15 Medical records reviewed (Reg Jaramillo) Reevaluation #2: 12/01/20 07:15 Patient has pain control (Reg Jaramillo) Medical Decision Making - Lab Data Result diagrams: 12/01/20 05:18 12/01/20 05:18 - EKG Data -: EKG Interpreted by Me (EKG shows sinus rhythm rate of 76 LA 162 QRS 96 QTc 4:30) <Reg Jaramillo - Last Filed: 12/01/20 07:14> - Lab Data Result diagrams: 12/01/20 05:18 12/01/20 05:18 - Radiology Data Radiology results: report reviewed (CT brain and CTA shows no hemorrhage or shift. Atrophy and prior parietal occipital infarct versus cyst. Hypoplastic areas. Postsurgical changes with some. Vascular hematoma centered right carotid bifurcation. Some foci soft tissue air right base of neck likely postsurgical as well. Left-sided) <Guido Goodwin - Last Filed: 12/01/20 09:46> - Medical Decision Making Patient reevaluated and resting comfortably in bed. Patient and family updated on results and plan. Case was discussed with Dr. Ward who is familiar with this patient, including CT and CT results. He is comfortable with discharge. (Guido Goodwin) - Lab Data Lab Results 12/01/20 12/01/20 12/01/20 Range/Units 05:18 05:18 05:18 WBC 7.7 (3.8-10.6) k/uL RBC 4.31 (3.80-5.40) m/uL Hgb 13.4 (11.4-16.0) gm/dL Hct 40.4 (34.0-46.0) % MCV 93.6 (80.0-100.0) fL MCH 31.1 (25.0-35.0) pg MCHC 33.3 (31.0-37.0) g/dL RDW 12.6 (11.5-15.5) % Plt Count 197 (150-450) k/uL MPV 7.1 Neutrophils % 75 % Lymphocytes % 15 % Monocytes % 5 % Eosinophils % 2 % Basophils % 1 % Neutrophils # 5.8 (1.3-7.7) k/uL Lymphocytes # 1.2 (1.0-4.8) k/uL Monocytes # 0.4 (0-1.0) k/uL Eosinophils # 0.2 (0-0.7) k/uL Basophils # 0.0 (0-0.2) k/uL PT 9.8 (9.0-12.0) sec INR 0.9 (<1.2) APTT 24.1 (22.0-30.0) sec Sodium 140 (137-145) mmol/L Potassium 3.3 L (3.5-5.1) mmol/L Chloride 108 H (98-107) mmol/L Carbon Dioxide 24 (22-30) mmol/L Anion Gap 8 mmol/L BUN 11 (7-17) mg/dL Creatinine 0.54 (0.52-1.04) mg/dL Est GFR (CKD-EPI)AfAm >90 (>60 ml/min/1.73 sqM) Est GFR (CKD-EPI)NonAf >90 (>60 ml/min/1.73 sqM) Glucose 109 H (74-99) mg/dL Calcium 9.6 (8.4-10.2) mg/dL Phosphorus 2.6 (2.5-4.5) mg/dL Magnesium 1.7 (1.6-2.3) mg/dL Total Bilirubin 0.6 (0.2-1.3) mg/dL AST 26 (14-36) U/L ALT 13 (4-34) U/L Alkaline Phosphatase 113 (38-126) U/L Troponin I (0.000-0.034) ng/mL Total Protein 6.7 (6.3-8.2) g/dL Albumin 3.9 (3.5-5.0) g/dL 12/01/20 Range/Units 05:18 WBC (3.8-10.6) k/uL RBC (3.80-5.40) m/uL Hgb (11.4-16.0) gm/dL Hct (34.0-46.0) % MCV (80.0-100.0) fL MCH (25.0-35.0) pg MCHC (31.0-37.0) g/dL RDW (11.5-15.5) % Plt Count (150-450) k/uL MPV Neutrophils % % Lymphocytes % % Monocytes % % Eosinophils % % Basophils % % Neutrophils # (1.3-7.7) k/uL Lymphocytes # (1.0-4.8) k/uL Monocytes # (0-1.0) k/uL Eosinophils # (0-0.7) k/uL Basophils # (0-0.2) k/uL PT (9.0-12.0) sec INR (<1.2) APTT (22.0-30.0) sec Sodium (137-145) mmol/L Potassium (3.5-5.1) mmol/L Chloride (98-107) mmol/L Carbon Dioxide (22-30) mmol/L Anion Gap mmol/L BUN (7-17) mg/dL Creatinine (0.52-1.04) mg/dL Est GFR (CKD-EPI)AfAm (>60 ml/min/1.73 sqM) Est GFR (CKD-EPI)NonAf (>60 ml/min/1.73 sqM) Glucose (74-99) mg/dL Calcium (8.4-10.2) mg/dL Phosphorus (2.5-4.5) mg/dL Magnesium (1.6-2.3) mg/dL Total Bilirubin (0.2-1.3) mg/dL AST (14-36) U/L ALT (4-34) U/L Alkaline Phosphatase (38-126) U/L Troponin I <0.012 (0.000-0.034) ng/mL Total Protein (6.3-8.2) g/dL Albumin (3.5-5.0) g/dL Disposition Is patient prescribed a controlled substance at d/c from ED?: No <Reg Jaramillo - Last Filed: 12/01/20 07:14> Is patient prescribed a controlled substance at d/c from ED?: No Time of Disposition: 09:45 <Guido Goodwin - Last Filed: 12/01/20 09:46> Clinical Impression: Headache, Postoperative pain Disposition: HOME SELF-CARE Condition: Good Instructions (If sedation given, give patient instructions): Pain Management (ED) Additional Instructions: Please follow-up with your surgeon and Dr. Ward in the next couple days for recheck. Return for increased pain, swelling, worsening or changing symptoms or other concerns. Referrals: Nate Melo MD [Primary Care Provider] - 1-2 days
[2020-12-01 05:36] LABS: Basophils % (A) 1 %; Eosinophils # (A) 0.2 k/uL (0-0.7); Eosinophils % (A) 2 %; HCT 40.4 % (34.0-46.0); HGB 13.4 gm/dL (11.4-16.0); Lymphocytes # (A) 1.2 k/uL (1.0-4.8); Lymphocytes % (A) 15 %; MCH 31.1 pg (25.0-35.0); MCHC 33.3 g/dL (31.0-37.0); MCV 93.6 fL (80.0-100.0); Mean Platelet Volume 7.1; Monocytes # (A) 0.4 k/uL (0-1.0); Monocytes % (A) 5 %; Neutrophils # (A) 5.8 k/uL (1.3-7.7); Neutrophils % (A) 75 %; Platelet Count 197 k/uL (150-450); RBC 4.31 m/uL (3.80-5.40); RDW 12.6 % (11.5-15.5); WBC 7.7 k/uL (3.8-10.6)
[2020-12-01 05:54] LABS: INR 0.9 (<1.2); Partial Thromboplastin Time 24.1 sec (22.0-30.0); Prothrombin Time 9.8 sec (9.0-12.0)
[2020-12-01] MEDS ORDERED: MORPHINE SULFATE 4 MG/ML SYRINGE IVP STA ×2 (06:27→09:07)
[2020-12-01 06:37] LABS: ALT 13 U/L (4-34); AST 26 U/L (14-36); African American GFR (CKD) >90 (>60 ml/min/1.73 sqM); Albumin 3.9 g/dL (3.5-5.0); Alkaline Phosphatase 113 U/L (38-126); Anion Gap 8 mmol/L; Calcium 9.6 mg/dL (8.4-10.2); Carbon Dioxide 24 mmol/L (22-30); Chloride 108 mmol/L (98-107); Glucose 109 mg/dL (74-99); Magnesium 1.7 mg/dL (1.6-2.3); Non-African American GFR(CKD) >90 (>60 ml/min/1.73 sqM); Potassium 3.3 mmol/L (3.5-5.1); Sodium 140 mmol/L (137-145); Total Bilirubin 0.6 mg/dL (0.2-1.3); Total Protein 6.7 g/dL (6.3-8.2)
[2020-12-01 07:14] LABS: Blood Urea Nitrogen 11 mg/dL (7-17); Phosphorus 2.6 mg/dL (2.5-4.5)
[2020-12-01] MEDS ORDERED: ACET/COD 300 MG/30 MG STARTER PACK 6 TAB BTL PO STA (07:18)
[2020-12-01] MEDS ORDERED: POTASSIUM BICARBONATE/CIT AC 20 MEQ TABLET.EFF PO ONE (07:18)
[2020-12-01] MEDS ORDERED: traMADol 50 MG STARTER PACK 3 TAB BTL PO STA (07:18)
--- NOTE | 2020-12-01 07:57 | CT ---
EXAMINATION TYPE: CT brain wo con DATE OF EXAM: 12/01/2020 HISTORY: Headache, Rt neck and jaw pain CT DLP: 1106.8 mGycm. Automated Exposure Control for Dose Reduction was Utilized. TECHNIQUE: CT scan of the head is performed without contrast. COMPARISON: CT brain December 02, 2019 and older CTs. FINDINGS: There is no acute intracranial hemorrhage or midline shift identified. There is mild diff use ventricular and sulcal prominence consistent with diffuse age-related cerebral atrophy. Prominent CSF posterior to the lower left parietal-occipital lobe with local mass effect favors arachnoid cyst is unchanged from multiple prior studies. The globes are intact and the visualized sinuses are jareth r. IMPRESSION: No acute intracranial hemorrhage or midline shift. There is mild diffuse age-related ce rebral atrophy and moderate size left parietal occipital inferior arachnoid cyst with local mass effe ct redemonstrated. No significant change from prior studies.
--- NOTE | 2020-12-01 08:49 | CT ---
EXAMINATION TYPE: CT angio head neck DATE OF EXAM: 12/01/2020 COMPARISON: Correlation CT brain earlier today and prior CTA 11/01/2020 HISTORY: 75-year-old female [place], Rt neck and jaw pain. Carotid surgery 3 days ago. TECHNIQUE: Contiguous axial scanning of the head and neck performed with IV Contrast, patient injecte d with 65 mL of Isovue 370. Coronal/sagittal MIP reconstructions performed. CT DLP: 474.6 mGycm Automated exposure control for dose reduction was used. FINDINGS: NECK: There is conventional arch vessel branching anatomy. The left vertebral artery is dominant. Both vessels are patent throughout their course. There is some mild subcutaneous air tracking along the right base of the neck, reactive 8 mm right up per cervical lymph node, new soft tissue encasement at the level of the right carotid bifurcation and a focal mild narrowing of approximately 20% within the right carotid bulb. Otherwise, the right ICA is patent. Measurements utilized NASCET criteria. The left common carotid artery is patent. Moderate atherosclerotic changes are present at the left ca rotid bifurcation. Atherosclerotic plaque in the left carotid bulb may have increased from 11/01/2020 a nd now, at the origin of the carotid bulb, there is a focal borderline severe, 70% stenosis, refer to curved 3-D reconstruction of the left internal carotid artery image 8. HEAD: Dominant left vertebral artery. Both vertebral and basilar arteries appear patent. There appears to be a moderate focal stenosis at the origin of the left [employer], thin cut axial image 1. Otherwise, posterior cerebral arteries appear largely patent. Old left occipital parietal lobe infarct. Mild atherosclerotic changes in the bilateral carotid siphons with moderate focal stenosis in the sup raclinoid right ICA narrowing the patent lumen down to 1.6 mm versus 3.2 mm on the contralateral side . Hypoplastic A1 segment right anterior cerebral artery. Remainder of the anterior cerebral arteries ar e patent. There is only one patent anterior division of the right middle cerebral artery, similar to prior exam . There is also cut off of the proximal M1 segment left MCA. Also unchanged. No aneurysmal change is seen. IMPRESSION: NECK: 1. POST SURGICAL CHANGE WITH SOME PERIVASCULAR HEMATOMA CENTERED ALONG THE RIGHT CAROTID BIFURCATION. MILD, LESS THAN 20% NARROWING WITHIN THE RIGHT CAROTID BULB. SOME FOCI OF SOFT TISSUE AIR AT THE RIG HT BASE OF THE NECK LIKELY POSTSURGICAL WELL. 2. ADVANCED CHRONIC CHANGE AT THE LEFT CAROTID BIFURCATION AB SLIGHTLY INCREASED COMPARED TO THE RECE NT PRIOR 11/01/2020. THERE NOW APPEARS TO BE A FOCAL BORDERLINE SEVERE, 70% STENOSIS AT THE ORIGIN OF T HE LEFT CAROTID BULB. 3. DOMINANT LEFT VERTEBRAL ARTERY. BOTH VERTEBRAL ARTERIES ARE PATENT. HEAD: 4. INTRACRANIAL FINDINGS ARE SIMILAR. OLD LEFT PARIETO-OCCIPITAL LOBE INFARCT. 5. HYPOPLASTIC VERSUS OCCLUDED A1 SEGMENT RIGHT ANTERIOR CEREBRAL ARTERY. 6. ONLY ONE PATENT ANTERIOR DIVISION OF THE M2 SEGMENT RIGHT MCA. THE REMAINING M2 DIVISIONS ARE NOT VISUALIZED. AGAIN, UNCHANGED. 7. CUT OFF OF THE PROXIMAL M1 SEGMENT LEFT MCA ALSO UNCHANGED. 8. MODERATE ATHEROSCLEROTIC STENOSIS SUPRACLINOID RIGHT ICA.
[2020-12-01 10:32] VITALS: BP 152/64; PULSE 56; RESP 16; TEMP 97.8
== END 2020-12-01 10:28 | disposition home or self-care (01) ==
LOC: EC 04:58
DX: G89.18 Other acute postprocedural pain (principal); R51.9 Headache, unspecified; I10 Essential (primary) hypertension; G40.909 Epilepsy, unspecified, not intractable, without status epilepticus; Z79.82 Long term (current) use of aspirin; Z79.890 Hormone replacement therapy; Z79.899 Other long term (current) drug therapy; Z88.1 Allergy status to other antibiotic agents; Z88.0 Allergy status to penicillin; Z86.73 Personal history of transient ischemic attack (TIA), and cerebral infarction without residual deficits; Z82.49 Family history of ischemic heart disease and other diseases of the circulatory system
CPT/HCPCS: 36415; 80053; 83735; 84100; 84484; 85025; 85610; 85730; 70496; 70450; 70498; 99284; 96374; 96376; 96361; J2270; Q9967; 93005

== ENCOUNTER → 2022-03-04 | Outpatient (CLI) | payer MEDICARE ==
--- NOTE | 2022-03-05 08:13 | MR ---
EXAMINATION TYPE: MR knee RT wo/w con DATE OF EXAM: 03/04/2022 COMPARISON: X-ray 01/03/2019 HISTORY: PAIN IN RIGHT KNEE TECHNIQUE: Multiplanar, multisequence images of the right knee is performed without and with 9 mL int ravenous Gadavist gadolinium contrast. FINDINGS: MEDIAL MENISCUS: There is a complex tear involving the posterior horn and body of the medial meniscus . There is maintenance of the articular cartilage. LATERAL MENISCUS: Intrasubstance signal is seen involving the anterior and posterior horns of the lat eral meniscus more typical myxoid degeneration. Suspect a subtle linear tear involving the posterior horn of the meniscus. There is grade 3 localized focal areas of chondromalacia involving the femoral cartilage with no definite free fragment. CRUCIATE LIGAMENTS: Posterior cruciate ligament intact. There is intrasubstance signal within the ACL degenerative related to partial intrasubstance COLLATERAL LIGAMENTS: The medial collateral ligament and lateral collateral ligament complex are inta ct and unremarkable. EXTENSOR MECHANISM: The patellar and quadriceps tendons are intact. There is a moderate suprapatellar bursal fluid collection. POPLITEAL CYST: No popliteal/wade cyst. TRICOMPARTMENT SPACES: There is mild narrowing of the medial compartment and the patellofemoral korin rtment of the joint spaces. Benign reactive marrow changes are suspected involving the patella and di stal femur. Correlate for medial plica syndrome. Retinaculum intact. Fibrillation of the patellar car tilage noted. No pathologic enhancement postcontrast. There is intrasubstance oblique signal within the body of the ACL. IMPRESSION: 1. Complex tear posterior horn and body medial meniscus. Suspect a partial intrasubstance tear of the anterior cruciate ligament 2. Mucoid degeneration involving the anterior and posterior horn of the lateral meniscus with suspici on of a more subtle small focal linear tear near the tibial surface of the posterior horn lateral men iscus. 3. Moderate-sized suprapatellar bursal fluid collection. 4. chondromalacia involve the patellar cartilage and distal medial femoral articular cartilage.
== END | disposition home or self-care (01) ==
LOC: RADMRIMAIN 08:14
PROVIDERS: ATTEND Family Medicine
DX: M23.321 Other meniscus derangements, posterior horn of medial meniscus, right knee (principal); M17.11 Unilateral primary osteoarthritis, right knee; M22.41 Chondromalacia patellae, right knee
CPT/HCPCS: 73723; A9585

== ENCOUNTER 2022-10-01 21:03 | Observation (INO) | payer MEDICARE ==
--- NOTE | 2022-10-01 21:16 | ED ---
General Adult HPI - General Chief complaint: Chest Pain Stated complaint: chest pain Time Seen by Provider: 10/01/22 21:08 Source: patient, EMS, RN notes reviewed, old records reviewed Mode of arrival: EMS Limitations: no limitations - History of Present Illness Initial comments: 77-year-old female history of CAD presenting for evaluation of chest pain with associated nausea. Pain is in the central substernal region. Does radiate to her right shoulder. She denies abdominal pain. Denies fever. She's had nausea without vomiting. She has history of CAD status post stenting and was concerned this could be related to her heart. She was given aspirin by paramedics during transport. - Related Data Home Medications Medication Instructions Recorded Confirmed LORazepam [Ativan] 0.5 mg PO BID PRN 09/10/15 04/19/22 Levothyroxine Sodium [Synthroid] 75 mcg PO HS 09/10/15 04/19/22 Losartan Potassium 100 mg PO DAILY 09/10/15 04/25/22 OXcarbazepine [Trileptal] 300 mg PO HS 09/10/15 04/19/22 Multivitamins, Thera [Multivitamin 1 tab PO DAILY 05/27/17 04/19/22 (formulary)] Aspirin EC [Ecotrin] 81 mg PO DAILY 12/02/19 04/25/22 Clopidogrel [Plavix] 75 mg PO HS 04/19/22 04/25/22 Evolocumab [Repatha Syringe] 1 dose INJ Q14D 04/19/22 04/19/22 Ezetimibe [Zetia] 10 mg PO HS 04/19/22 04/19/22 Metoprolol Tartrate [Lopressor] 50 mg PO BID-W/MEALS 04/19/22 04/25/22 amLODIPine 10 mg PO DAILY 04/19/22 04/25/22 Previous Rx's Medication Instructions Recorded traMADol HCl [Ultram] 50 mg PO Q6H PRN #12 tab 04/25/22 predniSONE [Deltasone] 20 mg PO BID #8 tab 04/26/22 Allergies Allergy/AdvReac Type Severity Reaction Status Date / Time azithromycin Allergy Diarrhea Verified 04/26/22 00:58 carvedilol Allergy Dyspnea Verified 04/26/22 00:58 clindamycin Allergy Diarrhea Verified 04/26/22 00:58 diltiazem Allergy Dyspnea Verified 04/26/22 00:58 diphenhydramine Allergy Unknown Verified 04/26/22 00:58 [From Benadryl] hydrochlorothiazide Allergy Unknown Verified 04/26/22 00:58 iron Allergy Unknown Verified 04/26/22 00:58 methylprednisolone Allergy Diarrhea Verified 04/26/22 00:58 [From Medrol] omega-3 acid ethyl esters Allergy Unknown Verified 04/26/22 00:58 Penicillins Allergy Diarrhea Verified 04/26/22 00:58 tramadol Allergy Unknown Verified 04/26/22 00:58 atorvastatin [From Lipitor] AdvReac Unknown Verified 10/01/22 21:10 ciprofloxacin [From Cipro] AdvReac SEIZURE Verified 04/26/22 00:58 LIKE ACTIVITY" hydralazine AdvReac Unknown Verified 10/01/22 21:10 metronidazole [From Flagyl] AdvReac SEIZURE Verified 04/26/22 00:58 LIKE ACTIVITY nitroglycerin AdvReac Seizure Verified 04/26/22 00:58 with Patch pantoprazole AdvReac Unknown Verified 10/01/22 21:11 rosuvastatin [From Crestor] AdvReac Unknown Verified 10/01/22 21:09 Zjlzvym-ILF-NcT Reductase AdvReac Unknown Verified 10/01/22 21:11 Inhibitor Review of Systems ROS Statement: Those systems with pertinent positive or pertinent negative responses have been documented in the HPI. ROS Other: All systems not noted in ROS Statement are negative. Past Medical History Past Medical History: CVA/TIA, Hypertension, Seizure Disorder, Thyroid Disorder Additional Past Medical History / Comment(s): TIA , BLOOD IN STOOL, CYST ON KIDN EY ON XRAY", back pain, COLITIS DX AT AGE 25 History of Any Multi-Drug Resistant Organisms: None Reported Past Surgical History: Heart Catheterization With Stent, Hysterectomy Additional Past Surgical History / Comment(s): 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, carotid surgery, (R)knee arthroscopic Past Anesthesia/Blood Transfusion Reactions: No Reported Reaction Past Psychological History: No Psychological Hx Reported Smoking Status: Never smoker Past Alcohol Use History: None Reported Past Drug Use History: None Reported - Past Family History Mother Family Medical History: Congestive Heart Failure (CHF), Dementia, Renal Disease Additional Family Medical History / Comment(s): in her 90s Father Family Medical History: Coronary Artery Disease (CAD) General Exam Limitations: no limitations General appearance: alert, in no apparent distress Head exam: Present: atraumatic, normocephalic Eye exam: Present: normal appearance, PERRL ENT exam: Present: normal exam Neck exam: Present: normal inspection. Absent: tenderness, meningismus Respiratory exam: Present: normal lung sounds bilaterally. Absent: respiratory distress, wheezes Cardiovascular Exam: Present: regular rate, normal rhythm GI/Abdominal exam: Present: soft. Absent: distended, tenderness, guarding Extremities exam: Present: pedal edema Neurological exam: Present: alert, oriented X3, CN II-XII intact. Absent: motor sensory deficit Psychiatric exam: Present: normal affect, normal mood Skin exam: Present: warm, dry, intact. Absent: cyanosis, diaphoretic Course Vital Signs 10/01/22 10/01/22 21:04 22:01 Temperature 97.9 F Pulse Rate 67 62 Respiratory 20 20 Rate Blood Pressure 155/59 160/60 O2 Sat by Pulse 98 97 Oximetry Medical Decision Making - Medical Decision Making Was pt. sent in by a medical professional or institution (, PA, LOAD MANAGER, urgent care, hospital, or senior living...) When possible be specific @ -No Did you speak to anyone other than the patient for history (EMS, parent, family, police, friend...)? What history was obtained from this source @ -No Did you review nursing and triage notes (agree or disagree)? Why? @ -I reviewed and agree with nursing and triage notes Were old charts reviewed (outside hosp., previous admission, EMS record, old EKG, old radiological studies, urgent care reports/EKG's, senior living records)? Report findings @ -No old charts were reviewed Differential Diagnosis (chest pain, altered mental status, abdominal pain women, abdominal pain men, vaginal bleeding, weakness, fever, dyspnea, syncope, headache, dizziness, GI bleed, back pain, seizure, CVA, palpatations, mental health, musculoskeletal)? @ -[Differential Chest Pain: Stable Angina, Unstable Angina, STEMI, NSTEMI Aortic Dissection, Pneumothorax, Musculoskeletal, Esophageal Spasm GERD, Cholecystitis, Pancreatitis, Zoster, this is not meant to be an all-inclusive list. EKG interpreted by me (3pts min.). @ -EKG: Sinus rhythm LVH, T-wave inversion in V2, no ST segment elevation, ventricular rate 63, VA interval 164, QRS duration 102, QTC 441 X-rays interpreted by me (1pt min.). @Chest x-ray and negative for acute cardiopulmonary findings CT interpreted by me (1pt min.). @ -None done U/S interpreted by me (1pt. min.). @ -None done What testing was considered but not performed or refused? (CT, X-rays, U/S, labs)? Why? @ -None What meds were considered but not given or refused? Why? @ -None Did you discuss the management of the patient with other professionals (professionals i.e. , PA, LOAD MANAGER, lab, RT, psych nurse, social media designer, carbide tool maker, teacher, transportation officer, hospice case manager)? Give summary @ -[Case discussed with Dr. Melo who will admit Was smoking cessation discussed for >3mins.? @ -No Was critical care preformed (if so, how long)? @ -No Were there social determinants of health that impacted care today? How? (Homelessness, low income, unemployed, alcoholism, drug addiction, transportation, low edu. Level, literacy, decrease access to med. care, fdc, rehab)? @ -No Was there de-escalation of care discussed even if they declined (Discuss DNR or withdrawal of care, Hospice)? DNR status @ -No What co-morbidities impacted this encounter? (DM, HTN, Smoking, COPD, CAD, Cancer, CVA, ARF, Chemo, Hep., AIDS, mental health diagnosis, sleep apnea, morbid obesity)? @Hypertension, CAD Was patient admitted / discharged? Hospital course, mention meds given and route, prescriptions, significant lab abnormalities, going to OR and other pertinent info. @77-year-old female with known coronary artery disease presenting for evaluation of chest discomfort with nausea. EKG is sinus without ST segment elevation. Chest x-ray is clear. She has normal CBC, normal CMP, negative initial troponin. She will be kept in observation for serial cardiac enzymes, telemetry, cardiology consultation. Undiagnosed new problem with uncertain prognosis? @ -No Drug Therapy requiring intensive monitoring for toxicity (Heparin, Nitro, Insulin, Cardizem)? @ -No Were any procedures done? @ -No Diagnosis/symptom? @Chest pain rule out Acute, or Chronic, or Acute on Chronic? @ -Acute Uncomplicated (without systemic symptoms) or Complicated (systemic symptoms)? @ -default Side effects of treatment? @ -No Exacerbation, Progression, or Severe Exacerbation? @ -No Poses a threat to life or bodily function? How? (Chest pain, USA, CA, pneumonia, PE, COPD, DKA, ARF, appy, cholecystitis, CVA, Diverticulitis, Homicidal, Suicidal, threat to staff... and all critical care pts) @ -[Yes, chest pain - Lab Data Result diagrams: 10/01/22 21:14 10/01/22 21:14 Lab Results 10/01/22 10/01/22 10/01/22 Range/Units 21:14 21:14 21:14 WBC 6.0 (3.8-10.6) k/uL RBC 4.30 (3.80-5.40) m/uL Hgb 13.5 (11.4-16.0) gm/dL Hct 39.6 (34.0-46.0) % MCV 92.1 (80.0-100.0) fL MCH 31.4 (25.0-35.0) pg MCHC 34.1 (31.0-37.0) g/dL RDW 13.3 (11.5-15.5) % Plt Count 177 (150-450) k/uL MPV 7.3 Neutrophils % 80 % Lymphocytes % 12 % Monocytes % 4 % Eosinophils % 2 % Basophils % 1 % Neutrophils # 4.8 (1.3-7.7) k/uL Lymphocytes # 0.7 L (1.0-4.8) k/uL Monocytes # 0.2 (0-1.0) k/uL Eosinophils # 0.1 (0-0.7) k/uL Basophils # 0.1 (0-0.2) k/uL PT 9.9 (9.0-12.0) sec INR 0.9 (<1.2) APTT 19.9 L (22.0-30.0) sec Sodium 138 (137-145) mmol/L Potassium 3.7 (3.5-5.1) mmol/L Chloride 106 (98-107) mmol/L Carbon Dioxide 24 (22-30) mmol/L Anion Gap 8 mmol/L BUN 22 H (7-17) mg/dL Creatinine 0.70 (0.52-1.04) mg/dL Est GFR (CKD-EPI)AfAm >90 (>60 ml/min/1.73 sqM) Est GFR (CKD-EPI)NonAf 84 (>60 ml/min/1.73 sqM) Glucose 132 H (74-99) mg/dL Calcium 9.0 (8.4-10.2) mg/dL Magnesium 2.0 (1.6-2.3) mg/dL Total Bilirubin 0.5 (0.2-1.3) mg/dL AST 32 (14-36) U/L ALT 24 (4-34) U/L Alkaline Phosphatase 103 (38-126) U/L Troponin I (0.000-0.034) ng/mL NT-Pro-B Natriuret Pep 181 pg/mL Total Protein 6.9 (6.3-8.2) g/dL Albumin 4.1 (3.5-5.0) g/dL Lipase 151 (23-300) U/L /10/16 Range/Units 21:14 WBC (3.8-10.6) k/uL RBC (3.80-5.40) m/uL Hgb (11.4-16.0) gm/dL Hct (34.0-46.0) % MCV (80.0-100.0) fL MCH (25.0-35.0) pg MCHC (31.0-37.0) g/dL RDW (11.5-15.5) % Plt Count (150-450) k/uL MPV Neutrophils % % Lymphocytes % % Monocytes % % Eosinophils % % Basophils % % Neutrophils # (1.3-7.7) k/uL Lymphocytes # (1.0-4.8) k/uL Monocytes # (0-1.0) k/uL Eosinophils # (0-0.7) k/uL Basophils # (0-0.2) k/uL PT (9.0-12.0) sec INR (<1.2) APTT (22.0-30.0) sec Sodium (137-145) mmol/L Potassium (3.5-5.1) mmol/L Chloride (98-107) mmol/L Carbon Dioxide (22-30) mmol/L Anion Gap mmol/L BUN (7-17) mg/dL Creatinine (0.52-1.04) mg/dL Est GFR (CKD-EPI)AfAm (>60 ml/min/1.73 sqM) Est GFR (CKD-EPI)NonAf (>60 ml/min/1.73 sqM) Glucose (74-99) mg/dL Calcium (8.4-10.2) mg/dL Magnesium (1.6-2.3) mg/dL Total Bilirubin (0.2-1.3) mg/dL AST (14-36) U/L ALT (4-34) U/L Alkaline Phosphatase (38-126) U/L Troponin I <0.012 (0.000-0.034) ng/mL NT-Pro-B Natriuret Pep pg/mL Total Protein (6.3-8.2) g/dL Albumin (3.5-5.0) g/dL Lipase (23-300) U/L Disposition Clinical Impression: Chest pain Disposition: ADMITTED IP TO THIS HOSP Condition: Stable Is patient prescribed a controlled substance at d/c from ED?: No Referrals: Nate Melo MD [Primary Care Provider] - 1-2 days Time of Disposition: 22:40
[2022-10-01 21:31] LABS: Basophils # (A) 0.1 k/uL (0-0.2); Basophils % (A) 1 %; Eosinophils # (A) 0.1 k/uL (0-0.7); Eosinophils % (A) 2 %; HCT 39.6 % (34.0-46.0); HGB 13.5 gm/dL (11.4-16.0); Lymphocytes # (A) 0.7 k/uL (1.0-4.8); Lymphocytes % (A) 12 %; MCH 31.4 pg (25.0-35.0); MCHC 34.1 g/dL (31.0-37.0); MCV 92.1 fL (80.0-100.0); Mean Platelet Volume 7.3; Monocytes # (A) 0.2 k/uL (0-1.0); Monocytes % (A) 4 %; Neutrophils # (A) 4.8 k/uL (1.3-7.7); Neutrophils % (A) 80 %; Platelet Count 177 k/uL (150-450); RDW 13.3 % (11.5-15.5)
[2022-10-01 21:43] LABS: ALT 24 U/L (4-34); AST 32 U/L (14-36); African American GFR (CKD) >90 (>60 ml/min/1.73 sqM); Albumin 4.1 g/dL (3.5-5.0); Alkaline Phosphatase 103 U/L (38-126); Anion Gap 8 mmol/L; Blood Urea Nitrogen 22 mg/dL (7-17); Carbon Dioxide 24 mmol/L (22-30); Chloride 106 mmol/L (98-107); Glucose 132 mg/dL (74-99); Lipase 151 U/L (23-300); Non-African American GFR(CKD) 84 (>60 ml/min/1.73 sqM); Potassium 3.7 mmol/L (3.5-5.1); Sodium 138 mmol/L (137-145); Total Bilirubin 0.5 mg/dL (0.2-1.3); Total Protein 6.9 g/dL (6.3-8.2)
[2022-10-01 21:45] LABS: INR 0.9 (<1.2); Prothrombin Time 9.9 sec (9.0-12.0)
--- NOTE | 2022-10-01 21:50 | XR ---
EXAMINATION TYPE: XR chest 2V DATE OF EXAM: 10/01/2022 9:40 PM COMPARISON: Chest radiographs from 12/03/2019 TECHNIQUE: XR chest 2V Frontal and lateral views of the chest. CLINICAL INDICATION:Female, 77 years old with history of Chest Pain; FINDINGS: Lungs/Pleura: There is no evidence of pleural effusion, focal consolidation, or pneumothorax. Pulmonary vascularity: Unremarkable. Heart/mediastinum: Cardiomediastinal silhouette is unremarkable. Musculoskeletal: No acute osseous pathology. IMPRESSION: No acute cardiopulmonary disease/process.
[2022-10-01 21:52] LABS: NT-Pro-B-Type Natriuretic Pept 181 pg/mL
[2022-10-01 22:05] LABS: Partial Thromboplastin Time 19.9 sec (22.0-30.0)
[2022-10-01] MEDS ORDERED: ONDANSETRON 4 MG/2 ML VIAL IVP STA (22:37)
[2022-10-01] MEDS ORDERED: ACETAMINOPHEN TAB 325 MG TAB PO PRN (22:37)
[2022-10-01] MEDS ORDERED: ONDANSETRON 4 MG/2 ML VIAL IVP PRN (22:37)
[2022-10-01] MEDS ORDERED: NALOXONE 0.4 MG/ML 1 ML VIAL IV PRN (22:37)
[2022-10-02 07:56] VITALS: BP 139/77; PULSE 63; RESP 18; TEMP 97.9
[2022-10-02] MEDS ORDERED: LORazepam 0.5 MG TAB PO PRN (08:24)
--- NOTE | 2022-10-02 08:48 | P.HPIM ---
History of Present Illness H&P Date: 10/02/22 Chief Complaint: Atypical chest pain. This is history 77-year-old white female who has an underlying history of epilepsy. History of chronic migraine and history of CAD in the past who had stress testing done about a year ago. She was admitted secondary to severe chest pain. However, after discussing with her and her she's had significant stress because of the recent of her sister. After having evaluation enzymatic elevation was not noted. Cardiology evaluation was appreciated and due to her history of odd blurry vision and right carotid artery stenosis that they're following we will repeat appropriate testing on this today. No episodes of seizures recently. Review of Systems All systems: negative Cardiovascular: Reports as per HPI, Reports chest pain Past Medical History Past Medical History: CVA/TIA, Hypertension, Seizure Disorder, Thyroid Disorder Additional Past Medical History / Comment(s): TIA , BLOOD IN STOOL, CYST ON KIDNEY ON XRAY", back pain, COLITIS DX AT AGE 25 History of Any Multi-Drug Resistant Organisms: None Reported Past Surgical History: Heart Catheterization With Stent, Hysterectomy Additional Past Surgical History / Comment(s): 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 Past Psychological History: No Psychological Hx Reported Smoking Status: Never smoker Past Alcohol Use History: None Reported Past Drug Use History: None Reported - Past Family History Mother Family Medical History: Congestive Heart Failure (CHF), Dementia, Renal Disease Additional Family Medical History / Comment(s): in her 90s Father Family Medical History: Coronary Artery Disease (CAD) Medications and Allergies Home Medications Medication Instructions Recorded Confirmed Type LORazepam [Ativan] 0.5 mg PO DAILY PRN 09/10/15 10/01/22 History Levothyroxine Sodium [Synthroid] 75 mcg PO HS@2200 09/10/15 10/01/22 History Losartan Potassium 100 mg PO DAILY 09/10/15 10/01/22 History OXcarbazepine [Trileptal] 300 mg PO HS 09/10/15 10/01/22 History Aspirin EC [Ecotrin] 81 mg PO DAILY 12/02/19 10/01/22 History Clopidogrel [Plavix] 75 mg PO DAILY@1200 04/19/22 10/01/22 History Evolocumab [Repatha Syringe] 140 mg INJ Q14D 04/19/22 10/01/22 History Ezetimibe [Zetia] 10 mg PO HS 04/19/22 10/01/22 History Metoprolol Tartrate [Lopressor] 50 mg PO BID 04/19/22 10/01/22 History amLODIPine 10 mg PO HS 04/19/22 10/01/22 History Multivit-Min/FA/Lycopen/Lutein 1 tab PO DAILY 10/01/22 10/01/22 History [Centrum Silver Tablet] Allergies Allergy/AdvReac Type Severity Reaction Status Date / Time azithromycin Allergy Diarrhea Verified 10/01/22 22:52 carvedilol Allergy Dyspnea Verified 10/01/22 22:52 clindamycin Allergy Diarrhea Verified 10/01/22 22:52 diltiazem Allergy Dyspnea Verified 10/01/22 22:52 diphenhydramine Allergy Unknown Verified 10/01/22 22:52 [From Benadryl] hydrochlorothiazide Allergy Unknown Verified 10/01/22 22:52 iron Allergy Unknown Verified 10/01/22 22:52 methylprednisolone Allergy Diarrhea Verified 10/01/22 22:52 [From Medrol] omega-3 acid ethyl esters Allergy Unknown Verified 10/01/22 22:52 Penicillins Allergy Diarrhea Verified 10/01/22 22:52 tramadol Allergy Unknown Verified 10/01/22 22:52 atorvastatin [From Lipitor] AdvReac Unknown Verified 10/01/22 22:52 ciprofloxacin [From Cipro] AdvReac SEIZURE Verified 10/01/22 22:52 LIKE ACTIVITY" hydralazine AdvReac Unknown Verified 10/01/22 22:52 metronidazole [From Flagyl] AdvReac SEIZURE Verified 10/01/22 22:52 LIKE ACTIVITY nitroglycerin AdvReac Seizure Verified 10/01/22 22:52 with Patch pantoprazole AdvReac Unknown Verified 10/01/22 22:52 rosuvastatin [From Crestor] AdvReac Unknown Verified 10/01/22 22:52 Xrianez-IWL-NxT Reductase AdvReac Unknown Verified 10/01/22 22:52 Inhibitor Physical Exam Vitals: Vital Signs Temp Pulse Pulse Resp BP BP Pulse Ox 10/02/22 07:00 97.9 F 63 18 139/77 95 10/02/22 02:26 97.8 F 57 L 17 155/71 98 10/01/22 23:10 97.6 F 63 18 178/77 95 10/01/22 22:01 62 20 160/60 97 10/01/22 21:04 97.9 F 67 20 155/59 98 Intake and Output 10/01/22 10/02/22 10/02/22 22:59 06:59 14:59 Other: # Voids 1 Weight 88.451 kg - Constitutional General appearance: cooperative, no acute distress - EENT Eyes: EOMI - Neck Neck: no lymphadenopathy - Respiratory Respiratory: bilateral: diminished - Cardiovascular Rhythm: regular Heart sounds: normal: S1, S2 Abnormal Heart Sounds: no S3 Gallop - Gastrointestinal General gastrointestinal: soft, no tenderness - Psychiatric Psychiatric: A&O x's 3, appropriate affect Results CBC & Chem 7: 10/01/22 21:14 10/01/22 21:14 Labs: Abnormal Lab Results - Last 24 Hours (Table) 10/01/22 10/01/22 10/01/22 Range/Units 21:14 21:14 21:14 Lymphocytes # 0.7 L (1.0-4.8) k/uL APTT 19.9 L (22.0-30.0) sec BUN 22 H (7-17) mg/dL Glucose 132 H (74-99) mg/dL Assessment and Plan (1) Grief reaction Current Visit: Yes Status: Acute Code(s): F43.21 - ADJUSTMENT DISORDER WITH DEPRESSED MOOD SNOMED Code(s): 194668485 (2) Chest pain Current Visit: Yes Status: Acute Code(s): R07.9 - CHEST PAIN, UNSPECIFIED SNOMED Code(s): 56676187 (3) Headache Current Visit: No Status: Acute Code(s): R51 - HEADACHE * DO NOT USE * SNOMED Code(s): 30910363 (4) History of benign neoplasm of brain Current Visit: No Status: Chronic Code(s): Z86.011 - PERSONAL HISTORY OF BENIGN NEOPLASM OF THE BRAIN SNOMED Code(s): 731818636 (5) Seizure disorder Current Visit: No Status: Chronic Code(s): G40.909 - EPILEPSY, UNSP, NOT INTRACTABLE, WITHOUT STATUS EPILEPTICUS SNOMED Code(s): 842966394 Plan: I am in agreement with the current workup. We will hopefully discharge carotid duplex is nominal. Reconcile home medications. Prognosis is excellent at this time given her improvement. Long discussion with family about recent and grief reaction related to the of her sister Time with Patient: Greater than 30
--- NOTE | 2022-10-02 08:51 | P.DS ---
Providers Date of admission: 10/01/22 22:37 Attending physician: Nate Melo Consults: 10/01/22 22:37 Consult Physician Routine Consulting Provider: John Ward Consult Reason/Comments: CP Do you want consulting provider notified?: Yes Primary care physician: Nate Melo - Discharge Diagnosis(es) (1) Grief reaction Current Visit: Yes Status: Acute (2) Chest pain Current Visit: Yes Status: Acute (3) Headache Current Visit: No Status: Acute (4) History of benign neoplasm of brain Current Visit: No Status: Chronic (5) Seizure disorder Current Visit: No Status: Chronic Hospital Course: This is a discharge summary 77-year-old white female who was admitted for atypical type chest pain which was most likely related to overt family stress. There is a recent of her sister. No enzymatic elevation was noted. Cardiology workup was nominal but we have ordered carotid duplex given previous history and symptoms of blurred vision. She's had previous history of moderate carotid stenosis. Once this is elucidated to be unchanged and her symptoms have normalized, we will DC in stable condition to follow-up with me in 2-3 days Patient Condition at Discharge: Stable Plan - Discharge Summary New Discharge Prescriptions: Continue OXcarbazepine [Trileptal] 300 mg PO HS Losartan Potassium 100 mg PO DAILY Levothyroxine Sodium [Synthroid] 75 mcg PO HS@2200 LORazepam [Ativan] 0.5 mg PO DAILY PRN PRN Reason: Anxiety Aspirin EC [Ecotrin] 81 mg PO DAILY Multivit-Min/FA/Lycopen/Lutein [Centrum Silver Tablet] 1 tab PO DAILY amLODIPine 10 mg PO HS Ezetimibe [Zetia] 10 mg PO HS Clopidogrel [Plavix] 75 mg PO DAILY@1200 Evolocumab [Repatha Syringe] 140 mg INJ Q14D Metoprolol Tartrate [Lopressor] 50 mg PO BID Discharge Medication List LORazepam [Ativan] 0.5 mg PO DAILY PRN 09/10/15 [History] Levothyroxine Sodium [Synthroid] 75 mcg PO HS@2200 09/10/15 [History] Losartan Potassium 100 mg PO DAILY 09/10/15 [History] OXcarbazepine [Trileptal] 300 mg PO HS 09/10/15 [History] Aspirin EC [Ecotrin] 81 mg PO DAILY 12/02/19 [History] Clopidogrel [Plavix] 75 mg PO DAILY@1200 04/19/22 [History] Evolocumab [Repatha Syringe] 140 mg INJ Q14D 04/19/22 [History] Ezetimibe [Zetia] 10 mg PO HS 04/19/22 [History] Metoprolol Tartrate [Lopressor] 50 mg PO BID 04/19/22 [History] amLODIPine 10 mg PO HS 04/19/22 [History] Multivit-Min/FA/Lycopen/Lutein [Centrum Silver Tablet] 1 tab PO DAILY 10/01/22 [History] Follow up Appointment(s)/Referral(s): John Ward MD [STAFF PHYSICIAN] - 1 Week Nate Melo MD [Primary Care Provider] - 1-2 days Discharge Disposition: HOME SELF-CARE
[2022-10-02] MEDS ORDERED: ASPIRIN 81 MG PO SCH (09:00)
[2022-10-02] MEDS ORDERED: MULTIVITAMINS, THERA 1 EACH TAB PO SCH (09:00)
[2022-10-02] MEDS ORDERED: LOSARTAN 50 MG TAB PO SCH (09:00)
[2022-10-02] MEDS ORDERED: METOPROLOL TARTRATE 50 MG TAB PO SCH (09:00)
--- NOTE | 2022-10-02 09:20 | US ---
EXAMINATION TYPE: US carotid duplex BILAT DATE OF EXAM: 10/02/2022 COMPARISON: CTa 2020 CLINICAL INDICATION: Female, 77 years old with history of visual changes; Visual changes, hx right ca rotid endarterectomy 2020, hx hypertension, hyperlipidemia. TECHNIQUE: Carotid duplex ultrasound examination. Indirect Doppler criteria was utilized. FINDINGS: EXAM MEASUREMENTS: RIGHT: Peak Systolic Velocity (PSV) cm/sec ----- Right CCA: 61.9 ----- Right ICA: 114.7 ----- Right ECA: 122.1 ICA/CCA ratio: 1.9 RIGHT: End Diastole cm/sec ----- Right CCA: 5.1 ----- Right ICA: 13.7 ----- Right ECA: 0.0 LEFT: Peak Systolic Velocity (PSV) cm/sec ----- Left CCA: 83.1 ----- Left ICA: 201.2 ----- Left ECA: 158.9 ICA/CCA ratio: 2.4 LEFT: End Diastole cm/sec ----- Left CCA: 12.8 ----- Left ICA: 43.2 ----- Left ECA: 17.0 VERTEBRALS (direction of flow): Right Vertebral: Antegrade Left Vertebral: Antegrade Rhythm: Normal WIRE COMMUNICATIONS ENGINEER NOTES: Intimal thickening seen bilaterally. Plaque seen within left bulb and left prox ICA. Narrowing seen left proximal ICA. Elevated velocities within left prox CCA, left ICA, and left E CA. IMPRESSION: No evidence for hemodynamically significant stenosis at this time. Criteria for Assigning % of Stenosis / Diameter reduction (Estimation based on the indirect measurements of the internal carotid artery velocities (ICA PSV). 1. Normal (no stenosis)=ICA PSV < 125 cm/s: ratio < 2.0: ICA EDV<40 cm/s. 2. Less than 50% stenosis=ICA PSV < 125 cm/s: ratio < 2.0: ICA EDV<40 cm/s. 3. 50 to 69% stenosis=ICA PSV of 125 to 230 cm/s: ration 2.0 ? 4.0: ICA EDV 40-100 cm/s. 4. Greater than 70% stenosis to near occlusion= ICA PSV > 230 cm/s: ratio > 4.0: ICA EDV > 100 cm/s. 5. Near occlusion= ICA PSV velocities may be low or undetectable: variable ratio and ICA EDV. 6. Total occlusion=unable to detect flow.
[2022-10-02] MEDS ORDERED: CLOPIDOGREL 75 MG TAB PO SCH (12:00)
[2022-10-02] MEDS ORDERED: OXcarbazepine 300 MG TAB PO SCH (21:00)
[2022-10-02] MEDS ORDERED: EZETIMIBE 10 MG TAB PO SCH (21:00)
[2022-10-02] MEDS ORDERED: amLODIPine 10 MG TAB PO SCH (21:00)
[2022-10-02] MEDS ORDERED: LEVOTHYROXINE 50 MCG TAB PO SCH (22:00)
== END 2022-10-02 10:23 | disposition home or self-care (01) ==
LOC: EC 21:03 → 6NMEDSUR 22:37
PROVIDERS: ADMIT Family Medicine; ATTEND Family Medicine
DX: R07.89 Other chest pain (principal); F43.20 Adjustment disorder, unspecified; G43.909 Migraine, unspecified, not intractable, without status migrainosus; G40.909 Epilepsy, unspecified, not intractable, without status epilepticus; I25.10 Atherosclerotic heart disease of native coronary artery without angina pectoris; I10 Essential (primary) hypertension; Z86.011 Personal history of benign neoplasm of the brain; Z86.73 Personal history of transient ischemic attack (TIA), and cerebral infarction without residual deficits; Z95.5 Presence of coronary angioplasty implant and graft; Z79.899 Other long term (current) drug therapy; Z79.890 Hormone replacement therapy; Z79.82 Long term (current) use of aspirin; Z88.1 Allergy status to other antibiotic agents; Z88.0 Allergy status to penicillin; Z88.5 Allergy status to narcotic agent; Z82.49 Family history of ischemic heart disease and other diseases of the circulatory system
CPT/HCPCS: 96374; 99285; 36415; 93005; 83880; 80053; 83690; 83735; 84484 ×2; 85025; 85610; 85730; 71046; 93880; G0378 ×2; J2405

== ENCOUNTER 2022-12-24 16:11 | Observation (INO) | payer MEDICARE ==
[2022-12-24 16:24] LABS: Glucose,Whole Blood 133 mg/dL (70-110)
--- NOTE | 2022-12-24 16:37 | ED ---
General Adult HPI - General Chief complaint: Weakness Stated complaint: Weakness Time Seen by Provider: 12/24/22 16:11 Source: patient, EMS, RN notes reviewed, old records reviewed Mode of arrival: EMS Limitations: no limitations - History of Present Illness Initial comments: This is a 77-year-old female presents emergency stating that she was diagnosed with strep throat today and when she went home she was taking her pills with bread and eventually vomited them back up and her doctor recommended she come to the emergency department. Patient states she then felt very weak all over and started having chest pain. Patient initially thought she was having left-sided weakness but on further evaluation she is weak all over she states. Legs and arms she doesn't have any focal deficit. Patient denies any palpitations. Patient denies being short of breath. Patient states she's also very nauseated. Patient denies any headache. Patient denies any focal numbness or weakness. Patient denies any slurred speech. - Related Data Home Medications Medication Instructions Recorded Confirmed LORazepam [Ativan] 0.5 mg PO DAILY PRN 09/10/15 10/01/22 Levothyroxine Sodium [Synthroid] 75 mcg PO HS@2200 09/10/15 10/01/22 Losartan Potassium 100 mg PO DAILY 09/10/15 10/01/22 OXcarbazepine [Trileptal] 300 mg PO HS 09/10/15 10/01/22 Aspirin EC [Ecotrin] 81 mg PO DAILY 12/02/19 10/01/22 Clopidogrel [Plavix] 75 mg PO DAILY@1200 04/19/22 10/01/22 Evolocumab [Repatha Syringe] 140 mg INJ Q14D 04/19/22 10/01/22 Ezetimibe [Zetia] 10 mg PO HS 04/19/22 10/01/22 Metoprolol Tartrate [Lopressor] 50 mg PO BID 04/19/22 10/01/22 amLODIPine 10 mg PO HS 04/19/22 10/01/22 Multivit-Min/FA/Lycopen/Lutein 1 tab PO DAILY 10/01/22 10/01/22 [Centrum Silver Tablet] Allergies Allergy/AdvReac Type Severity Reaction Status Date / Time azithromycin Allergy Diarrhea Verified 10/01/22 22:52 carvedilol Allergy Dyspnea Verified 10/01/22 22:52 clindamycin Allergy Diarrhea Verified 10/01/22 22:52 diltiazem Allergy Dyspnea Verified 10/01/22 22:52 diphenhydramine Allergy Unknown Verified 10/01/22 22:52 [From Benadryl] hydrochlorothiazide Allergy Unknown Verified 10/01/22 22:52 iron Allergy Unknown Verified 10/01/22 22:52 methylprednisolone Allergy Diarrhea Verified 10/01/22 22:52 [From Medrol] omega-3 acid ethyl esters Allergy Unknown Verified 10/01/22 22:52 Penicillins Allergy Diarrhea Verified 10/01/22 22:52 tramadol Allergy Unknown Verified 10/01/22 22:52 atorvastatin [From Lipitor] AdvReac Unknown Verified 10/01/22 22:52 ciprofloxacin [From Cipro] AdvReac SEIZURE Verified 10/01/22 22:52 LIKE ACTIVITY" hydralazine AdvReac Unknown Verified 10/01/22 22:52 metronidazole [From Flagyl] AdvReac SEIZURE Verified 10/01/22 22:52 LIKE ACTIVITY nitroglycerin AdvReac Seizure Verified 10/01/22 22:52 with Patch pantoprazole AdvReac Unknown Verified 10/01/22 22:52 rosuvastatin [From Crestor] AdvReac Unknown Verified 10/01/22 22:52 [id number] Reductase AdvReac Unknown Verified 10/01/22 22:52 Inhibitor Review of Systems ROS Statement: Those systems with pertinent positive or pertinent negative responses have been documented in the HPI. ROS Other: All systems not noted in ROS Statement are negative. 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 Past Psychological History: No Psychological Hx Reported Smoking Status: Never smoker Past Alcohol Use History: None Reported Past Drug Use History: None Reported - Past Family History Mother Family Medical History: Congestive Heart Failure (CHF), Dementia, Renal Disease Additional Family Medical History / Comment(s): in her 90s Father Family Medical History: Coronary Artery Disease (CAD) General Exam - General Exam Comments Initial Comments: GENERAL: Patient is well-developed and well-nourished. Patient is nontoxic and well-h ydrated and is in mild distress. ENT: Neck is soft and supple. No significant lymphadenopathy is noted. Oropharynx is clear. Moist mucous membranes. Neck has full range of motion without eliciting any pain. EYES: The sclera were anicteric and conjunctiva were pink and moist. Extraocular mov ements were intact and pupils were equal round and reactive to light. Eyelids were unremarkable. PULMONARY: Unlabored respirations. Good breath sounds bilaterally. No audible rales rhonchi or wheezing was noted. CARDIOVASCULAR: There is a regular rate and rhythm without any murmurs gallops or rubs. ABDOMEN: Soft and nontender with normal bowel sounds. SKIN: Skin is clear with no lesions or rashes and otherwise unremarkable. NEUROLOGIC: Patient is alert and oriented x3. Cranial nerves II through XII are grossly intact. Motor and sensory are also intact. Normal speech, volume and content. Symmetrical smile. Heel to casey testing was equal bilaterally. Patient has an NIH of 0 MUSCULOSKELETAL: Normal extremities with adequate strength and full range of motion. LYMPHATICS: No significant lymphadenopathy is noted PSYCHIATRIC: Normal psychiatric evaluation. Limitations: no limitations Course Vital Signs 12/24/22 12/24/22 12/24/22 16:17 16:37 16:52 Temperature 99 F 99 F Pulse Rate 93 91 93 Respiratory 18 18 18 Rate Blood Pressure 159/57 168/61 177/76 O2 Sat by Pulse 95 94 L 96 Oximetry 12/24/22 12/24/22 17:22 17:52 Temperature Pulse Rate 99 97 Respiratory 20 18 Rate Blood Pressure 166/70 181/64 O2 Sat by Pulse 95 96 Oximetry Medical Decision Making - Medical Decision Making EKG was interpreted by myself. EKG shows sinus rhythm at 91 bpm TN interval 269 QRS is 96 QT interval 358 QTC is 46 per patient's EKG shows no ST segment elevation or depression. Was pt. sent in by a medical professional or institution (, PA, INSIDE SALES PROFESSIONAL, urgent care, hospital, or assisted...) When possible be specific @ -Patient was sent in by her primary medical care doctor Did you speak to anyone other than the patient for history (EMS, parent, family, police, friend...)? What history was obtained from this source @ -No Did you review nursing and triage notes (agree or disagree)? Why? @ -I reviewed and agree with nursing and triage notes Were old charts reviewed (outside hosp., previous admission, EMS record, old EKG, old radiological studies, urgent care reports/EKG's, assisted records)? Report findings @ -I reviewed old charts old labwork on this patient Differential Diagnosis (chest pain, altered mental status, abdominal pain women, abdominal pain men, vaginal bleeding, weakness, fever, dyspnea, syncope, headache, dizziness, GI bleed, back pain, seizure, CVA, palpatations, mental health, musculoskeletal)? @ -Differential Weakness: Hypoglycemia, shock, sepsis, hyponatremia, anemia, infection, [place], ETOH, adverse medicine reaction, overdose, stroke, this is not meant to be an all-inclusive list. EKG interpreted by me (3pts min.). @ -As above X-rays interpreted by me (1pt min.). @ -X-ray shows no acute abnormality CT interpreted by me (1pt min.). @ -CT of the brain shows no acute abnormality U/S interpreted by me (1pt. min.). @ -None done What testing was considered but not performed or refused? (CT, X-rays, U/S, l abs)? Why? @ -None What meds were considered but not given or refused? Why? @ -None Did you discuss the management of the patient with other professionals (professionals i.e. , PA, INSIDE SALES PROFESSIONAL, lab, RT, psych nurse, neonatal social worker, procurement clerk, teacher, operations officer trust department, piano case and bench assembler)? Give summary @ -I spoke with Dr. Melo and he agreed to admit the patient Was smoking cessation discussed for >3mins.? @ -No Was critical care preformed (if so, how long)? @ -No Were there social determinants of health that impacted care today? How? (Homelessness, low income, unemployed, alcoholism, drug addiction, transportation, low edu. Level, literacy, decrease access to med. care, [facility], rehab)? @ -No Was there de-escalation of care discussed even if they declined (Discuss DNR or withdrawal of care, Hospice)? DNR status @ -No What co-morbidities impacted this encounter? (DM, HTN, Smoking, COPD, CAD, Cancer, CVA, ARF, Chemo, Hep., AIDS, mental health diagnosis, sleep apnea, morbid obesity)? @ -None Was patient admitted / discharged? Hospital course, mention meds given and route, prescriptions, significant lab abnormalities, going to OR and other pertinent info. @ -Patient's lab work showed that she was cold with positive. Patient felt like she was too weak to go home at this time I spoke to Dr. HODGE and he agreed to admit the patient. Undiagnosed new problem with uncertain prognosis? @ -No Drug Therapy requiring intensive monitoring for toxicity (Heparin, Nitro, Insulin, Cardizem)? @ -No Were any procedures done? @ -No Diagnosis/symptom? @ -COVID-19 Acute, or Chronic, or Acute on Chronic? @ -Acute Uncomplicated (without systemic symptoms) or Complicated (systemic symptoms)? @ -Complicated Side effects of treatment? @ -No Exacerbation, Progression, or Severe Exacerbation? @ -No Poses a threat to life or bodily function? How? (Chest pain, [place], [place], pneumonia, PE, COPD, DKA, ARF, appy, cholecystitis, CVA, Diverticulitis, Homicidal, Suicidal, threat to staff... and all critical care pts) @ -No Diagnosis/symptom? @ -Chest pain Acute, or Chronic, or Acute on Chronic? @ -Acute Uncomplicated (without systemic symptoms) or Complicated (systemic symptoms)? @ -Complicated Side effects of treatment? @ -none Exacerbation, Progression, or Severe Exacerbation] @ -no Poses a threat to life or bodily function? @ -no - Lab Data Result diagrams: 12/24/22 16:41 12/24/22 16:41 Lab Results 12/24/22 12/24/22 12/24/22 Range/Units 16:18 16:41 16:41 WBC 9.2 (3.8-10.6) k/uL RBC 4.77 (3.80-5.40) m/uL Hgb 15.0 (11.4-16.0) gm/dL Hct 44.5 (34.0-46.0) % MCV 93.4 (80.0-100.0) fL MCH 31.4 (25.0-35.0) pg MCHC 33.6 (31.0-37.0) g/dL RDW 12.9 (11.5-15.5) % Plt Count 223 (150-450) k/uL MPV 6.8 Neutrophils % 90 % Lymphocytes % 4 % Monocytes % 4 % Eosinophils % 1 % Basophils % 1 % Neutrophils # 8.3 H (1.3-7.7) k/uL Lymphocytes # 0.4 L (1.0-4.8) k/uL Monocytes # 0.4 (0-1.0) k/uL Eosinophils # 0.1 (0-0.7) k/uL Basophils # 0.0 (0-0.2) k/uL PT 10.1 (10.0-12.5) sec INR 0.9 (<1.2) APTT 24.2 (22.0-30.0) sec Sodium (137-145) mmol/L Potassium (3.5-5.1) mmol/L Chloride (98-107) mmol/L Carbon Dioxide (22-30) mmol/L Anion Gap mmol/L BUN (7-17) mg/dL Creatinine (0.52-1.04) mg/dL Est GFR (CKD-EPI)AfAm (>60 ml/min/1.73 sqM) Est GFR (CKD-EPI)NonAf (>60 ml/min/1.73 sqM) Glucose (74-99) mg/dL POC Glucose (mg/dL) 133 H (70-110) mg/dL POC Glu Lobby Attendant ID Mehta, Catarino Calcium (8.4-10.2) mg/dL Total Bilirubin (0.2-1.3) mg/dL AST (14-36) U/L ALT (4-34) U/L Alkaline Phosphatase (38-126) U/L Creatine Kinase (30-135) U/L Troponin I (0.000-0.034) ng/mL Total Protein (6.3-8.2) g/dL Albumin (3.5-5.0) g/dL Influenza Type A (PCR) (Not Detectd) Influenza Type B (PCR) (Not Detectd) RSV (PCR) (Not Detectd) SARS-CoV-2 (PCR) (Not Detectd) 12/24/22 12/24/22 12/24/22 Range/Units 16:41 16:41 16:59 WBC (3.8-10.6) k/uL RBC (3.80-5.40) m/uL Hgb (11.4-16.0) gm/dL Hct (34.0-46.0) % MCV (80.0-100.0) fL MCH (25.0-35.0) pg MCHC (31.0-37.0) g/dL RDW (11.5-15.5) % Plt Count (150-450) k/uL MPV Neutrophils % % Lymphocytes % % Monocytes % % Eosinophils % % Basophils % % Neutrophils # (1.3-7.7) k/uL Lymphocytes # (1.0-4.8) k/uL Monocytes # (0-1.0) k/uL Eosinophils # (0-0.7) k/uL Basophils # (0-0.2) k/uL PT (10.0-12.5) sec INR (<1.2) APTT (22.0-30.0) sec Sodium 139 (137-145) mmol/L Potassium 4.3 (3.5-5.1) mmol/L Chloride 104 (98-107) mmol/L Carbon Dioxide 24 (22-30) mmol/L Anion Gap 11 mmol/L BUN 20 H (7-17) mg/dL Creatinine 0.69 (0.52-1.04) mg/dL Est GFR (CKD-EPI)AfAm >90 (>60 ml/min/1.73 sqM) Est GFR (CKD-EPI)NonAf 84 (>60 ml/min/1.73 sqM) Glucose 123 H (74-99) mg/dL POC Glucose (mg/dL) (70-110) mg/dL POC Glu Lobby Attendant ID Calcium 9.8 (8.4-10.2) mg/dL Total Bilirubin 0.7 (0.2-1.3) mg/dL AST 36 (14-36) U/L ALT 20 (4-34) U/L Alkaline Phosphatase 101 (38-126) U/L Creatine Kinase 52 (30-135) U/L Troponin I <0.012 (0.000-0.034) ng/mL Total Protein 7.6 (6.3-8.2) g/dL Albumin 4.6 (3.5-5.0) g/dL Influenza Type A (PCR) Not Detected (Not Detectd) Influenza Type B (PCR) Not Detected (Not Detectd) RSV (PCR) Not Detected (Not Detectd) SARS-CoV-2 (PCR) Detected A (Not Detectd) Disposition Clinical Impression: COVID-19, Chest pain Disposition: ADMITTED IP TO THIS HOSP Referrals: Nate Melo MD [Primary Care Provider] - 1-2 days Time of Disposition: 18:50
--- NOTE | 2022-12-24 17:03 | CT ---
EXAMINATION TYPE: CT brain wo con CT DLP: 1128.4 mGycm, Automated exposure control for dose reduction was used. DATE OF EXAM: 12/24/2022 4:54 PM COMPARISON: CT brain 12/01/2020 CLINICAL INDICATION:Female, 77 years old with history of Neuro deficit , acute, stroke suspected, weakness, nausea and vomiting after taking azithromycin on empty stomach. TECHNIQUE: Brain: Multiple axial CT images of the brain were obtained without IV contrast. Coronal and sagittal reformats reviewed. FINDINGS: Brain: Extra-axial spaces: Redemonstration of prominent CSF posterior to the lower left parietal occipital l obe is unchanged. 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 No new extra-axial fluid collections. Ventricular system: Within normal limits Cerebral parenchyma: Cerebral atrophy. No acute intraparenchymal hemorrhage or mass effect. The rodrigez -white junction is well differentiated. Scattered hypoattenuating areas are seen within the white mat ter. Cerebellum: Unremarkable. Mass effect: No evidence of midline shift. Intracranial vasculature: Atherosclerotic calcifications of the intracranial vessels. Soft tissues: Normal. Calvarium/osseous structures: No depressed skull fracture. Postsurgical changes of the left parietal bone posteriorly. Paranasal sinuses and mastoid air cells: Mild scattered paranasal sinus disease. Visualized orbits: Bilateral aphakia IMPRESSION: 1. No acute intracranial process. 2. Nonspecific white matter changes, likely secondary to chronic small vessel ischemic disease. 3. 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
--- NOTE | 2022-12-24 17:08 | XR ---
EXAMINATION TYPE: XR chest 2V DATE OF EXAM: 12/24/2022 5:04 PM COMPARISON: Chest radiographs from 10/01/2022 TECHNIQUE: XR chest 2V Frontal and lateral views of the chest. CLINICAL INDICATION:Female, 77 years old with history of altered mental status; FINDINGS: Lungs/Pleura: There is no evidence of pleural effusion, focal consolidation, or pneumothorax. Pulmonary vascularity: Unremarkable. Heart/mediastinum: Cardiomediastinal silhouette is unremarkable. Atherosclerotic calcifications are seen in the aorta. Musculoskeletal: No acute osseous pathology. IMPRESSION: No acute cardiopulmonary disease/process.
[2022-12-24 17:32] LABS: Basophils % (A) 1 %; Eosinophils # (A) 0.1 k/uL (0-0.7); Eosinophils % (A) 1 %; HCT 44.5 % (34.0-46.0); Lymphocytes # (A) 0.4 k/uL (1.0-4.8); Lymphocytes % (A) 4 %; MCH 31.4 pg (25.0-35.0); MCHC 33.6 g/dL (31.0-37.0); MCV 93.4 fL (80.0-100.0); Mean Platelet Volume 6.8; Monocytes # (A) 0.4 k/uL (0-1.0); Monocytes % (A) 4 %; Neutrophils # (A) 8.3 k/uL (1.3-7.7); Neutrophils % (A) 90 %; Platelet Count 223 k/uL (150-450); RBC 4.77 m/uL (3.80-5.40); RDW 12.9 % (11.5-15.5); WBC 9.2 k/uL (3.8-10.6)
[2022-12-24 17:48] LABS: INR 0.9 (<1.2); Partial Thromboplastin Time 24.2 sec (22.0-30.0); Prothrombin Time 10.1 sec (10.0-12.5)
[2022-12-24] MEDS ORDERED: ONDANSETRON 4 MG/2 ML VIAL IVP STA (17:56)
[2022-12-24 17:57] LABS: ALT 20 U/L (4-34); African American GFR (CKD) >90 (>60 ml/min/1.73 sqM); Anion Gap 11 mmol/L; Blood Urea Nitrogen 20 mg/dL (7-17); Calcium 9.8 mg/dL (8.4-10.2); Carbon Dioxide 24 mmol/L (22-30); Chloride 104 mmol/L (98-107); Creatine Kinase 52 U/L (30-135); Glucose 123 mg/dL (74-99); Non-African American GFR(CKD) 84 (>60 ml/min/1.73 sqM); Sodium 139 mmol/L (137-145); Total Bilirubin 0.7 mg/dL (0.2-1.3)
[2022-12-24 18:11] LABS: AST 36 U/L (14-36); Albumin 4.6 g/dL (3.5-5.0); Alkaline Phosphatase 101 U/L (38-126); Potassium 4.3 mmol/L (3.5-5.1); Total Protein 7.6 g/dL (6.3-8.2)
[2022-12-24] MEDS ORDERED: SODIUM CHLORIDE 0.9% 1,000 ML IV STA (18:12)
[2022-12-24] MEDS ORDERED: IBUPROFEN 600 MG TAB PO STA (18:12)
[2022-12-24] MEDS ORDERED: ACETAMINOPHEN TAB 500 MG TAB PO STA (18:12)
--- NOTE | 2022-12-25 08:25 | P.HPIM ---
History of Present Illness H&P Date: 12/25/22 Chief Complaint: ALLERGIC reaction The patient 77-year-old white female with history of seizure disorder and headaches who came in yesterday with upper rest or infection. She was treated with Zithromax but then had perceived ALLERGY reaction with vomiting. The called me and said that she had some slight difficulty swallowing liquids. So she was evaluated for reaction. During evaluation she was positive for Covid. She now is seen in the ER swallowing appropriately no difficulty breathing pulse oximetry is normal blood pressure is elevated however. No fever but fatigue is noted. Review of Systems Constitutional: Denies chills, Denies fever Eyes: denies blurred vision, denies pain Ears, nose, mouth and throat: Reports headache, Reports sore throat Cardiovascular: Denies chest pain, Denies shortness of breath Past Medical History Past Medical History: CVA/TIA, Hypertension, Seizure Disorder, Thyroid Disorder Additional Past Medical History / Comment(s): TIA , BLOOD IN STOOL, CYST ON KIDNEY ON XRAY", back pain, COLITIS DX AT AGE 25 History of Any Multi-Drug Resistant Organisms: None Reported Past Surgical History: Heart Catheterization With Stent, Hysterectomy Additional Past Surgical History / Comment(s): 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 Past Psychological History: No Psychological Hx Reported Smoking Status: Never smoker Past Alcohol Use History: None Reported Past Drug Use History: None Reported - Past Family History Mother Family Medical History: Congestive Heart Failure (CHF), Dementia, Renal Disease Additional Family Medical History / Comment(s): in her 90s Father Family Medical History: Coronary Artery Disease (CAD) Medications and Allergies Home Medications Medication Instructions Recorded Confirmed Type LORazepam [Ativan] 0.5 mg PO DAILY PRN 09/10/15 12/24/22 History Levothyroxine Sodium [Synthroid] 75 mcg PO DAILY 09/10/15 12/24/22 History Losartan Potassium 100 mg PO DAILY 09/10/15 12/24/22 History OXcarbazepine [Trileptal] 300 mg PO HS 09/10/15 12/24/22 History Clopidogrel [Plavix] 75 mg PO DAILY@1200 04/19/22 12/24/22 History Evolocumab [Repatha Syringe] 140 mg SQ Q14D 04/19/22 12/24/22 History Ezetimibe [Zetia] 10 mg PO HS 04/19/22 12/24/22 History Metoprolol Tartrate [Lopressor] 50 mg PO BID 04/19/22 12/24/22 History amLODIPine 10 mg PO HS 04/19/22 12/24/22 History Multivit-Min/FA/Lycopen/Lutein 1 tab PO DAILY 10/01/22 12/24/22 History [Centrum Silver Tablet] Aspirin EC [Ecotrin Low Dose] 81 mg PO DAILY 12/24/22 12/24/22 History Azithromycin [Zithromax Z Pack] See Taper PO DIRECTED 12/24/22 12/24/22 History Allergies Allergy/AdvReac Type Severity Reaction Status Date / Time azithromycin Allergy Diarrhea Verified 12/24/22 20:18 carvedilol Allergy Dyspnea Verified 12/24/22 20:18 clindamycin Allergy Diarrhea Verified 12/24/22 20:18 diltiazem Allergy Dyspnea Verified 12/24/22 20:18 diphenhydramine Allergy Unknown Verified 12/24/22 20:18 [From Benadryl] tramadol Allergy Unknown Verified 12/24/22 20:18 atorvastatin [From Lipitor] AdvReac Unknown Verified 12/24/22 20:18 ciprofloxacin [From Cipro] AdvReac SEIZURE Verified 12/24/22 20:18 LIKE ACTIVITY" hydralazine AdvReac Unknown Verified 12/24/22 20:18 hydrochlorothiazide AdvReac in er for Verified 12/24/22 20:18 dehydration iron AdvReac burning Verified 12/24/22 20:18 sensation methylprednisolone AdvReac Diarrhea Verified 12/24/22 20:18 [From Medrol] metronidazole [From Flagyl] AdvReac SEIZURE Verified 12/24/22 20:18 LIKE ACTIVITY nitroglycerin AdvReac Seizure Verified 12/24/22 20:18 with Patch omega-3 acid ethyl esters AdvReac stomach Verified 12/24/22 20:18 pain pantoprazole AdvReac Unknown Verified 12/24/22 20:18 Penicillins AdvReac Diarrhea Verified 12/24/22 20:18 rosuvastatin [From Crestor] AdvReac Unknown Verified 12/24/22 20:18 [id number] Reductase AdvReac Unknown Verified 12/24/22 20:18 Inhibitor Physical Exam Vitals: Vital Signs Temp Pulse Resp BP Pulse Ox 12/25/22 03:00 64 16 185/75 96 12/25/22 02:00 66 14 179/60 97 12/25/22 01:00 58 L 12 160/53 95 12/25/22 00:36 65 16 171/65 94 L 12/25/22 00:00 70 10 L 144/53 96 12/24/22 23:00 60 16 146/49 95 12/24/22 22:00 64 8 L 161/80 96 12/24/22 21:00 72 11 L 157/55 96 12/24/22 20:07 100 F H 81 12 163/44 95 12/24/22 19:07 100 F H 12/24/22 19:00 100 F H 96 10 L 150/57 94 L 12/24/22 18:37 101.5 F H 98 16 163/65 95 12/24/22 17:52 97 18 181/64 96 12/24/22 17:22 99 20 166/70 95 12/24/22 16:52 99 F 93 18 177/76 96 12/24/22 16:37 91 18 168/61 94 L 12/24/22 16:17 99 F 93 18 159/57 95 Intake and Output 12/24/22 12/25/22 12/25/22 22:59 06:59 14:59 Other: Weight 88.451 kg - Constitutional General appearance: cooperative, no no acute distress - Neck Neck: no lymphadenopathy - Respiratory Respiratory: bilateral: diminished - Cardiovascular Rhythm: regular Heart sounds: normal: S1, S2 - Gastrointestinal General gastrointestinal: soft, no tenderness Results CBC & Chem 7: 12/24/22 16:41 12/24/22 16:41 Labs: Abnormal Lab Results - Last 24 Hours (Table) 12/24/22 12/24/22 12/24/22 Range/Units 16:18 16:41 16:41 Neutrophils # 8.3 H (1.3-7.7) k/uL Lymphocytes # 0.4 L (1.0-4.8) k/uL BUN 20 H (7-17) mg/dL Glucose 123 H (74-99) mg/dL POC Glucose (mg/dL) 133 H (70-110) mg/dL SARS-CoV-2 (PCR) (Not Detectd) 12/24/22 Range/Units 16:59 Neutrophils # (1.3-7.7) k/uL Lymphocytes # (1.0-4.8) k/uL BUN (7-17) mg/dL Glucose (74-99) mg/dL POC Glucose (mg/dL) (70-110) mg/dL SARS-CoV-2 (PCR) Detected A (Not Detectd) Assessment and Plan (1) Allergic reaction caused by a drug Current Visit: Yes Status: Acute Code(s): T78.40XA - ALLERGY, UNSPECIFIED, INITIAL ENCOUNTER SNOMED Code(s): 708086145 (2) COVID-19 Current Visit: Yes Status: Acute Code(s): U07.1 - COVID-19 SNOMED Code(s): 965722976 (3) Weakness Current Visit: No Status: Acute Code(s): R53.1 - WEAKNESS SNOMED Code(s): 12775392 (4) History of benign neoplasm of brain Current Visit: No Status: Chronic Code(s): Z86.011 - PERSONAL HISTORY OF BENIGN NEOPLASM OF THE BRAIN SNOMED Code(s): 644849774 (5) Seizure disorder Current Visit: No Status: Chronic Code(s): G40.909 - EPILEPSY, UNSP, NOT INTRACTABLE, WITHOUT STATUS EPILEPTICUS SNOMED Code(s): 894805104 Plan: After evaluation, I will go ahead and discharge the patient appropriately. Reconcile home medications. Recheck in about 3-4 days.
--- NOTE | 2022-12-25 08:28 | P.DS ---
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 She had significant nausea and vomiting and due to her inability to drink appropriately, she was evaluated for ALLERGIC reaction. Workup was negative for anaphylaxis but testing showed coated positivity. She is been discharged treated stable drinking appropriately and having no significant shortness of breath. No fever. We will discharged in stable condition follow-up in 3-5 days. Patient Condition at Discharge: Stable Plan - Discharge Summary New Discharge Prescriptions: New Nirmatrelvir/Ritonavir [Paxlovid 2X150 mg-100 mg (Eua)] 3 tab PO BID #30 tab Continue OXcarbazepine [Trileptal] 300 mg PO HS Losartan Potassium 100 mg PO DAILY Levothyroxine Sodium [Synthroid] 75 mcg PO DAILY LORazepam [Ativan] 0.5 mg PO DAILY PRN PRN Reason: Anxiety Multivit-Min/FA/Lycopen/Lutein [Centrum Silver Tablet] 1 tab PO DAILY Aspirin EC [Ecotrin Low Dose] 81 mg PO DAILY amLODIPine 10 mg PO HS Ezetimibe [Zetia] 10 mg PO HS Clopidogrel [Plavix] 75 mg PO DAILY@1200 Evolocumab [Repatha Syringe] 140 mg SQ Q14D Metoprolol Tartrate [Lopressor] 50 mg PO BID Discontinued Azithromycin [Zithromax Z Pack] See Taper PO DIRECTED Discharge Medication List LORazepam [Ativan] 0.5 mg PO DAILY PRN 09/10/15 [History] Levothyroxine Sodium [Synthroid] 75 mcg PO DAILY 09/10/15 [History] Losartan Potassium 100 mg PO DAILY 09/10/15 [History] OXcarbazepine [Trileptal] 300 mg PO HS 09/10/15 [History] Clopidogrel [Plavix] 75 mg PO DAILY@1200 04/19/22 [History] Evolocumab [Repatha Syringe] 140 mg SQ Q14D 04/19/22 [History] Ezetimibe [Zetia] 10 mg PO HS 04/19/22 [History] Metoprolol Tartrate [Lopressor] 50 mg PO BID 04/19/22 [History] amLODIPine 10 mg PO HS 04/19/22 [History] Multivit-Min/FA/Lycopen/Lutein [Centrum Silver Tablet] 1 tab PO DAILY 10/01/22 [History] Aspirin EC [Ecotrin Low Dose] 81 mg PO DAILY 12/24/22 [History] Nirmatrelvir/Ritonavir [Paxlovid 2X150 mg-100 mg (Eua)] 3 tab PO BID #30 tab 12/25/22 [Rx] Follow up Appointment(s)/Referral(s): Nate Melo MD [Primary Care Provider] - 1-2 days
[2022-12-25] MEDS ORDERED: ASPIRIN 325 MG TAB PO SCH (09:00)
[2022-12-25 09:16] VITALS: BP 160/60; PULSE 69; RESP 18; TEMP 99.2
== END 2022-12-25 11:12 | disposition home or self-care (01) ==
LOC: EC 16:11 → INTOOBSV 18:51 → 3SCARD 18:51 → UNDODISIN 12-25 11:12
PROVIDERS: ADMIT Family Medicine; ATTEND Family Medicine
DX: R11.2 Nausea with vomiting, unspecified (principal); R63.39 Other feeding difficulties; T36.3X5A Adverse effect of macrolides, initial encounter; U07.1 COVID-19; I10 Essential (primary) hypertension; G40.909 Epilepsy, unspecified, not intractable, without status epilepticus; Z86.011 Personal history of benign neoplasm of the brain; Z86.73 Personal history of transient ischemic attack (TIA), and cerebral infarction without residual deficits; Z95.5 Presence of coronary angioplasty implant and graft; Z79.899 Other long term (current) drug therapy; Z79.890 Hormone replacement therapy; Z79.82 Long term (current) use of aspirin; Z79.02 Long term (current) use of antithrombotics/antiplatelets; Z88.0 Allergy status to penicillin; Z88.1 Allergy status to other antibiotic agents; Z88.5 Allergy status to narcotic agent
CPT/HCPCS: 96374; 99285; 36415; 93005; 80053; 82550; 84484; 85025; 85610; 85730; 87636; 71046; 70450; G0378 ×2; J2405; 96361

== ENCOUNTER → 2023-04-08 | Outpatient (CLI) | payer MEDICARE ==
[2023-04-08 15:46] LABS: Carbon Dioxide 25.3 mmol/L (21.6-31.8); Chloride 105 mmol/L (96-109); Potassium 3.8 mmol/L (3.5-5.5); Sodium 143 mmol/L (135-145)
[2023-04-08 16:31] LABS: HCT 43.9 % (37.2-46.3); HGB 14.2 g/dL (12.0-15.0); MCH 30.5 pg (27.0-32.0); MCHC 32.3 g/dL (32.0-37.0); MCV 94.4 FL (80.0-97.0); NRBC Per 100 WBC 0 X 10*3/uL (0.00-0.01); Platelet Count 239 X 10*3/uL (140-440); RBC 4.65 X 10*6/uL (4.10-5.20); RDW 13.1 % (11.5-14.5); WBC 5.97 X 10*3/uL (4.50-10.00)
== END | disposition home or self-care (01) ==
LOC: LABPAT 09:49
PROVIDERS: ATTEND Internal Medicine Interventional Cardiology
DX: Z01.812 Encounter for preprocedural laboratory examination (principal); R07.9 Chest pain, unspecified
CPT/HCPCS: 80051; 82565; 84520; 85027

== ENCOUNTER 2023-04-14 06:04 | Day surgery (SDC) | payer MEDICARE ==
[2023-04-09 11:12] VITALS: BMI 30.5
[2023-04-14] MEDS ORDERED: ALPRAZolam 0.25 MG TAB PO PRN (06:24)
[2023-04-14] MEDS ORDERED: ALPRAZolam 0.5 MG TAB PO PRN (06:24)
[2023-04-14] MEDS: SODIUM CHLORIDE 0.9% 1,000 ML IV ONE (06:50)
[2023-04-14] MEDS ORDERED: VERAPAMIL 2.5 MG/ML 2 ML AMP ONE (07:18)
[2023-04-14] MEDS ORDERED: LIDOCAINE 1% INJ 10MG/ML (20 ML MDV) ONE (07:18)
[2023-04-14] MEDS ORDERED: HEPARIN SODIUM 1,000 UN/ML (10ML VL) ONE (07:25)
[2023-04-14] MEDS: MIDAZOLAM 2 MG/2 ML VIAL IVP ONE ×2 (07:47→08:08)
[2023-04-14] MEDS: LIDOCAINE 1% INJ 10MG/ML (20 ML MDV) SQ ONE (08:01)
[2023-04-14] MEDS: LIDOCAINE 1% INJ 10MG/ML (5 ML VIAL-PF) SQ ONE (08:01)
[2023-04-14] MEDS: VERAPAMIL SYRINGE (5 MG/10 ML) INTRAARTER ONE (08:02)
[2023-04-14] MEDS: HEPARIN SODIUM 1,000 UN/ML (10ML VL) IV ONE (08:04)
[2023-04-14] MEDS ORDERED: NITROGLYCERIN SL TABS 0.4 MG TAB SUBLINGUAL ONE (08:05)
[2023-04-14] MEDS: NITROGLYCERIN SL TABS 0.4 MG TAB SUBLINGUAL ONE (08:05)
[2023-04-14] MEDS ORDERED: fentaNYL (PF) 50 MCG/ML 2 ML AMP ONE (08:17)
[2023-04-14] MEDS: fentaNYL (PF) 50 MCG/1 ML VIAL IVP ONE (08:19)
[2023-04-14] MEDS: NITROGLYCERIN 1000MCG/10ML SYRINGE INTRACORON ONE (08:27)
[2023-04-14] MEDS: IOPAMIDOL-370 100ML BTL INJ ONE (08:39)
[2023-04-14] MEDS ORDERED: LORazepam 0.5 MG TAB PO PRN (08:50)
[2023-04-14] MEDS ORDERED: RX INFO: IV CONTRAST WAS GIVEN 1 EACH MISC MISCELLANE PRN (08:51)
[2023-04-14] MEDS ORDERED: ATROPINE SULFATE 0.1 MG/ML 10ML SYRINGE IV PRN (08:51)
[2023-04-14] MEDS ORDERED: NITROGLYCERIN SL TABS 0.4 MG TAB SUBLINGUAL PRN (08:51)
[2023-04-14] MEDS ORDERED: ZOLPIDEM 5 MG TAB PO PRN (08:51)
[2023-04-14] MEDS ORDERED: MAG HYDROX/AL HYDROX/SIMETH 30 ML CUP PO PRN (08:51)
[2023-04-14] MEDS ORDERED: MULTIVITAMINS, THERA 1 EACH TAB PO SCH (09:00)
--- NOTE | 2023-04-14 09:33 | P.PCN ---
Date of Procedure: 04/14/23 Operative Findings: CARDIAC CATHETERIZATION AND PERCUTANEOUS CORONARY INTERVENTION PERFORMING PHYSICIAN: John Ward MD, [facility] PROCEDURE PERFORMED: 1. Selective right and left coronary angiogram 2. Successful stenting of mid RCA using 3.5 x 18 mm Xience EDSON with an excellent angiographic results 3. Adjunctive use of intravascular imaging 4. 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 The right radial artery was cannulated using micropuncture technique under ultrasound guidance the micro-puncture wire passed easily then I placed 6-Serbian sheath. I gave the patient 2 mg of verapamil intra-arterial and 5000 as of heparin intravenously. Selective right and left coronary angiogram performed using JR4 and JL 3.5 catheters. After that I did intervene on the right coronary artery. The procedure was completed was no complication SELECTIVE CORONARY ANGIOGRAM: The right coronary artery: Large caliber vessel and a dominant vessel was critical disease involving the midportion was a tubular lesion. Left main: Is angiographically normal. Bifurcates into an LCx and LAD The left circumflex: Large-caliber vessel codominant vessel. The left circumflex gives rises into the first obtuse marginal branch which bifurcates into 2 subbranches. The upper circumflex branch appeared to have severe disease unchanged compared to before but the arteries about 2 mm vessel in diameter. The second obtuse marginal branch has an intermediate lesion. The left anterior descending artery: The LAD stent appeared to be patent. Proximal and distal to the stent there are 2 lesions appeared to be in the range of 50%. PCI OF THE RCA: Anticoagulation was initiated using heparin with continuous ACT monitoring. Subsequently I did engage the RCA using JR4 guiding catheter. I did wire the RCA using a run-through wire. Subsequently I did intravascular ultrasound which showed a diameter around 3 mm to 3.25 mm and the lesion appears to be not calcified. I did predilatation using 3.5 mm noncompliant balloon before I deployed 3.5 x 18 mm stent where the stent was positioned under fluoroscopy guidance and deployed under fluoroscopy guidance and post dilated after intravascular ultrasound again performed using 4 mm noncompliant balloon. Final angiogram showed good angiographic results and the procedure was completed was no complication CONCLUSION: Patent stent in the mid LAD. Intermediate disease involving the proximal and di stal edge of the stent. Intermediate disease involving the second obtuse marginal branch of the left circumflex Critical disease involving the mid LAD. I performed successful stenting of the mid LAD POSTPROCEDURE MANAGEMENT: 1. Dual antiplatelet therapy using aspirin and Plavix for at least 6 month 2. Aggressive cholesterol control 3. Follow-up with the patient
[2023-04-14] MEDS: ACETAMINOPHEN TAB 325 MG TAB ONE (10:27)
[2023-04-14] MEDS: ASPIRIN 325 MG TAB PO STA (10:33)
[2023-04-14] MEDS: SODIUM CHLORIDE 0.9% 1,000 ML in EMPTY BAG 1 BAG IV SCH ×2 (10:33→14:36)
[2023-04-14] MEDS: LOSARTAN 50 MG TAB PO SCH (13:29)
[2023-04-14] MEDS: amLODIPine 10 MG TAB PO SCH (13:29)
[2023-04-14] MEDS: METOPROLOL TARTRATE 25 MG TAB PO SCH (13:30)
[2023-04-14] MEDS: NON FORMULARY DRUG (Evolocumab [Repatha Syringe] 140 MG/ML Each) SQ SCH (14:44)
[2023-04-14] MEDS: OXcarbazepine 300 MG TAB PO SCH (20:15)
[2023-04-14] MEDS: ACETAMINOPHEN TAB 325 MG TAB PO PRN (20:19)
[2023-04-15 05:20] VITALS: TEMP 98.1
[2023-04-15] MEDS: LEVOTHYROXINE 75 MCG TAB PO SCH (05:50)
[2023-04-15] MEDS: MULTIVITAMINS, THERA 1 EACH TAB PO SCH (08:08)
[2023-04-15] MEDS: ASPIRIN 81 MG PO SCH (08:08)
[2023-04-15] MEDS: EZETIMIBE 10 MG TAB PO SCH (08:08)
[2023-04-15] MEDS: VIT A,C & E-LUTEIN-MINERALS 1 EACH TAB PO SCH (08:08)
[2023-04-15] MEDS: CLOPIDOGREL 75 MG TAB PO SCH (08:08)
[2023-04-15 08:33] VITALS: BP 139/76; PULSE 68; RESP 16
--- NOTE | 2023-04-15 09:50 | P.DS ---
Providers Attending physician: John Ward Consults: 04/14/23 08:52 Consult Physician Routine Consulting Provider: [facility] Consult Reason/Comments: Post Interventional patient Do you want consulting provider notified?: Already Contacted Primary care physician: Nate Melo [facility] Course: The patient is a 78-year-old female patient with known coronary artery disease and prior stenting of the LAD was seen in the office recently for further evaluation of chest discomfort and she underwent myocardial perfusion imaging stress test came in to be abnormal and subsequently she was admitted to the hospital yesterday and underwent a heart catheterization and was found to have severe disease involving the right coronary artery RCA. She underwent successful stenting of the RCA from right radial approach. She was seen and evaluated this morning. She is asymptomatic. She is hemodynamically stable with marginally low heart rate during sleep only. The patient right radial site is soft and nontender with no bruises with a good pulse. The patient is going to be discharged home on dual antiplatelet therapy. She is a statin intolerance and currently she is on city and also she is on PCSK9 inhibitors. I will f ollow-up with the patient next week in the office Plan - Discharge Summary Discharge Rx Participant: No New Discharge Prescriptions: Continue OXcarbazepine [Trileptal] 300 mg PO HS Losartan Potassium 100 mg PO QAM Levothyroxine Sodium [Synthroid] 75 mcg PO QAM LORazepam [Ativan] 0.5 mg PO DAILY PRN PRN Reason: Anxiety Multivit-Min/FA/Lycopen/Lutein [Centrum Silver Tablet] 1 tab PO DAILY Aspirin EC [Ecotrin Low Dose] 81 mg PO DAILY [place] [employer] Vitamin 1 tab PO DAILY amLODIPine 10 mg PO DAILY Ezetimibe [Zetia] 10 mg PO DAILY Clopidogrel [Plavix] 75 mg PO DAILY Evolocumab [Repatha Syringe] 140 mg SQ Q14D Metoprolol Tartrate 25 mg PO BID Discharge Medication List LORazepam [Ativan] 0.5 mg PO DAILY PRN 09/10/15 [History] Levothyroxine Sodium [Synthroid] 75 mcg PO QAM 09/10/15 [History] Losartan Potassium 100 mg PO QAM 09/10/15 [History] OXcarbazepine [Trileptal] 300 mg PO HS 09/10/15 [History] Clopidogrel [Plavix] 75 mg PO DAILY 04/19/22 [History] Evolocumab [Repatha Syringe] 140 mg SQ Q14D 04/19/22 [History] Ezetimibe [Zetia] 10 mg PO DAILY 04/19/22 [History] amLODIPine 10 mg PO DAILY 04/19/22 [History] Multivit-Min/FA/Lycopen/Lutein [Centrum Silver Tablet] 1 tab PO DAILY 10/01/22 [History] Aspirin EC [Ecotrin Low Dose] 81 mg PO DAILY 12/24/22 [History] Metoprolol Tartrate 25 mg PO BID 04/09/23 [History] [place] [employer] Vitamin 1 tab PO DAILY 04/09/23 [History] Follow up Appointment(s)/Referral(s): John Ward MD [STAFF PHYSICIAN] - 04/23/23 3:30 pm (FOLLOW UP APPOINTMENT MADE. ) Patient Instructions/Handouts: Coronary Intravascular Stent Placement (DC), After Radial Heart Catheterization (GEN) Discharge Disposition: HOME SELF-CARE
== END 2023-04-15 09:47 | disposition home or self-care (01) ==
LOC: CATHCVL 06:04 → 3SCARD 14:13 → CATHCVL 04-15 09:47
PROVIDERS: ATTEND Internal Medicine Interventional Cardiology
DX: I25.10 Atherosclerotic heart disease of native coronary artery without angina pectoris (principal); I10 Essential (primary) hypertension; E78.5 Hyperlipidemia, unspecified; Z95.5 Presence of coronary angioplasty implant and graft; Z79.82 Long term (current) use of aspirin; Z82.49 Family history of ischemic heart disease and other diseases of the circulatory system; Z79.899 Other long term (current) drug therapy; Z88.1 Allergy status to other antibiotic agents; Z88.8 Allergy status to other drugs, medicaments and biological substances; Z88.2 Allergy status to sulfonamides; Z91.09 Other allergy status, other than to drugs and biological substances
CPT/HCPCS: 93454; 76937; C9600; C1887; C1769 ×2; C1894; C1753; C1874; C1725 ×2; J2250; J2001; J1644; Q9967; J3010; J2305